=== PATIENT | female | born 1950 | race Caucasian/White ===

== ENCOUNTER 2020-04-17 10:02 | Outpatient (CLI) | payer MEDICARE, OTHER, SELFPAY ==
--- NOTE | ~2020-04-17 | MM_ITS ---
EXAMINATION: MM screening allie BI w mauricio HISTORY: Screening TECHNIQUE: Craniocaudal and mediolateral oblique 3-D tomosynthesis images were obtained and synthetic 2-D images were generated. CAD analysis was submitted and interpreted. COMPARISON: Comparison to multiple prior studies sequentially, with oldest reviewed study dated 12/16. BREAST PARENCHYMAL COMPOSITION: There are scattered areas of fibroglandular density. FINDINGS: Stable bilateral breast asymmetries and calcifications There is no evidence of suspicious m ass, calcification, or architectural distortion to suggest malignancy in either breast. There has bee n no suspicious interval change. IMPRESSION: 1. No mammographic evidence of malignancy. 2. Recommend routine screening mammography in one year. BI-RADS Category 2: Benign finding(s). Reviewed, dictated and finalized at location A.
--- NOTE | ~2020-04-17 | DEXA_ITS ---
Bone Density Report Name: Carolina Rai Age: 69 Sex: Female Ethnicity: White Date of : 1950 Indication: postmenopausal; cancer; asthma or emphysema; hysterectomy; Referring Provider: JameMesha Study: Bone densitometry was performed. Exam Date: April 17, 2020 Accession number: [id number] Bone Density: Region BMD T-score Z-score Classification AP Spine (L1, L2, L3) 0.954 -0.6 1.6 Normal Femoral Neck (Left) 0.603 -2.2 -0.3 Osteopenia Total Hip (Left) 0.761 -1.5 0.1 Osteopenia Total Hip Bilateral Avg 0.745 -1.6 -0.1 Osteopenia Femoral Neck (Right) 0.635 -1.9 0.0 Osteopenia Total Hip (Right) 0.729 -1.7 -0.2 Osteopenia World Health Organization criteria for BMD impression classify patients as: Normal (T-score at or above -1.0), Osteopenia (T-score between -1.0 and -2.5), or Osteoporosis (T-score at or below -2.5). 10-year Fracture Risk(1): Major Osteoporotic Fracture 12% Hip Fracture 2.7% Reported Risk Factors: [place] (), Neck BMD=0.603, BMI=31.2 (1) FRAX(R) Version 3.08. Fracture probability calculated for an untreated patient. Fracture probability may be lower if the patient has received treatment. Clinical Information Provided by Patient: Has used the following medications: Vitamin D, Calcium Has the following medical conditions: Asthma or Emphysema, Cancer, Hysterectomy Patient maximum height was 60 Menopause Age: 48 Drinks caffeinated beverages Onset of menses at age 13 Number of children 3 Impression: The patient has low bone mass, based on the Left Femoral Neck T-score. The patient has an estimated ten-year risk of hip fracture of 2.7% and an estimated ten-year risk of major fracture of 12%, based on the WHO FRAX algorithm. Discussion: BONE DENSITY IS LOW AT ONE OR MORE SKELETAL SITES. This patient's lowest T-score is low at one or more skeletal sites. It meets the World Health Organization's (WHO) criteria for ?low bone mass? (T-score between -1.0 and -2.5). The patient's 10-year risk of fracture as calculated by FRAX is less than the threshold where pharmacological therapy is recommended by the National Osteoporosis Foundation (NOF). However, all treatment decisions require clinical judgment and consideration of individual patient factors, including patient preferences, comorbidities, previous drug use, risk factors not captured in the FRAX model (e.g., frailty, falls, vitamin D deficiency, increased bone turnover, interval significant decline in bone density) and possible under or overestimation of fracture risk by FRAX. The patient should follow a healthful lifestyle (good nutrition with adequate calcium and vitamin D, and appropriate weight-bearing exercise). Follow-Up: Consider repeating this study in 2 to 3 years to reassess this patient's status, or sooner if t
== END 2020-04-17 10:03 | disposition home or self-care (01) ==
PROVIDERS: PCP Physician Assistant; Visit Provider Physician Assistant
DX: Z12.31 Encounter for screening mammogram for malignant neoplasm of breast (principal); Z78.0 Asymptomatic menopausal state; M85.89 Other specified disorders of bone density and structure, multiple sites
CPT/HCPCS: 77063; 77067; 77080

== ENCOUNTER 2021-04-19 09:01 | Outpatient (CLI) | payer MEDICARE, SELFPAY ==
--- NOTE | ~2021-04-19 | MM_ITS ---
EXAMINATION: MM screening allie BI w mauricio HISTORY: Screening TECHNIQUE: Craniocaudal and mediolateral oblique 3-D tomosynthesis images were obtained and synthetic 2-D images were generated. CAD analysis was submitted and interpreted. COMPARISON: Comparison to multiple prior studies sequentially, with oldest reviewed study dated 01/16. BREAST PARENCHYMAL COMPOSITION: Breast composed of scattered areas of fibroglandular density. FINDINGS: There is a new 8mm mass in the central aspect of the left breast, middle depth. There is a developing focal asymmetry lower aspect of the right breast posteriorly on MLO view. IMPRESSION: 1. Developing right breast asymmetry and left breast mass. 2. Additional mammographic views and possible breast ultrasound are recommended. BI-RADS Category 0: Incomplete: Needs additional imaging evaluation. Reviewed, dictated and finalized at location A. IMPRESSION: 1. Developing right breast asymmetry and left breast mass. 2. Additional mammographic views and possible breast ultrasound are recommended . BI-RADS Category 0: Incomplete: Needs additional imaging evaluation.
== END 2021-04-19 09:02 | disposition home or self-care (01) ==
LOC: ANHIMG 09:02
PROVIDERS: PCP Physician Assistant; Visit Provider Physician Assistant
DX: Z12.31 Encounter for screening mammogram for malignant neoplasm of breast (principal)
CPT/HCPCS: 77063; 77067

== ENCOUNTER 2021-05-07 12:06 | Outpatient (CLI) | payer MEDICARE, SELFPAY ==
--- NOTE | ~2021-05-07 | US_ITS ---
Please refer to diagnostic mammogram report dated 05/07/2021 for details. Reviewed, dictated and finalized at location A.
--- NOTE | ~2021-05-07 | MM_ITS ---
EXAMINATION: MM diagnostic allie BI w mauricio HISTORY: Follow-up breast asymmetries TECHNIQUE: Additional 3-D tomosynthesis images of the breasts were performed and synthetic 2-D images were generated. CAD analysis was submitted and interpreted. High resolution complete bilateral breas t ultrasound was performed. COMPARISON: 04/19/2021 BREAST PARENCHYMAL COMPOSITION: Breast composed of scattered areas of fibroglandular density. FINDINGS: MAMMOGRAPHIC FINDINGS: There are scattered asymmetries in the right breast which are less dense with spot compression views. No suspicious architectural distortion or abnormal calcifications. Next film there is a mass in the central aspect of the left breast measuring 9 mm . ULTRASOUND: Complete bilateral US of all 4 quadrants of the breasts and retroareolar region was reviewed. Normal heterogeneous echotexture in both breasts. No discrete mass is identified. IMPRESSION: 1. No sonographic correlate to 9 mm left breast mass located centrally. Stereotactic left breast biop sy recommended. BI-RADS Category 4. 2. No sonographic correlate to right breast asymmetries, likely scattered fibroglandular tissue. Six- month follow-up diagnostic mammogram and possible ultrasound recommended. BI-RADS Category 3. Reviewed, dictated and finalized at location A. IMPRESSION: 1. No sonographic correlate to 9 mm left breast mass located centrally. Stereot actic left breast biopsy recommended. BI-RADS Category 4. 2. No sonographic correlate to right breast asymmetries, likely scattered fibro glandular tissue. Six-month follow-up diagnostic mammogram and possible ultraso und recommended. BI-RADS Category 3.
== END 2021-05-07 12:07 | disposition home or self-care (01) ==
LOC: ANHIMG 12:07
PROVIDERS: PCP Physician Assistant; Visit Provider Physician Assistant
DX: R92.8 Other abnormal and inconclusive findings on diagnostic imaging of breast (principal)
CPT/HCPCS: 76641; 77062; 77066; G0279

== ENCOUNTER 2021-06-23 08:03 | Emergency (ER) | payer MEDICARE, SELFPAY ==
[2021-06-23 08:12] VITALS: BP 112/76; PULSE 102; RESP 18; TEMP 37.5; O2SAT 97
--- NOTE | 2021-06-23 08:18 | ED.URI ---
HPI - URI/Sore Throat General Chief Complaint: Upper Respiratory Infection Stated Complaint: sinus infection Time Seen by Provider: 06/23/21 08:24 Source: patient and RN notes reviewed Mode of arrival: ambulatory Limitations: no limitations History of Present Illness HPI Narrative: 70-year-old female presents with concern for sinus congestion, sinus pressure, postnasal drainage, rhinorrhea, persistent cough. Reports symptoms started on Thursday. Reports she has been taking Sudafed without relief. She denies shortness of breath, body aches, chills, fever, sweats. Reports she is vaccinated Covid. MD elicited complaint: cough and nasal congestion Related Data Home Medications Medication Instructions Recorded Confirmed escitalopram oxalate 10 mg tablet 10 mg PO DAILY 04/15/21 06/23/21 omeprazole 20 mg capsule,delayed 20 mg PO DAILY 04/15/21 06/23/21 release celecoxib 200 mg PO DAILY 06/23/21 06/23/21 fluticasone propion-salmeterol 1 puff INHALATION PRN PRN 06/23/21 06/23/21 [Advair HFA] rosuvastatin 5 mg PO DAILY 06/23/21 06/23/21 Allergies Allergy/AdvReac Type Severity Reaction Status Date / Time nitrofurantoin Allergy Severe Hives Verified 06/23/21 08:31 cephalexin Allergy Unknown Hives Verified 06/23/21 08:31 codeine Allergy Unknown Abdominal Verified 06/23/21 08:31 Pain Penicillins Allergy Unknown Swelling Verified 06/23/21 08:31 Review of Systems Review of Systems: CONSTITUTIONAL: Denies malaise, chills, sweats, or fever. EYES: Denies visual changes, redness, or discharge. ENT: Reports rhinorrhea, congestion, sinus pain, and scratchy throat. CARDIOVASCULAR: Denies chest pain, palpitations, or edema. RESPIRATORY: Reports cough. Denies dyspnea. GASTROINTESTINAL: Denies abdominal pain, nausea, vomiting, diarrhea SKIN: Denies rash or itching. MUSCULOSKELETAL: Denies myalgia. NEUROLOGIC: Reports headache. All systems reviewed & are unremarkable except as noted in HPI and below PMFSH Past Medical History Medical History (Updated 06/23/21 @ 08:44 by Ally Polanco NP) ADHD Asthma Depression Surgical History Surgical History H/O adenoidectomy History of appendectomy Hx of hysterectomy Hx of tonsillectomy Family History Family History Sibling Hypertension Grandparent Cerebrovascular accident Diabetes mellitus Father Family history of malignant neoplasm of urinary bladder, Onset Age: 68 Family history of alcoholism, Onset Age: 68 Mother Family history of dementia, Onset Age: 84 Social History Social History Smoking status: Never smoker Alcohol intake: current Comments At time of signature, agree with nursing past medical, surgical, social and family history. There is no relevant family history pertinent to the presenting complaint Exam Narrative: GENERAL: Well-appearing, well-nourished, and in no acute distress. HEAD: Normocephalic EYES: PERRLA, conjunctivae clear ENT: Nares clear, turbinates edematous and erythematous, clear discharge. Mucous membranes moist. TM pearly costello with dull light reflex bilaterally; no tragal tenderness. Oropharynx not erythematous without lesions. Tonsils not enlarged and without exudate, no drooling, no hoarseness, no trismus, uvula midline. NECK: Supple. No lymphadenopathy CHEST: Clear to auscultation, breath sounds equal. No wheezing, rhonchi, rales, or stridor. No respiratory distress, speaks in full sentences. Cough noted HEART: Regular rate and rhythm. No murmur heard. SKIN: Warm, dry, no rash. NEURO: Alert and oriented x3. PSYCH: Normal mood and affect Course Course Emergency Course: Patient is aware of diagnosis, understands and agrees to treatment plan. Anticipatory guidance given. Patient agrees to follow-up as directed and is aware of reasons to see
== END 2021-06-23 08:55 | disposition home or self-care (01) ==
PROVIDERS: Emergency Provider Nurse Practitioner; PCP Physician Assistant
DX: J06.9 Acute upper respiratory infection, unspecified (principal); Z20.822 Contact with and (suspected) exposure to COVID-19; J45.909 Unspecified asthma, uncomplicated; F32.A Depression, unspecified
CPT/HCPCS: 87426; 99213; C9803; G0463

== ENCOUNTER 2023-11-15 08:11 | Emergency (ER) | payer MEDICARE, SELFPAY ==
--- NOTE | ~2023-11-15 | XR_ITS ---
XR ribs RT 2V w CXR 2V DATE: 11/15/2023 08:56 INDICATION: Right chest pain following fall today TECHNIQUE: PA and lateral chest. 3 views of the right ribs. COMPARISON: 04/16/2015 2 view chest 05/24/2015 CT chest FINDINGS: No displaced right rib fracture is evident. Bilateral glenohumeral osteoarthritis is noted. Dextroscoliosis and degenerative spurring of the thoracolumbar spine. Osteopenia. Heart size is within normal range. No hilar or mediastinal enlargement. No pulmonary infiltrate or co nsolidation, pleural effusion or pulmonary vascular congestion or pneumothorax. Clips, right upper quadrant. IMPRESSION: No displaced right rib fracture is evident No active cardiopulmonary disease Reviewed, dictated and finalized at location A.
[2023-11-15 08:14] VITALS: BP 150/68; PULSE 62; RESP 20; TEMP 36.4; O2SAT 98
[2023-11-15] MEDS: TETANUS,DIPHTHERIA,AC PERTUSSIS ADULT (0.5 ML) BOOSTRIX IM (08:45)
--- NOTE | 2023-11-15 09:06 | ED.GENADULT ---
HPI - General Adult General Chief complaint: Wound/Laceration Stated complaint: dog bite Time Seen by Provider: 11/15/23 08:26 History of Present Illness HPI narrative: Patient is a 73-year-old female who presents ER with right-sided chest wall and breast pain after fall this morning. She was walking a terrier when it took off on her and she tripped and fell forwards. She did not strike her head or lose consciousness. She does have bruising to her right elbow as well as her right knee. She is ambulatory and has full range of motion in both extremities. She is unsure when her last tetanus shot was. No difficulty breathing but has mild pain with movement and deep breath. She does not take any blood thinners. Related Data Home Medications Medication Instructions Recorded Confirmed escitalopram oxalate 10 mg tablet 10 mg PO DAILY 04/15/21 04/15/23 (Lexapro) omeprazole 20 mg capsule,delayed 20 mg PO DAILY 04/15/21 04/15/23 release fluticasone propionate 115 1 puff inhalation PRN PRN 06/23/21 04/15/23 mcg-salmeterol 21 mcg/actuation difficulty breathing HFA inhaler (Advair HFA) rosuvastatin 5 mg tablet 5 mg PO DAILY 06/23/21 04/15/23 tamoxifen 20 mg tablet 20 mg PO DAILY 04/16/22 04/15/23 Allergies Allergy/AdvReac Type Severity Reaction Status Date / Time nitrofurantoin Allergy Severe Hives Verified 11/15/23 08:18 cephalexin Allergy Unknown Hives Verified 11/15/23 08:18 codeine Allergy Unknown Abdominal Verified 11/15/23 08:18 Pain Penicillins Allergy Unknown Swelling Verified 11/15/23 08:18 Review of Systems Review of Systems: All systems reviewed & are unremarkable except as noted in HPI and below Constitutional: Constitutional: Reports no additional constitutional complaints ENT: Reports system reviewed and no additional complaints, except as documented Cardiovascular: Cardiovascular: Reports no additional cardiovascular complaints Respiratory: Respiratory: Reports no additional respiratory complaints Musculoskeletal: Musculoskeletal: Denies arthralgias, Denies joint swelling and Denies muscle cramps PMFSH Past Medical History Medical History ADHD Asthma Depression Surgical History Surgical History H/O adenoidectomy History of appendectomy History of lumpectomy Hx of hysterectomy Hx of tonsillectomy Family History Family History Sibling Hypertension Grandparent Cerebrovascular accident Diabetes mellitus Father Family history of malignant neoplasm of urinary bladder, Onset Age: 68 Family history of alcoholism, Onset Age: 68 Mother Family history of dementia, Onset Age: 84 Social History Social History Smoking status: Never smoker Alcohol intake: current Exam Narrative: GENERAL: Well-appearing, well-nourished, and in no acute distress. HEAD: Normocephalic, atraumatic. ENT: Mucous membranes moist. CHEST: Clear to auscultation. No respiratory distress. No bruising or palpable hematoma to the right breast. No chest wall tenderness. HEART: Regular rate and rhythm. Normal peripheral pulses. ABDOMEN: Soft, nontender, nondistended EXTREMITIES: Normal range of motion. No edema. Abrasion over the right lateral elbow and right lateral knee with no joint line tenderness or other restriction mobility. SKIN: Warm, dry, no rash. NEURO: Alert and oriented x3. PSYCH: Normal mood and affect. Course Course Emergency Course: Tetanus updated. Imaging negative. Her appropriate for discharge home with anti-inflammatory medication. Educated that she could develop a bruise over her breast or chest wall in the coming days. Vital Signs Vital signs: Vital Signs Temperature 97.6 F 11/15/23 08:14 Pulse Rate 62 11/15/23 08:14 Res
[2023-11-15 09:40] VITALS: BP 142/68; PULSE 64; RESP 19; O2SAT 98
== END 2023-11-15 09:42 | disposition home or self-care (01) ==
PROVIDERS: Emergency Provider Emergency Medicine; PCP Physician Assistant
DX: R07.89 Other chest pain (principal); S50.311A Abrasion of right elbow, initial encounter; S80.211A Abrasion, right knee, initial encounter; Z23 Encounter for immunization; J45.909 Unspecified asthma, uncomplicated; F32.A Depression, unspecified; F90.9 Attention-deficit hyperactivity disorder, unspecified type; Z90.710 Acquired absence of both cervix and uterus
CPT/HCPCS: 71046; 71100; 90471; 90715; 99283

== ENCOUNTER 2024-02-10 07:41 | Outpatient (CLI) | payer MEDICARE, SELFPAY ==
--- NOTE | ~2024-02-10 | DEXA_ITS ---
Bone Density Report Name: CAMACHO ESCALERA Age: 73 Sex: Female Ethnicity: White Date of : 1950 Indication: osteopenia; cancer; asthma or emphysema; Referring Provider: DELORES, MARIAMA Study: Bone densitometry was performed. Exam Date: February 10, 2024 Accession number: [id number] Bone Density: Region BMD T-score Z-score Classification AP Spine(L1-L4) 1.054 0.1 2.5 Normal Femoral Neck (Left) 0.622 -2.0 0.1 Osteopenia Total Hip (Left) 0.804 -1.1 0.7 Osteopenia Femoral Neck (Right) 0.721 -1.2 0.9 Osteopenia Total Hip (Right) 0.756 -1.5 0.3 Osteopenia Total Hip Mean 0.780 -1.3 0.5 Osteopenia World Health Organization criteria for BMD impression classify patients as: Normal (T-score at or above -1.0), Osteopenia (T-score between -1.0 and -2.5), or Osteoporosis (T-score at or below -2.5). 10-year Fracture Risk(1): Major Osteoporotic Fracture 13% Hip Fracture 3.3% Reported Risk Factors: [place] (), Neck BMD=0.622, BMI=31.8 (1) FRAX(R) Version 3.08. Fracture probability calculated for an untreated patient. Fracture probability may be lower if the patient has received treatment. Previous Exams: Region Exam Age BMD T-score BMD Change BMD Change Date g/cm2 vs Baseline vs Previous Total Hip(Left) 02/10/2024 73 0.804 -1.1 0.042 (5.5%)* 0.042 (5.5%)* 04/17/2020 69 0.761 -1.5 Total Hip(Right) 02/10/2024 73 0.756 -1.5 0.027 (3.7%) 0.027 (3.7%) 04/17/2020 69 0.729 -1.7 *Denotes significance at 95% confidence level, LSC for Total Hip = 0.027 g/cm2 Clinical Information Provided by Patient: Has used the following medications: Vitamin D Has the following medical conditions: Asthma or Emphysema, Cancer Patient maximum height was 60.0 Menopause Age: 48 Drinks caffeinated beverages Onset of menses at age 12 Number of children 3 Impression: The patient has low bone mass, based on the Left Femoral Neck T-score. The patient has an estimated ten-year risk of hip fracture of 3.3% and an estimated ten-year risk of major fracture of 13%, based on the WHO FRAX algorithm. No significant bone loss was observed. Discussion: BONE DENSITY IS LOW AT ONE OR MORE SKELETAL SITES. THE PATIENT'S BMD AND CLINICAL RISK FACTORS CONTRIBUTE TO THIS PATIENT'S INCREASED RISK OF FRACTURE. This patient's lowest T-score is low at one or more skeletal sites. It meets the World Health Organization's (WHO) criteria for ?low bone mass? (T-score between -1.0 and -2.5).
== END 2024-02-10 07:42 | disposition home or self-care (01) ==
LOC: ANHIMG 07:43
PROVIDERS: PCP Physician Assistant; Visit Provider Physician Assistant
DX: Z78.0 Asymptomatic menopausal state (principal); M85.89 Other specified disorders of bone density and structure, multiple sites
CPT/HCPCS: 77080

== ENCOUNTER 2025-02-21 17:52 | Emergency (ER) | payer MEDICARE, SELFPAY ==
--- OUTSIDE RECORDS SUMMARY | 2018-01-28 06:15 | XMS_ITS | Continuity of Care Document ---
Author Organization [facility] Address [address] [address] Phone Care Team Providers Care Toddler Caregiver Name Role Phone Feliciano Lauren MD Unavailable Unavailable Allergies, Adverse Reactions, Alerts Substance Reaction Status Criticality Penicillins Active No Information Medications Medication Instructions Dosage Effective Dates (start - stop) Status Comments Lexapro 5 mg tablet take 1 tablet by ora l route every day 5 MG - Active Procedures Procedure Date OFFICE/OUTPATIENT VISIT EST OFFICE/OUTPATIENT VISIT EST OFFICE/OUTPATIENT VISIT EST OFFICE/OUTPATIENT VISIT EST OFFICE/OUTPATIENT VISIT [facility] Advance Directives Directive Yes / No Effective Date File Name No Information Encounters Encounter Description Practice Location Reason(s) For Visit Diagnoses Date Provider Providers Copied on Encounter OFFICE/OUTPA TIENT VISIT EST [facility], [address] [place] [address], [id number], tel:[phone] [facility] Zain Primary osteoarthritis of right knee 8 Xin Wiggins. [address] [place], [place], [id number] . tel: [phone] OFFICE/OUTPA TIENT VISIT EST [facility], [address] [place] [address], [id number], tel:[phone] [facility] Zain FU L KNEE EVAL R KNEE (chief complaint) Body mass index (BMI) 31.0-31.9, adultPrimary osteoarthritis of left kneePrimary osteoarthritis of right knee 8 Xin Wiggins. [address] [place], [place], [id number] . tel: [phone] OFFICE/OUTPA TIENT VISIT [facility], [address] [place] [address], [facility], [phone] [facility] [place] Body mass index (BMI) 30.0-30.9, adultPrimary osteoarthritis of left knee [facility]. [address] [place] [address], [id number] . tel: [phone] OFFICE/OUTPA TIENT VISIT [facility], [address] [place] [address], [id number], [phone] [facility] Primary osteoarthritis of left knee 7 [facility]. [address] [place] [address], [id number] . tel: [phone] OFFICE/OUTPA TIENT VISIT [facility], [address] [place] [address], [id number], [phone] [facility] [place] Body mass index (BMI) 30.0-30.9, adultPrimary osteoarthritis of left kneePrimary osteoarthritis of right knee 7 [facility]. [address] [place] [address], [id number] . tel: [phone] Family History Family Member Type Diagnosis Age At Onset Brother Problem (finding) Alive and well Payers Payer name Insurance type Covered constitution party ID Genoveva mcdonough(s) [employer] [facility] Employees [place] [id number] Social History Type Description Quantity Date Captured Comments Alcohol Use Details Unknown Caffeine Use Details Unknown Tobacco Use Status Never smoked tobacco 2017 Smoking Status Never smoker Non-Smoking Tobacco Use Details : No Details Available : No Details Available Sex Female Chief Complaint And Reason For Visit No Information Reason For Referral Reason For Referral No Information Plan Of Treatment Date Type Action Status Referral Ordered: RADEX KNE 1/2 VIEWS LT ordered Referral Ordered: RADEX KNE 3 VIEWS RT ordered Referral Ordered: RADEX KNE 1/2 VIEWS RT ordered Referral Ordered: RADEX KNE 3 VIEWS LT ordered History Of Present Illness Encounter Date Complaint History Of Prese nt Illness FU L KNEE EVAL R KNEE Functional Status Date Functional Assessmen t No Information Instructions Date Instruction Additional Infor mation activity as tolerated Related to Primary osteoarthritis of right knee apply heating pad or ice as tolerated Related to Primary osteoarthritis of right knee Prescribed activity/ exercise education Related to Body mass index (BMI) 31.0-31.9, adult apply heating pad or ice as tolerated Related to Primary osteoarthritis of right knee activity as tolerated Related to Primary osteoarthritis of right knee Giving encouragement to exercise Related to Body mass index (BMI) 30.0-30.9, adult activity as tolerated Related to Primary osteoarthritis of left knee apply heating pad or ice as tolerated Related to Primary osteoarthritis of left knee Fall risk home exerc ise program handout provided activity as tolerated Related to Primary osteoarthritis of left knee apply heating pad or ice as tolerated Related to Primary osteoarthritis of left knee elevate higher than your heart R elated to Primary osteoarthritis of left knee immobilize if directed Related t o Primary osteoarthritis of left knee home exercise program Related to Primary osteoarthritis of left knee home exercise program Related to Primary osteoarthritis of left knee apply heating pad or ice as tolerated Related to Primary osteoarthritis of left knee Giving encouragement to exercise Related to Body mass index (BMI) 30.0-30.9, adult Assessments Type Assessment Date assessment Primary osteoarthritis of right knee Patient Care Teams Name Effective Dates (start - stop) Status Members No Information
--- NOTE | ~2025-02-21 | CT_ITS ---
EXAMINATION: CTA brain carotid DATE: 02/21/2025 21:34 CDT INDICATION: Vertigo. TECHNIQUE: Computed tomographic angiography (CTA) of the head was performed without and with 100 mL Omnipaque-350 intravenous contrast. CTA of the neck was performed with intravenous contrast. The dose-length product was 979.57 mGy-cm. Maximum intensity projection and volume rendered 3D-reconstructions were created by the technologist on a separate workstation. COMPARISON: CT dated 02/21/2025. FINDINGS: HEAD CTA: No intracranial vascular abnormality. No evidence for aneurysm, significant stenosis or occlusion. Mild intracranial atherosclerosis. Codominant vertebral arteries. NECK CTA: Vertebral arteries are widely patent. The common carotid arteries are widely patent at the origins. No evidence for dissection or significant stenosis in either carotid artery. Lung apices are unremarkable. Visualized aspects of the aorta are unremarkable. IMPRESSION: 1: Unremarkable CT angiography brain and neck. Reviewed, dictated and finalized at location A.
--- NOTE | ~2025-02-21 | CT_ITS ---
EXAMINATION: CT brain wo con DATE: 02/21/2025 19:17 INDICATION: Dizziness TECHNIQUE: Computed tomography (CT) of the head was performed without intravenous contrast. The dose-length product was 605.33 mGy-cm. COMPARISON: None FINDINGS: Brain parenchymal volume is normal for age. There are scattered mild periventricular and subcortical white matter changes, most likely related to small vessel ischemic disease (microangiopathy). Paranasal sinuses and mastoids are pneumatized. No depressed skull fractures. There is intracranial atherosclerosis. IMPRESSION: 1. No acute intracranial abnormality. Reviewed, dictated and finalized at location A.
--- NOTE | ~2025-02-21 | XR_ITS ---
EXAMINATION: XR chest 2V 02/21/2025 19:20 INDICATION: Weakness PROCEDURE: 2 view chest COMPARISON: 11/15/2023 FINDINGS: The lungs are clear. The cardiomediastinal silhouette is within normal limits. There are no pleural effusions. There is no pneumothorax suspected. There is accentuated kyphosis at the thoracolumbar junction. Moderate thoracic spondylosis. IMPRESSION: 1: NO ACUTE CARDIOPULMONARY DISEASE. Reviewed, dictated and finalized at location A.
--- OUTSIDE RECORDS SUMMARY | 2025-02-21 17:00 | XMS_ITS | Encounter Summary ---
Author Organization [facility] Healthcare Address [address] [place] [address] Care Team Providers Care Machine Printer Name Role Phone Mesha Kilgore Primary Care Provider [phone] Stan Mcconnell MD Unavailable [phone] Sylvia Gunn MD Unavailable Lorene Palma MD PhD Unavailable [phone] Reason for Visit * Reason Comments Dizziness Nauseated, fatigue Encounter Details Date Type Department Care Team (Late st Contact Info) Description 02/21/2025 5:00 PM CDT Office Visit [facility] Medical Group Convenient Care at [address] [address] Ayesha Henderson NP [address] [place] [id number] Dizziness (Primary Dx); Intractable headache, unspecified chronicity pattern, unspecified headache type; Fatigue, unspecified type Social History Tobacco Use Types Packs/Day Years Used Date Smoking Tobacco: Never Smokeless Tobacco: Never Alcohol Use Standard Drinks/Week Comments Yes 0 (1 standard drink = 0.6 oz pur e alcohol) Socially AUDIT-C Answer Date Recorded Q1: How often do you have a drink containing alc ohol? Monthly or less 12/06/2024 Q2: How many drinks containi ng alcohol do you have on a typical day when you are drinking? 1 or 2 12/06/2024 Q3: How often do you have si x or more drinks on one occasion? 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 Gender Identity Not on file Sexual Orientation Not on file Occupation Industry Job Start Date Job End Date Retired Not on file Not on file Not on file documented as of this encounter Last Filed Vital Signs Vital Sign Reading Time Taken Comments Blood Pressure 135/84 02/21/2025 4:49 PM CDT Pulse 65 02/21/2025 4:49 PM CDT Temperature 36.8 C (98.3 F) 02/21/2025 4:42 PM CDT Respiratory Rate 18 02/21/2025 4:49 PM CDT Oxygen Saturation 97% 02/21/2025 4:49 PM CDT Inhaled Oxygen Concentration - - Weight 74.4 kg (164 lb) 02/21/2025 4:42 PM CDT Height - - Body Mass Index 30 12/12/2024 11:47 AM CDT documented in this encounter Progress Notes * Ayesha Henderson, PANTOGRAPH MACHINE OPERATOR - 02/21/2025 5:00 PM CDT Images from the original note were not included. Subjective/Objective Patient ID: Caroilna Rai is a 74 y.o. female. This patient has verbally consented to recording this visit in order to utilize AI technology in generating this note. Chief Complaint Dizziness (Nauseated, fatigue /) History of Present Illness Carolina Rai is a 74 year old female who presents with dizziness and nausea. She is accompanied by her daughter. She has been experiencing dizziness and nausea since Thursday, initially attributing the symptoms to fatigue and overexertion. Despite resting, the dizziness persisted into the next day, accompanied bynausea. The dizziness occurs without specific triggers and can happen even when sitting still. She e xperienced vomiting on Thursday morning after eating scrambled eggs and toast, which did not alleviate her symptoms. She has a history of vertigo, with a single episode occurring five years ago. She does not take medication specifically for vertigo but mentions that her current medications cause her to shake. She experiences nausea and shaking when hungry or after eating, which she attempts to alleviate by eatingmore, though this does not help. On Thursday, she experienced a severe headache, described as 'horrible,' coinciding with the onset ofher current symptoms. She also reports feeling weak and wobbly, with her daughter noting occasionalconfusion, which she attributes to stress. 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 She has gained ten pounds recently, which she attributes to eating more in an attempt to feel better. She tries to eat healthily, including fish and salads. No recent accidents or falls. No vision changes, blurry vision, spots, chest pain, difficulty breathing, or double vision currently. No recent ear issues. Review of Systems All other systems reviewed and are negative. Physical Exam HEENT: Ears normal. CHEST: Lungs clear to auscultation. CARDIOVASCULAR: Heart sounds normal. NEUROLOGICAL: Neurological exam normal. Physical Exam Vitals reviewed. Constitutional: General: She is not in acute distress. Appearance: Normal appearance. She is not ill-appearing. HENT: Head: Normocephalic. Mouth/Throat: Lips: [place]. Eyes: Extraocular Movements: Right eye: Normal extraocular motion and no nystagmus. Left eye: Normal extraocular motion and no nystagmus. Cardiovascular: Rate and Rhythm: Normal rate and regular rhythm. Pulmonary: Effort: Pulmonary effort is normal. Breath sounds: Normal breath sounds. Skin: General: Skin is warm. Neurological: General: No focal deficit present. Mental Status: She is alert and oriented to person, place, and time. Cranial Nerves: Cranial nerves 2-12 are intact. Sensory: Sensation is intact. Coordination: Coordination is intact. Gait: Gait is intact. Comments: [place] Hallpike maneuver not tolerated by patient due to pain and dizziness. Psychiatric: Mood and Affect: Mood normal. Vitals: 02/21/25 1642 02/21/25 1648 02/21/25 1649 BP: 134/78 126/85 135/84 BP Location: Right arm Right arm Right arm Patient Position: Lying Sitting Standing Pulse: 75 63 65 Resp: 18 18 Temp: 36.8 ??C (98.3 ??F) TempSrc: Continuous Temporal Temperature SpO2: 97% 97% 97% Weight: 74.4 kg (164 lb) Past Medical History: Diagnosis Date Asthma Breast cancer (HCC) Depression History of radiation therapy Hyperlipidemia PONV (postoperative nausea and vomiting) Sleep apnea Current Outpatient Medications: Advair HFA 115-21 mcg/actuation inhaler, INHALE 2 PUFFS BY MOUTH TWICE DAILY FOR 30 DAYS FOR ASTHMAAND RINSE MOUTH AND SPIT AFTER USE, Disp: , Rfl: albuterol HFA (PROVENTIL HFA,VENTOLIN HFA,PROAIR HFA) 90 mcg/actuation inhaler, INHALE 1 TO 2 PUFFSBY MOUTH EVERY 4 TO 6 HOURS NEEDED FOR SHORTNESS OF BREATH FOR WHEEZING, Disp: , Rfl: calcium carb-D3-mag ox-zinc ox 333 mg-133 unit -133 mg-5 mg tablet, Take by mouth, Disp: , Rfl: cholecalciferol (VITAMIN D-3) 25 mcg (1,000 unit) tablet, Take 1 tablet (1,000 Units total) by mouth college hire before breakfast, Disp: , Rfl: cyanocobalamin (Vitamin B-12) 50 mcg tablet, Take 1 tablet (50 mcg total) by mouth daily, Disp: , Rfl: escitalopram (LEXAPRO) 20 mg tablet, Take 1 tablet by mouth once daily, Disp: 90 tablet, Rfl: 0 fluticasone (FLONASE) 50 mcg/actuation nasal spray, Administer 1 spray into each nostril daily, Disp: 16 g, Rfl: 3 omeprazole (PriLOSEC) 40 mg capsule, Take 1 capsule by mouth once daily, Disp: 90 capsule, Rfl: 2 rosuvastatin (CRESTOR) 5 mg tablet, Take 1 tablet (5 mg total) by mouth 3 (three) times a week, Disp: 43 tablet, Rfl: 1 tamoxifen (NOLVADEX) 20 mg tablet, Take 1 tablet (20 mg total) by mouth daily, Disp: 90 tablet, Rfl: 3 ubidecarenone (coenzyme Q10) 100 mg tablet, Take 100 mg by mouth every other day, Disp: , Rfl: vitamin E (AQUASOL E) 400 unit capsule, Take 2 capsules (800 Units total) by mouth daily, Disp: , Rfl: Allergies Allergen Reactions Nitrofurantoin Hives Cephalexin Hives Penicillins Swelling Codeine Nausea & Vomiting Social History Tobacco Use Smoking status: Never Smokeless tobacco: Never Substance and Sexual Activity Drug use: Yes Types: Alcohol Comment: occaisonaly- special occasions Sexual activity: Not Currently Partners: Male Alcohol Use: Not At Risk (12/06/2024) AUDIT-C Frequency of Alcohol Consumption: Monthly or less Average Number of Drinks: 1 or 2 Frequency of Binge Drinking: Never Past Surgical History: Procedure Laterality Date BLADDER SUSPENSION 07/2011 BREAST BIOPSY Right 06/05/2021 DCIS possible invasion BREAST BIOPSY Left 2020 begnin EYE SURGERY 2019 bilateral cataracts HYSTERECTOMY 07/2011 Partial JOINT REPLACEMENT Bilateral knees rt 2018December 2019 KNEE SURGERY Left 06/2019 MASTECTOMY, PARTIAL Right 07/29/2021 Assessment/Plan 1. Dizziness (Primary) - ECG 12 lead - POCT glucose 2. Intractable headache, unspecified chronicity pattern, unspecified headache type 3. Fatigue, unspecified type Results Recent Results (from the past 4 hours) POCT glucose Collection Time: 02/21/25 5:13 PM Result Value Ref Range Glucose Blood, POC 108 Normal Fasting 70 - 100, Random <200 mg/dL Assessment & Plan Acute dizziness and vertigo with associated nausea and vomiting Acute dizziness and vertigo with nausea and vomiting. Differential includes cardiac and neurological causes. Neurological exam normal. - Check blood sugar level and perform EKG. 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 - Discussed meclizine for vertigo. - Attempted the [place]-Hallpike maneuver however patient was not tolerating it, given symptoms that patient was having and medical history, I determined that I was going to send patient to the ER for further evaluation so did not push trying the [place]-Hallpike maneuver again. - Recommend ER visit to rule out possible neurologic or cardiac etiology of symptoms Acute headache Severe headache coincided with dizziness and nausea. Tremor possibly medication-induced Tremor possibly related to medication use. No specific medication identified. Education -GO TO ER, daughter is driving her Disposition Treatment plan including expectations, follow up, and return precautions discussed with patient/parent, verbalizes understanding. Medication dosage, use, and potential adverse reactions discussed with patient/parent. Advised to follow up with PCP if symptoms do not resolve as expected or sooner if condition worsens. Signs/symptoms warranting ER evaluation reviewed. Patient and/or guardian was given an opportunity to ask questions, questions answered. Ayesha Henderson NP This office note has been partially dictated using [employer]vas[employer] software, and as a result portions of the record may have been created with this software. Occasional wrong-word or '[id number]' substitutions may have occurred due to the inherent limitations of voice recognition software. Read the chartcarefully and recognize, using context, where substitutions have occurred. Cosigned by Bandar Stafford MD at 02/21/2025 5:54 PM CDT documented in this encounter Plan of Treatment Not on file documented as of this encounter Procedures Procedure Name Priority Date/Time Associated Diagnosis Comments ECG 12-LEAD Routine 02/21/2025 5:21 PM CDT Dizziness POCT GLUCOSE Routine 02/21/2025 5:13 PM CDT Dizziness documented in this encounter Results * ECG 12 lead (02/21/2025 5:21 PM CDT) Ayesha Henderson NP ECG ORDERABLES Final Result * POCT glucose (02/21/2025 5:13 PM CDT) [facility] Glucose Blood, POC 108 Normal Fasting 70 - 100, Random <200 mg/dL Blood 02/21/2025 5:13 PM CDT us Ayesha Henderson NP POINT OF CARE TEST ORDERABLES Final Result documented in this encounter Visit Diagnoses Diagnosis Dizziness- Primary Dizziness and giddiness Intractable headache, unspecified chronicity pattern, unspecified headache type Fatigue, unspecified type documented in this encounter Care Teams Machine Printer Relationship Specialty Start Date End Date Mesha Kilgore PA [address] [facility] [address] [place] [address] PCP - General Internal Medicine 10/19/18 Stan Mcconnell MD [address] [facility] [address] [place] [address] [address] Joinery Factory Worker Cardiology 06/08/19 Sylvia Gunn MD [address] [address] Surgeon Surgical Oncology 08/05/21 Lorene Palma MD PhD [address] [facility] [address] [place] [address] Radiation Oncologist Radiation Oncology 08/30/21 documented as of this encounter
--- OUTSIDE RECORDS SUMMARY | 2025-02-21 17:00 | XMS_ITS | Encounter Summary ---
Author Organization [facility] Healthcare Address [address] [place] [address] Care Team Providers Care Attendant Honor Bar Name Role Phone Mesha Kilgore Primary Care Provider [phone] Stan Mcconnell MD Unavailable [phone] Sylvia Gunn MD Unavailable [phone] Lorene Palma MD PhD Unavailable [phone] Reason for Visit * Reason Comments Dizziness Nauseated, fatigue Encounter Details Date Type Department Care Team (Late st Contact Info) Description 02/21/2025 5:00 PM CDT Office Visit [facility] Medical Group Convenient Care at [address] [address] Ayesha Henderson NP [address] [place] [address] Dizziness (Primary Dx); Intractable headache, unspecified [...] on file 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 Subjective/Objective Patient ID: Carolina Rai is a 74 y.o. female. This [...] not ill-appearing. HENT: Head: Normocephalic. Mouth/Throat: Lips: Sylvia. Eyes: Extraocular Movements: Right eye: Normal extraocular [...] is intact. Gait: Gait is intact. Comments: [place] Hallpike maneuver not tolerated by patient due [...] 1 tablet (1,000 Units total) by mouth facilities management executive before breakfast, Disp: , Rfl: cyanocobalamin (Vitamin [...] Discussed meclizine for vertigo. - Attempted the [place]-Hallpike maneuver however patient was not tolerating it, given symptoms that patient was having and medical history, I determined that I was going to send patient to the ER for further evaluation so did not push trying the [place]-Hallpike maneuver again. - Recommend ER visit to [...] office note has been partially dictated using [email or web address] software, and as a result portions of the record may have been created with this software. Occasional wrong-word or '[id number]' substitutions may have occurred due to the [...] * POCT glucose (02/21/2025 5:13 PM CDT) [facility] Glucose Blood, POC 108 Normal Fasting 70 - 100, Random <200 mg/dL Blood 02/21/2025 5:13 PM CDT us Ayesha Henderson NP POINT OF CARE TEST ORDERABLES Final Result documented in this encounter Visit Diagnoses Diagnosis Dizziness- Primary Dizziness and giddiness Intractable headache, unspecified chronicity pattern, unspecified headache type Fatigue, unspecified type documented in this encounter Care Teams Attendant Honor Bar Relationship Specialty Start Date End Date Mesha Kilgore PA [address] [facility] [address] [place] [address] PCP - General Internal Medicine 10/19/18 Stan Mcconnell MD [address] [facility] [address] [place] [address] [address] Vehicle Window Tinter Cardiology 06/08/19 Sylvia Gunn MD [address] [address] Surgeon Surgical Oncology 08/05/21 Lorene Palma MD PhD [address] [facility] [address] [place] [address] Radiation Oncologist Radiation Oncology 08/30/21 documented as of this encounter
[2025-02-21 17:55] VITALS: BP 136/75; PULSE 59; RESP 16; TEMP 36.6; O2SAT 96
--- OUTSIDE RECORDS SUMMARY | 2025-02-21 17:55 | XMS_ITS ---
Author Organization [facility] [address] Address [address] [place] [address] Care Team Providers Care Graduation Coach Name Role Phone Mesha Kilgore Primary Care Provider [phone] Stan Mcconnell MD Unavailable [phone] Sylvia Gunn MD Unavailable [phone] Lorene Palma MD PhD Unavailable [phone] Active Problems Problem Noted Date Diagnosed Date Medicare annual wellness visit, subsequent 06/07 Assessment & Plan (06/07/2024 2:15 PM SERVICE CREW SUPERVISOR): Encouraged healthy lifestyle, good nutrition and exercise. Encouraged Calcium and Vitamin D and weight bearing exercise for bone health. Reviewed immunizations. Reviewed age appropirate screenings. Medicare Wellness Documentation is completed within the chart Radiotherapy follow-up examination 10/29/2023 BMI 31.0-31.9,adult 06/10/2023 Assessment & Plan (06/07/2024 8:44 AM SERVICE CREW SUPERVISOR): BMI Follow-up includes: Discussed diet and exercising counseling. Assessment & Plan (10/11/2023 11:21 PM CDT): Discussed the patient's BMI. The BMI is above average. BMI management plan is completed. BMI Follow-up includes: nutrition counseling, exercise counseling and education provided. Assessment & Plan (06/10/2023 8:38 AM SERVICE CREW SUPERVISOR): Discussed the patient's BMI. The BMI is above average. BMI management plan is completed. BMI Follow-up includes: nutrition counseling, exercise counseling and education provided. Obesity (BMI 30-39.9) 12/22/2022 Assessment & Plan (12/06/2024 8:45 AM CDT): Discussed the patient's BMI. The BMI is above average. BMI management plan is completed. BMI Follow-up includes: nutrition counseling, exercise counseling and education provided. Assessment & Plan (06/07/2024 8:44 AM SERVICE CREW SUPERVISOR): BMI Follow-up includes: Discussed diet and exercising counseling. Assessment & Plan (10/11/2023 11:20 PM CDT): Discussed the patient's BMI. The BMI is above average. BMI management plan is completed. BMI Follow-up includes: nutrition counseling, exercise counseling and education provided. Assessment & Plan (06/10/2023 8:38 AM SERVICE CREW SUPERVISOR): Discussed the patient's BMI. The BMI is above average. BMI management plan is completed. BMI Follow-up includes: nutrition counseling, exercise counseling and education provided. Assessment & Plan (12/22/2022 9:14 AM CDT): Discussed the patient's BMI. The BMI is above average. BMI management plan is completed. BMI Follow-up includes: nutrition counseling, exercise counseling and education provided. Menopause 12/22/2022 Assessment & Plan (06/10/2023 9:57 AM SERVICE CREW SUPERVISOR): Check DEXA Assessment & Plan (12/22/2022 6:55 PM CDT): Check DEXA Fatigue 12/22/2022 Assessment & Plan (06/07/2024 2:15 PM SERVICE CREW SUPERVISOR): Probably multifactorial. Check labs and followup to re-evaluate Assessment & Plan (10/11/2023 11:21 PM CDT): Probably multifactorial. Check labs and followup to re-evaluate Assessment & Plan (06/10/2023 9:58 AM SERVICE CREW SUPERVISOR): Probably multifactorial. Check labs and followup to re-evaluate Assessment & Plan (12/22/2022 6:55 PM CDT): Probably multifactorial. Check labs and followup to re-evaluate Left hip pain 11/20/2022 Assessment & Plan (12/22/2022 6:53 PM CDT): Resolved Assessment & Plan (11/20/2022 9:30 AM CDT): Patient has noted increased left hip and groin pain over the last couple of months. Has not really tried anything for his symptoms. No history of fall or injury. Recommend starting Mobic. Prescription sent to pharmacy. Reviewed risks benefits alternatives side effects and proper use. Kidney function is stable. Will check x-rays of the hip. Discussed differentials of osteoarthritis verses musculoskeletal versus other etiology. Will see what the x-ray shows see if she has improvement with the anti-inflammatory. If not could consider physical therapy versus referral to Orthopedics. She is in agreement with the plan Mixed stress and urge urinary incontinence 06/23 Assessment & Plan (06/07/2024 2:15 PM SERVICE CREW SUPERVISOR): Patient tried oxybutynin for her symptoms and did not like the side effects. Prefers just monitoring as currently she is able to manage through the day just getting up once or twice at night. May call at any time for referral to urogynecologist. Assessment & Plan (10/11/2023 11:19 PM CDT): Continue oxybutynin XL 10 Assessment & Plan (12/22/2022 6:50 PM CDT): Improvement with addition of oxybutynin XL 10 mg. Unable to tolerate daily due to dry mouth side effects. Has been doing every other day with great results and wants to continue with this dosing. Assessment & Plan (06/30/2022 8:05 PM SERVICE CREW SUPERVISOR): This is a significant, separately identifiable problem that was evaluated and managed on the same day as the wellness exam Patient has had urinary incontinence symptoms that seem to be increasing. Has had a bladder lift x2. Feels like those symptoms are what is returning. At times will have overactive symptoms but knows that if she goes to the bathroom more often she does have better control. Willing to consider medication. No history of glaucoma. Advised if the medication does not make it in for into will need to return her back to a urogynecologist for evaluation of the previous bladder lifts. She is in agreement with the plan Start oxybutynin 10 mg XL 1 daily. Reviewed risks benefits alternatives side effects and proper use. 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 Still on tamoxifen daily and tolerating well. Restless legs 09/25/2021 Assessment & Plan (09/25/2021 8:10 AM CDT): This is a significant, separately identifiable problem that was evaluated and managed on the same day as the wellness exam Patient has been complaining of cramps in her legs but I suspect this may actually be restless leg syndrome. Will empirically try some Requip 0.25 mg an hour before bedtime to see if it settles her legs down and if the c ramps go away. The patient is in agreement. Reviewed risks benefits alternatives side effects and proper use of the medication. 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 She is on approximately the 3rd year of tamoxifen out of 5. Tolerating well Assessment & Plan (10/11/2023 11:18 PM CDT): Continue per Dr. Angeles. She is on the 2nd year of 5 with her tamoxifen. Assessment & Plan (06/10/2023 9:56 AM SERVICE CREW SUPERVISOR): Patient with DCIS right breast. Continue per at [facility]. Continue with tamoxifen. Assessment & Plan (12/22/2022 6:53 PM CDT): Patient with DCIS breast Continuing with tamoxifen and tolerating well Assessment & Plan (09/25/2021 8:09 AM CDT): Continue per Dr. Gunn. Just finished a course of radiation and will be starting tamoxifen in the next few weeks. Assessment & Plan (07/05/2021 12:14 PM SERVICE CREW SUPERVISOR): 05/2021 - Dr. Angeles continue per her recommendations. Discussed the treatment plan BMI 32.0-32.9,adult 02/13/2021 Assessment & Plan (12/06/2024 8:45 AM CDT): Discussed the patient's BMI. The BMI is above average. BMI management plan is completed. BMI Follow-up includes: nutrition counseling, exercise counseling and education provided. Assessment & Plan (02/13/2021 7:09 AM CDT): Obesity is unchanged. Discussed the patient's BMI. The BMI is above average. BMI management plan is completed. BMI Follow-up includes: nutrition counseling, exercise counseling and education provided. Bilateral leg cramps 09/11/2019 Assessment & Plan (07/05/2021 12:16 PM SERVICE CREW SUPERVISOR): Continue to monitor electrolytes. Seems to be less when she is taking the Crestor every other day so will continue with that dosing also. She is to follow-up if it becomes localized and 1 calf notices swelling or pain so that blood cut could be ruled out. Assessment & Plan (02/29/2020 7:58 AM CDT): Improved. Monitor Assessment & Plan (09/11/2019 7:37 PM CDT): Check labs. Pre-diabetes 05/23/2019 Assessment & Plan (06/07/2024 2:15 PM SERVICE CREW SUPERVISOR): Pre-diabetes/hyperglycemia is a precursor to Dm. Stressed importance of working on diet (decrease your simple sugars and one carbohydrate with each meal) and increase you exercise to achieve weight loss and this will help prevent you from progressing to diabetes. Assessment & Plan (10/11/2023 11:20 PM CDT): Pre-diabetes/hyperglycemia is a precursor to Dm. Stressed importance of working on diet (decrease your simple sugars and one carbohydrate with each meal) and increase you exercise to achieve weight loss and this will help prevent you from progressing to diabetes. Assessment & Plan (06/10/2023 9:56 AM SERVICE CREW SUPERVISOR): Pre-diabetes/hyperglycemia is a precursor to Dm. Stressed importance of working on diet (decrease your simple sugars and one carbohydrate with each meal) and increase you exercise to achieve weight loss and this will help prevent you from progressing to diabetes. Assessment & Plan (12/22/2022 6:49 PM CDT): Pre-diabetes/hyperglycemia is a precursor to Dm. Stressed importance of working on diet (decrease your simple sugars and one carbohydrate with each meal) and increase you exercise to achieve weight loss and this will help prevent you from progressing to diabetes. Assessment & Plan (06/30/2022 8:03 PM SERVICE CREW SUPERVISOR): Pre-diabetes/hyperglycemia is a precursor to Dm. Stressed importance of working on diet (decrease your simple sugars and one carbohydrate with each meal) and increase you exercise to achieve weight loss and this will help prevent you from progressing to diabetes. Assessment & Plan (03/31/2022 10:08 AM CDT): Pre-diabetes/hyperglycemia is a precursor to Dm. Stressed importance of working on diet (decrease your simple sugars and one carbohydrate with each meal) and increase you exercise to achieve weight loss and this will help prevent you from progressing to diabetes. Assessment & Plan (09/25/2021 8:08 AM CDT): Pre-diabetes/hyperglycemia is a precursor to Dm. Stressed importance of working on diet (decrease your simple sugars and one carbohydrate with each meal) and increase you exercise to achieve weight loss and this will help prevent you from progressing to diabetes. Assessment & Plan (07/05/2021 12:16 PM SERVICE CREW SUPERVISOR): Pre-diabetes/hyperglycemia is a precursor to Dm. Stressed importance of working on diet (decrease your simple sugars and one carbohydrate with each meal) and increase you exercise to achieve weight loss and this will help prevent you from progressing to diabetes. Assessment & Plan (09/05/2020 8:54 PM SERVICE CREW SUPERVISOR): Pre-diabetes is a precursor to Dm. Stressed importance of working on diet (decrease your simple sugars and one carbohydrate with each meal) and increase you exercise to achieve weight loss and this will help prevent you from progressing to diabetes. Assessment & Plan (02/29/2020 7:58 AM CDT): Pre-diabetes is a precursor to Dm. Stressed importance of working on diet (decrease your simple sugars and one carbohydrate with each meal) and increase you exercise to achieve weight loss and this will help prevent you from progressing to diabetes. This A1c was back into normal range. Continue to monitor Assessment & Plan (05/23/2019 2:40 PM SERVICE CREW SUPERVISOR): Pre-diabetes is a precursor to Dm. Stressed importance of working on diet (decrease your simple sugars and one carbohydrate with each meal) and increase you exercise to achieve weight loss and this will help prevent you from progressing to diabetes. Gastroesophageal reflux disease without esophagi tis 05/23/2019 Assessment & Plan (06/07/2024 2:14 PM SERVICE CREW SUPERVISOR): Continue PPI Assessment & Plan (10/11/2023 11:18 PM CDT): Continue PPI p.r.n. Assessment & Plan (06/10/2023 9:56 AM SERVICE CREW SUPERVISOR): Continue PPI. If symptoms persist may consider increasing to b.i.d. Assessment & Plan (12/22/2022 6:53 PM CDT): Stable with PPI Assessment & Plan (06/30/2022 8:08 PM SERVICE CREW SUPERVISOR): Continue PPI p.r.n. Assessment & Plan (03/31/2022 10:08 AM CDT): Continue PPI Assessment & Plan (09/25/2021 8:08 AM CDT): Stable with PPI Assessment & Plan (07/05/2021 12:16 PM SERVICE CREW SUPERVISOR): Continue PPI Assessment & Plan (02/13/2021 10:30 AM CDT): Continue PPI Assessment & Plan (09/05/2020 8:53 PM SERVICE CREW SUPERVISOR): On PPI Assessment & Plan (02/29/2020 7:58 AM CDT): Continue PPI Assessment & Plan (05/23/2019 2:42 PM SERVICE CREW SUPERVISOR): Break thru sxs if she eats certain foods. Encouraged to restart PPI daily and will monitor for resolution of sxs and then taper back down. Mixed hyperlipidemia 10/19/2018 Assessment & Plan (06/07/2024 2:15 PM SERVICE CREW SUPERVISOR): Encouraged patient to follow low fat/low chol diet like the Mediterranean diet. Increase good fats in the diet. Increase exercise. Monitor labs as needed. Continue Crestor every other day. This is the dose she can tolerate to avoid leg cramps but still get the great benefit which is evident by her lipid profile Assessment & Plan (10/11/2023 11:20 PM CDT): Encouraged patient to follow low fat/low chol diet like the Mediterranean diet. Increase good fats in the diet. Increase exercise. Monitor labs as needed. Continue Crestor 5 Assessment & Plan (06/10/2023 9:57 AM SERVICE CREW SUPERVISOR): Encouraged patient to follow low fat/low chol diet like the Mediterranean diet. Increase good fats in the diet. Increase exercise. Monitor labs as needed. Continue with Crestor 5 Assessment & Plan (12/22/2022 6:50 PM CDT): Encouraged patient to follow low fat/low chol diet like the Mediterranean diet. Increase good fats in the diet. Increase exercise. Monitor labs as needed. Tolerating Crestor 3 times a week continue with current plan Assessment & Plan (06/30/2022 8:03 PM SERVICE CREW SUPERVISOR): Encouraged patient to follow low fat/low chol diet like the Mediterranean diet. Increase good fats in the diet. Increase exercise. Monitor labs as needed. Taking Crestor every other day tolerating the cramps without problems. Will continue with this dose. Levels are well controlled. Assessment & Plan (03/31/2022 10:07 AM CDT): Encouraged patient to follow low fat/low chol diet like the Mediterranean diet. Increase good fats in the diet. Increase exercise. Monitor labs as needed. Willing to try the every other day Crestor. Continue with the Co Q10. If cramping in the legs continues mood consider Livalo. Assessment & Plan (09/25/2021 8:06 AM CDT): Encouraged patient to follow low fat/low chol diet like the Mediterranean diet. Increase good fats in the diet. Increase exercise. Monitor labs as needed. On Crestor 5 mg every other day. Lipid panel is stable and she is on Co Q10. Will see if she responds or restless leg medicine and if this decreases her leg c ramps and follow-up pending those results. Assessment & Plan (07/05/2021 12:14 PM SERVICE CREW SUPERVISOR): Encouraged patient to follow fat/low chol diet like the Mediterranean diet. Increase good fats in the diet. Increase exercise. Monitor labs as needed. She is able to tolerate her Crestor every other day without having leg cramps. She is also on Co Q10. Will continue as let patient know some is better than none with the aspect of statin an cardiovascular prevention Assessment & Plan (02/13/2021 10:32 AM CDT): This is a significant, separately identifiable problem that was evaluated and managed on the same day as the wellness exam LDL is still elevated. Encouraged patient to follow fat/low chol diet like the Mediterranean diet. Increase good fats in the diet. Increase exercise. Start Crestor and CoQ10. She had trouble in the past with simvastatin so will try this combination. Advised even if tolerated every other day is better than none. Recheck labs in 4 months. Assessment & Plan (09/05/2020 8:54 PM SERVICE CREW SUPERVISOR): Encouraged patient to follow fat/low chol diet like the Mediterranean diet. Increase good fats in the diet. Increase exercise. Monitor labs as needed. Assessment & Plan (02/29/2020 7:58 AM CDT): Encouraged patient to continue low fat/low chol diet. Continue exercise. Increase good fats in the diet. Monitor labs as needed. Diet controlled Assessment & Plan (05/23/2019 2:35 PM SERVICE CREW SUPERVISOR): Encouraged patient to continue low fat/low chol diet. Continue exercise. Increase good fats in the diet. Monitor labs as needed. CARLEE on CPAP 10/19/2018 Overview (10/19/2018): Dr. Aldana at [place] Assessment & Plan (06/07/2024 2:13 PM SERVICE CREW SUPERVISOR): Continue per Dr. Aldana at [facility] using her CPAP nightly as instructed Continue with Advair and albuterol p.r.n.. Using Flonase for allergies along with an antihistamine Assessment & Plan (10/11/2023 11:17 PM CDT): Continue with CPAP. Managed by [facility] Assessment & Plan (06/10/2023 9:57 AM SERVICE CREW SUPERVISOR): Managed by Dr. Grace at [place]. Continue with CPAP Assessment & Plan (12/22/2022 6:49 PM CDT): Continue per Dr. Aldana at [facility]. Continue with CPAP Assessment & Plan (06/30/2022 8:03 PM SERVICE CREW SUPERVISOR): Continue CPAP Assessment & Plan (03/31/2022 10:07 AM CDT): Continue CPAP Assessment & Plan (09/25/2021 8:07 AM CDT): Continue per Dr. Grace at [facility]. Has only needed supplies in using nightly as instructed. Assessment & Plan (07/05/2021 12:15 PM SERVICE CREW SUPERVISOR): Continue per at [facility] states she is using nightly Assessment & Plan (02/13/2021 10:32 AM CDT): Using nightly. Continue per Dr. Grace at [facility] Assessment & Plan (09/05/2020 8:53 PM SERVICE CREW SUPERVISOR): Continue CPAP Assessment & Plan (02/29/2020 7:57 AM CDT): Managed by Dr. Grace at [facility] Has all needed equipment Assessment & Plan (09/11/2019 7:27 PM CDT): Recommend f.u with pulmonology to see if settings are correct. Assessment & Plan (05/23/2019 2:35 PM SERVICE CREW SUPERVISOR): Stable with CPAP. Using nightly. Encouraged to bring to hospital for procedure Mild intermittent asthma without complication Overview (10/19/2018): Dr. Aldana at [place] Assessment & Plan (06/07/2024 2:13 PM SERVICE CREW SUPERVISOR): Continue per Dr. Aldana at [facility] using her CPAP nightly as instructed Continue with Advair and albuterol p.r.n.. Using Flonase for allergies along with an antihistamine Assessment & Plan (09/25/2021 8:07 AM CDT): Patient noted a little more flare with the seasonal change. She is stable with her Advair and albuterol. Still using the albuterol 1 time a day. If her symptoms increase or start using albuterol more than 2 to 3 times a day she needs to follow up with Dr. Grace pulmonology at [place] Assessment & Plan (07/05/2021 12:15 PM SERVICE CREW SUPERVISOR): Continue per at [facility] states she is using nightly Assessment & Plan (02/13/2021 10:31 AM CDT): Continue per Dr. Aldana at [facility] Assessment & Plan (09/05/2020 8:53 PM SERVICE CREW SUPERVISOR): Stable with advair/prn albuterol Managed by Dr. Arzate Assessment & Plan (02/29/2020 7:57 AM CDT): Stable without medication at this point. Has Advair to start if seasonal allergies kick it up Assessment & Plan (05/23/2019 2:34 PM SERVICE CREW SUPERVISOR): Currently stable with Advair. Hasn't needed rescue Assessment & Plan (10/31/2018 11:29 PM CDT): Continue Advair and treat allergies. Moderate episode of recurrent major depressive d isorder 10/19/2018 Assessment & Plan (06/07/2024 2:14 PM SERVICE CREW SUPERVISOR): Symptoms are stable with Lexapro 20 Assessment & Plan (10/11/2023 11:18 PM CDT): Continue Lexapro 20 Assessment & Plan (06/10/2023 9:57 AM SERVICE CREW SUPERVISOR): Depression symptoms seem to be stable with the Lexapro 20 mg. She is had increased fatigue but think this is actually situational with increased activities. Will continue to monitor closely Assessment & Plan (12/22/2022 6:50 PM CDT): Stable with Lexapro. Assessment & Plan (06/30/2022 8:03 PM SERVICE CREW SUPERVISOR): Continue Lexapro 10 S symptoms are stable Assessment & Plan (03/31/2022 10:07 AM CDT): Will increase the Lexapro 20 mg disease helps with her apathy. She may take 2 of the 10 mg capsules to the ER gone she will fill on the 20 mg capsules to take 1 daily. She is making this plan. Follow-up in June for Medicare wellness follow-up on the dose increase. Assessment & Plan (09/25/2021 8:07 AM CDT): Stable with Lexapro 10 Assessment & Plan (07/05/2021 12:16 PM SERVICE CREW SUPERVISOR): Stable with Lexapro 10 mg Assessment & Plan (02/13/2021 10:30 AM CDT): Continue lexapro 10 Assessment & Plan (09/05/2020 8:54 PM SERVICE CREW SUPERVISOR): Stable with Lexapro 10mg Assessment & Plan (02/29/2020 7:58 AM CDT): Stable with lexapro Assessment & Plan (05/23/2019 2:40 PM SERVICE CREW SUPERVISOR): Stable with lexapro Current Treatment and Therapy Plans No current plan information found. Past Treatment and Therapy Plans No past plan information found. Radiation Treatments * Course [id number]/24/2021 - 09/24/2021 Treatment Period Energy Fraction Dose Fractions Total Dose Plans Planned VR R BREAST 09/24/2021 - 09/24/2021 2,000 2,000 Reference Points Delivered [id number]_2000 09/24/2021 - 09/24/2021 2,000 Resolved Problems Problem Noted Date Diagnosed Date Resolved Date Colon cancer screening 06/10/202310/05 Assessment & Plan (06/10/2023 9:58 AM SERVICE CREW SUPERVISOR): Cologuard will be due in September. Order placed to kick out at that time Medicare annual wellness visit, subsequent 06/10/2023 10/06/2023 Assessment & Plan (06/10/2023 9:58 AM SERVICE CREW SUPERVISOR): Encouraged healthy lifestyle, good nutrition and exercise. Encouraged Calcium and Vitamin D and weight bearing exercise for bone health. Reviewed immunizations. Reviewed age appropirate screenings. Medicare Wellness Documentation is completed within the chart BMI 32.0-32.9,adult 12/22/2022 12/23/19 23 BMI 32.0-32.9,adult 12/22/2022 12/23/19 23 Assessment & Plan (12/22/2022 9:13 AM CDT): Discussed the patient's BMI. The BMI is above average. BMI management plan is completed. BMI Follow-up includes: nutrition counseling, exercise counseling and education provided. BMI 32.0-32.9,adult 12/22/2022 06/10/20 23 Assessment & Plan (12/22/2022 9:15 AM CDT): Discussed the patient's BMI. The BMI is above average. BMI management plan is completed. BMI Follow-up includes: nutrition counseling, exercise counseling and education provided. Annual physical exam 12/20/2022 024 Assessment & Plan (10/11/2023 11:20 PM CDT): Encouraged healthy lifestyle, good nutrition and exercise. Encouraged Calcium and Vitamin D and weight bearing exercise for bone health. Reviewed immunizations Reviewed age appropirate screenings. Assessment & Plan (12/22/2022 6:54 PM CDT): Encouraged healthy lifestyle, good nutrition and exercise. Encouraged Calcium and Vitamin D and weight bearing exercise for bone health. Reviewed immunizations Reviewed age appropirate screenings. Obesity (BMI 30-39.9) 11/20/20222022 Assessment & Plan (11/20/2022 9:07 AM CDT): Discussed the patient's BMI. The BMI is above average. BMI management plan is completed. BMI Follow-up includes: nutrition counseling, exercise counseling and education provided. BMI 32.0-32.9,adult 11/20/2022 12/23/19 Assessment & Plan (11/20/2022 9:07 AM CDT): Discussed the patient's BMI. The BMI is above average. BMI management plan is completed. BMI Follow-up includes: nutrition counseling, exercise counseling and education provided. Pain of left hip 11/20/2022 11/20/2022 Medicare annual wellness visit, subsequent 06/23/2022 11/20/2022 Assessment & Plan (06/30/2022 8:07 PM SERVICE CREW SUPERVISOR): Encouraged healthy lifestyle, good nutrition and exercise. Encouraged Calcium and Vitamin D and weight bearing exercise for bone health. Reviewed immunizations. Reviewed age appropirate screenings. Medicare Wellness Documentation is completed within the chart Needs flu shot 03/31/2022 12/22/2022 Assessment & Plan (03/31/2022 10:08 AM CDT): Flu vaccine updated in the office today Dysuria 03/31/2022 12/22/2022 Assessment & Plan (03/31/2022 10:08 AM CDT): Patient has noticed increased urinary frequency and dysuria. Urinalysis will be checked in the office and sent for culture. Will treat pending those results. Annual physical exam 09/25/2021 022 Assessment & Plan (09/25/2021 8:09 AM CDT): Encouraged healthy lifestyle, good nutrition and exercise. Encouraged Calcium and Vitamin D and weight bearing exercise for bone health. Reviewed immunizations Reviewed age appropirate screenings. Fatigue 07/05/2021 09/25/2021 Assessment & Plan (07/05/2021 12:17 PM SERVICE CREW SUPERVISOR): Probably multifactorial. Check labs and followup to re-evaluate Medicare annual wellness visit, subsequent 07/05/2021 09/25/2021 Assessment & Plan (07/05/2021 12:17 PM SERVICE CREW SUPERVISOR): Insert Medicare wellness exam Breast cancer screening by mammogram 07/05/2021 07/05/2021 Abnormal mammogram 05/26/2021 Annual physical exam 02/13/2021 021 Assessment & Plan (02/13/2021 10:32 AM CDT): Encouraged healthy lifestyle, good nutrition and exercise. Encouraged Calcium and Vitamin D and weight bearing exercise for bone health. Reviewed immunizations Reviewed age appropirate screenings. Breast cancer screening by mammogram 02/13/2021 07/05/2021 Assessment & Plan (02/13/2021 10:32 AM CDT): Mammogram order provided BMI 33.0-33.9,adult 09/06/2020 11/21/19 23 Assessment & Plan (06/30/2022 8:08 PM SERVICE CREW SUPERVISOR): Discussed the patient's BMI. The BMI is above average. BMI management plan is completed. BMI Follow-up includes: nutrition counseling, exercise counseling and education provided. Assessment & Plan (03/31/2022 8:57 AM CDT): Discussed the patient's BMI. The BMI is above average. BMI management plan is completed. BMI Follow-up includes: nutrition counseling, exercise counseling and education provided. Assessment & Plan (09/25/2021 8:08 AM CDT): Obesity is unchanged. Discussed the patient's BMI. The BMI is above average. BMI management plan is completed. BMI Follow-up includes: nutrition counseling, exercise counseling and education provided. Assessment & Plan (09/06/2020 7:28 AM SERVICE CREW SUPERVISOR): Obesity is unchanged. Discussed the patient's BMI. The BMI is above average. BMI management plan is completed. BMI Follow-up includes: nutrition counseling, exercise counseling and education provided. Obesity (BMI 30-39.9) 09/06/20202022 Assessment & Plan (06/30/2022 8:09 PM SERVICE CREW SUPERVISOR): Discussed the patient's BMI. The BMI is above average. BMI management plan is completed. BMI Follow-up includes: nutrition counseling, exercise counseling and education provided. Assessment & Plan (03/31/2022 8:58 AM CDT): Discussed the patient's BMI. The BMI is above average. BMI management plan is completed. BMI Follow-up includes: nutrition counseling, exercise counseling and education provided. Assessment & Plan (09/25/2021 8:08 AM CDT): Obesity is unchanged. Discussed the patient's BMI. The BMI is above average. BMI management plan is completed. BMI Follow-up includes: nutrition counseling, exercise counseling and education provided. Assessment & Plan (06/19/2021 7:28 AM SERVICE CREW SUPERVISOR): Obesity is unchanged. Discussed the patient's BMI. The BMI is above average. BMI management plan is completed. BMI Follow-up includes: nutrition counseling, exercise counseling and education provided. Assessment & Plan (02/13/2021 7:09 AM CDT): Obesity is unchanged. Discussed the patient's BMI. The BMI is above average. BMI management plan is completed. BMI Follow-up includes: nutrition counseling, exercise counseling and education provided. Assessment & Plan (09/06/2020 7:28 AM SERVICE CREW SUPERVISOR): Obesity is unchanged. Discussed the patient's BMI. The BMI is above average. BMI management plan is completed. BMI Follow-up includes: nutrition counseling, exercise counseling and education provided. BMI 33.0-33.9,adult 02/29/2020 09/07/19 Assessment & Plan (02/29/2020 7:21 AM CDT): Obesity is unchanged. Discussed the patient's BMI. The BMI is above average. BMI management plan is completed. BMI Follow-up includes: nutrition counseling, exercise counseling and education provided. Medicare annual wellness visit, subsequent 02/28/2020 09/05/2020 Assessment & Plan (02/28/2020 8:10 PM CDT): Encouraged healthy lifestyle, good nutrition and exercise. Encouraged Calcium and Vitamin D and weight bearing exercise for bone health. Reviewed immunizations. Reviewed age appropirate screenings. Medicare Wellness Documentation is completed within the chart Pain of left calf 09/11/2019 02/28/2020 Assessment & Plan (09/11/2019 7:37 PM CDT): Left calf pain increased with compression. STAT Venous doppler as CALL and hold to rule out DVT. Pt sent directly to hospital for immediate imaging. Call from the Vascular lab reveled Doppler was Negative for DVT. Patient was immediately notified. She is to get labs as ordered. Will await results of labs and encouraged to also f.u with pulmonary to make sure CPAP settings are correct. Abnormal EKG 06/01/2019 02/28/2020 Obesity (BMI 30-39.9) 06/01/20192020 Assessment & Plan (02/29/2020 7:58 AM CDT): Obesity is unchanged. Discussed the patient's BMI. The BMI is above average. BMI management plan is completed. BMI Follow-up includes: nutrition counseling, exercise counseling and education provided. Assessment & Plan (09/11/2019 7:28 PM CDT): Obesity is unchanged. Discussed the patient's BMI. The BMI is above average. BMI management plan is completed. BMI Follow-up includes: nutrition counseling, exercise counseling and education provided. BMI 31.0-31.9,adult 05/23/2019 09/26/19 22 Assessment & Plan (06/19/2021 7:28 AM SERVICE CREW SUPERVISOR): Obesity is unchanged. Discussed the patient's BMI. The BMI is above average. BMI management plan is completed. BMI Follow-up includes: nutrition counseling, exercise counseling and education provided. Assessment & Plan (09/11/2019 7:28 PM CDT): Obesity is unchanged. Discussed the patient's BMI. The BMI is above average. BMI management plan is completed. BMI Follow-up includes: nutrition counseling, exercise counseling and education provided. Assessment & Plan (05/23/2019 1:30 PM SERVICE CREW SUPERVISOR): Obesity is unchanged. Discussed the patient's BMI. The BMI is above average. BMI management plan is completed. BMI Follow-up includes: nutrition counseling, exercise counseling and education provided. Encounter for pre-operative examination 05/23/2019 02/28/2020 Assessment & Plan (05/23/2019 2:40 PM SERVICE CREW SUPERVISOR): Discussed with patient preoperative exam and EKG findings. Discussed risk of a knee surgery/anesthesia. Discussed Cardiac risk factors and that it is difficult to fully assess her cardiac capacity due to the knee limiting her activity. Recommend referral to Cardiology for probable stress/cardiac clearance. Pt is in agreement. Referral made with hopes to have done without delay to the surgery date. BMI 30.0-30.9,adult 10/19/2018 05/23/20 19 Assessment & Plan (05/23/2019 1:30 PM SERVICE CREW SUPERVISOR): Obesity is unchanged. Discussed the patient's BMI. The BMI is above average. BMI management plan is completed. BMI Follow-up includes: nutrition counseling, exercise counseling and education provided. Assessment & Plan (10/19/2018 12:03 PM CDT): BMI Follow-up includes: Discussed diet and exercising counseling. Acute maxillary sinusitis 10/19/2018 Assessment & Plan (10/31/2018 11:28 PM CDT): Start antibiotic, antihistamine, Mucinex and Steroid nasal spray. Push fluids. Rest. Supportive care. If sxs worsen or don\'t improve, pt is to followup in the office. Non-recurrent acute serous o titis media of right ear 10/19/2018 02/28/2020 Assessment & Plan (10/31/2018 11:28 PM CDT): Start antibiotic, antihistamine, Mucinex and Steroid nasal spray. Push fluids. Rest. Supportive care. If sxs worsen or don\'t improve, pt is to followup in the office.
--- OUTSIDE RECORDS SUMMARY | 2025-02-21 17:56 | XMS_ITS | Clinical Summary ---
Author Organization [facility] Address [address] [place] [id number] Care Team Providers Care Corporate Compliance Director Name Role Phone Jer Wahl MD Primary Care Provider [phone] Social History Tobacco Use Types Packs/Day Years Used Date Smoking Tobacco: Never Assessed Comments Unknown Sex and Gender Information Value Date Recorded Sex Assigned at Not on file Legal Sex Female 4:19 PM CDT Gender Identity Not on file Sexual Orientation Not on file Last Filed Vital Signs Vital Sign Reading Time Taken Comments Blood Pressure - - Pulse - - Temperature - - Respiratory Rate - - Oxygen Saturation - - Inhaled Oxygen Concentration - - Weight 64.9 kg (143 lb) 10/24/2013 3:37 PM CDT Height 152.4 cm (5') 10/24/2013 3:37 PM CDT Body Mass Index 27.93 10/24/2013 3:37 PM CDT Plan of Treatment Health Maintenance Due Date Last Done Comments Hepatitis C 1968 DTaP, Tdap and Td Vaccines ( 1 - Tdap) 1967 Zoster Vaccines (1 of 2) 1998 Annual Medicare Wellness Visit 2013 Dexa Scan (General) 2013 RSV Immunization or 60+ Years (1 - 1-dose 75+ series) 2023 COVID-19 Vaccine ( - 2023-2 5 season) 2024 07/15/2021, 09/21/2020, 08/31/2020 Pneumococcal Vaccine: 50+ Years Completed 05/06/2019, 05/03/2018 Meningococcal B Vaccine Aged Out No l onger eligible based on patient's age to complete this topic Meningococcal Vaccine Aged Out No jorge vickie eligible based on patient's age to complete this topic RSV Immunizations Under 20 Months Aged Out No longer eligible b ased on patient's age to complete this topic Insurance [employer] Care Teams Corporate Compliance Director Relationship Specialty Start Date End Date Jer Wahl MD [address] [place] [address] PCP - General 10/24/13
--- OUTSIDE RECORDS SUMMARY | 2025-02-21 17:56 | XMS_ITS | Clinical Summary ---
Author Organization [facility] [address] [facility] Address [address] [place] [address] Care Team Providers Care Servicenow Administrator Name Role Phone Mesha Kilgore Primary Care Provider [phone] Stan Mcconnell MD Unavailable [phone] Sylvia Gunn MD Unavailable [phone] Lorene Palma MD PhD Unavailable [phone] Allergies Active Allergy Reactions Criticality Noted Date Comments Cephalexin Hives Medium 11/15/2023 Codeine Nausea & Vomiting Low Nitrofurantoin Hives High 11/15/2023 Penicillins Swelling Medium Medications fluticasone (FLONASE) 50 mcg/actuation nasal spray Administer 1 spray into each nostril daily 16 g 3 9 Active ubidecarenone (coenzyme Q10) 100 mg tablet Take 100 mg by mouth every other day Active cholecalciferol (VITAMIN D-3) 25 mcg (1,000 unit) tablet Take 1 tablet (1,000 Units total) by mouth time stamp assembler before breakfast Active Advair HFA 115-21 mcg/actuation inhaler INHALE 2 PUFFS BY MOUTH TWICE DAILY FOR 30 DAYS FOR ASTHMA AND RINSE MOUTH AND SPIT AFTER USE 2 Active calcium carb-D3-mag ox-zinc ox 333 mg-133 unit -133 mg-5 mg tablet Take by mouth A ctive vitamin E (AQUASOL E) 400 unit capsule Take 2 capsules (800 Units total) by mouth daily Active albuterol HFA (PROVENTIL HFA,VENTOLIN HFA,PROAIR HFA) 90 mcg/actuation inhaler INHALE 1 TO 2 PUFFS BY MOUTH EVERY 4 TO 6 HOURS NEEDED FOR SHORTNESS OF BREATH FOR WHEEZING 2 Active omeprazole (PriLOSEC) 40 mg capsule Take 1 capsule by mouth once daily 90 capsule 2 4 Active cyanocobalamin (Vitamin B-12) 50 mcg tabletIndications: Prevention of Vitamin B12 Deficiency Take 1 tablet (50 mcg total) by mouth daily Active escitalopram (LEXAPRO) 20 mg tablet Take 1 tablet by mouth once daily 90 tablet 5 Active tamoxifen (NOLVADEX) 20 mg tabletIndications: Ductal Carcinoma in Situ of Breast Take 1 tablet (20 mg total) by mouth daily 90 tablet 3 5 Active rosuvastatin (CRESTOR) 5 mg tabletIndications: Mixed hyperlipidemia Take 1 tablet (5 mg total) by mouth 3 (three) times a week 43 tablet 1 5 Active Active Problems Problem Noted Date Diagnosed Date Medicare annual wellness visit, subsequent 06/07 Assessment & Plan (06/07/2024 2:15 PM CONVEYOR ATTENDANT): Encouraged healthy lifestyle, good nutrition and exercise. Encouraged Calcium and Vitamin D and weight bearing exercise for bone health. Reviewed immunizations. Reviewed age appropirate screenings. Medicare Wellness Documentation is completed within the chart Radiotherapy follow-up examination 10/29/2023 BMI 31.0-31.9,adult 06/10/2023 Assessment & Plan (06/07/2024 8:44 AM CONVEYOR ATTENDANT): BMI Follow-up includes: Discussed diet and exercising counseling. Assessment & Plan (10/11/2023 11:21 PM CDT): Discussed the patient's BMI. The BMI is above average. BMI management plan is completed. BMI Follow-up includes: nutrition counseling, exercise counseling and education provided. Assessment & Plan (06/10/2023 8:38 AM CONVEYOR ATTENDANT): Discussed the patient's BMI. The BMI is [...] provided. Assessment & Plan (06/07/2024 8:44 AM CONVEYOR ATTENDANT): BMI Follow-up includes: Discussed diet and exercising counseling. Assessment & Plan (10/11/2023 11:20 PM CDT): Discussed the patient's BMI. The BMI is above average. BMI management plan is completed. BMI Follow-up includes: nutrition counseling, exercise counseling and education provided. Assessment & Plan (06/10/2023 8:38 AM CONVEYOR ATTENDANT): Discussed the patient's BMI. The BMI is above average. BMI management plan is completed. BMI Follow-up includes: nutrition counseling, exercise counseling and education provided. Assessment & Plan (12/22/2022 9:14 AM CDT): Discussed the patient's BMI. The BMI is above average. BMI management plan is completed. BMI Follow-up includes: nutrition counseling, exercise counseling and education provided. Menopause 12/22/2022 Assessment & Plan (06/10/2023 9:57 AM CONVEYOR ATTENDANT): Check DEXA Assessment & Plan (12/22/2022 6:55 PM CDT): Check DEXA Fatigue 12/22/2022 Assessment & Plan (06/07/2024 2:15 PM CONVEYOR ATTENDANT): Probably multifactorial. Check labs and followup to re-evaluate Assessment & Plan (10/11/2023 11:21 PM CDT): Probably multifactorial. Check labs and followup to re-evaluate Assessment & Plan (06/10/2023 9:58 AM CONVEYOR ATTENDANT): Probably multifactorial. Check labs and followup to [...] 06/23 Assessment & Plan (06/07/2024 2:15 PM CONVEYOR ATTENDANT): Patient tried oxybutynin for her symptoms and [...] dosing. Assessment & Plan (06/30/2022 8:05 PM CONVEYOR ATTENDANT): This is a significant, separately identifiable problem [...] breast 10/18/2021 Personal history of irradiation 10/18/2021 [facility] (current) use of s elective estrogen receptor [...] Staging:Pathologic:Stage 0(pTis (DCIS), cN0, cM0, G2, ER+, MS: Not Assessed, HER2: Not Assessed) - Signed by Lorene Palma MD PhD on 08/30/2021 Assessment & Plan (06/07/2024 2:14 PM CONVEYOR ATTENDANT): Continue per Oncology. She is on approximately the 3rd year of tamoxifen out of 5. Tolerating well Assessment & Plan (10/11/2023 11:18 PM CDT): Continue per Dr. Angeles. She is on the 2nd year of 5 with her tamoxifen. Assessment & Plan (06/10/2023 9:56 AM CONVEYOR ATTENDANT): Patient with DCIS right breast. Continue per at [facility]. Continue with tamoxifen. Assessment & Plan (12/22/2022 6:53 PM CDT): Patient with DCIS breast Continuing with tamoxifen and tolerating well Assessment & Plan (09/25/2021 8:09 AM CDT): Continue per Dr. Gunn. Just finished a course of radiation and will be starting tamoxifen in the next few weeks. Assessment & Plan (07/05/2021 12:14 PM CONVEYOR ATTENDANT): 05/2021 - Dr. Angeles continue per her [...] 09/11/2019 Assessment & Plan (07/05/2021 12:16 PM CONVEYOR ATTENDANT): Continue to monitor electrolytes. Seems to be [...] 05/23/2019 Assessment & Plan (06/07/2024 2:15 PM CONVEYOR ATTENDANT): Pre-diabetes/hyperglycemia is a precursor to Dm. Stressed [...] diabetes. Assessment & Plan (06/10/2023 9:56 AM CONVEYOR ATTENDANT): Pre-diabetes/hyperglycemia is a precursor to Dm. Stressed [...] diabetes. Assessment & Plan (06/30/2022 8:03 PM CONVEYOR ATTENDANT): Pre-diabetes/hyperglycemia is a precursor to Dm. Stressed [...] diabetes. Assessment & Plan (07/05/2021 12:16 PM CONVEYOR ATTENDANT): Pre-diabetes/hyperglycemia is a precursor to Dm. Stressed importance of working on diet (decrease your simple sugars and one carbohydrate with each meal) and increase you exercise to achieve weight loss and this will help prevent you from progressing to diabetes. Assessment & Plan (09/05/2020 8:54 PM CONVEYOR ATTENDANT): Pre-diabetes is a precursor to Dm. Stressed [...] monitor Assessment & Plan (05/23/2019 2:40 PM CONVEYOR ATTENDANT): Pre-diabetes is a precursor to Dm. Stressed importance of working on diet (decrease your simple sugars and one carbohydrate with each meal) and increase you exercise to achieve weight loss and this will help prevent you from progressing to diabetes. Gastroesophageal reflux disease without esophagi tis 05/23/2019 Assessment & Plan (06/07/2024 2:14 PM CONVEYOR ATTENDANT): Continue PPI Assessment & Plan (10/11/2023 11:18 PM CDT): Continue PPI p.r.n. Assessment & Plan (06/10/2023 9:56 AM CONVEYOR ATTENDANT): Continue PPI. If symptoms persist may consider increasing to b.i.d. Assessment & Plan (12/22/2022 6:53 PM CDT): Stable with PPI Assessment & Plan (06/30/2022 8:08 PM CONVEYOR ATTENDANT): Continue PPI p.r.n. Assessment & Plan (03/31/2022 10:08 AM CDT): Continue PPI Assessment & Plan (09/25/2021 8:08 AM CDT): Stable with PPI Assessment & Plan (07/05/2021 12:16 PM CONVEYOR ATTENDANT): Continue PPI Assessment & Plan (02/13/2021 10:30 AM CDT): Continue PPI Assessment & Plan (09/05/2020 8:53 PM CONVEYOR ATTENDANT): On PPI Assessment & Plan (02/29/2020 7:58 AM CDT): Continue PPI Assessment & Plan (05/23/2019 2:42 PM CONVEYOR ATTENDANT): Break thru sxs if she eats certain foods. Encouraged to restart PPI daily and will monitor for resolution of sxs and then taper back down. Mixed hyperlipidemia 10/19/2018 Assessment & Plan (06/07/2024 2:15 PM CONVEYOR ATTENDANT): Encouraged patient to follow low fat/low chol [...] 5 Assessment & Plan (06/10/2023 9:57 AM CONVEYOR ATTENDANT): Encouraged patient to follow low fat/low chol [...] plan Assessment & Plan (06/30/2022 8:03 PM CONVEYOR ATTENDANT): Encouraged patient to follow low fat/low chol [...] results. Assessment & Plan (07/05/2021 12:14 PM CONVEYOR ATTENDANT): Encouraged patient to follow fat/low chol diet [...] months. Assessment & Plan (09/05/2020 8:54 PM CONVEYOR ATTENDANT): Encouraged patient to follow fat/low chol diet like the Mediterranean diet. Increase good fats in the diet. Increase exercise. Monitor labs as needed. Assessment & Plan (02/29/2020 7:58 AM CDT): Encouraged patient to continue low fat/low chol diet. Continue exercise. Increase good fats in the diet. Monitor labs as needed. Diet controlled Assessment & Plan (05/23/2019 2:35 PM CONVEYOR ATTENDANT): Encouraged patient to continue low fat/low chol diet. Continue exercise. Increase good fats in the diet. Monitor labs as needed. CARLEE on CPAP 10/19/2018 Overview (10/19/2018): Dr. Aldana at [facility] Assessment & Plan (06/07/2024 2:13 PM CONVEYOR ATTENDANT): Continue per Dr. Aldana at [facility] using her CPAP nightly as instructed Continue with Advair and albuterol p.r.n.. Using Flonase for allergies along with an antihistamine Assessment & Plan (10/11/2023 11:17 PM CDT): Continue with CPAP. Managed by [facility] Assessment & Plan (06/10/2023 9:57 AM CONVEYOR ATTENDANT): Managed by Dr. Grace at [facility]. Continue with CPAP Assessment & Plan (12/22/2022 6:49 PM CDT): Continue per Dr. Aldana at [facility]. Continue with CPAP Assessment & Plan (06/30/2022 8:03 PM CONVEYOR ATTENDANT): Continue CPAP Assessment & Plan (03/31/2022 10:07 AM CDT): Continue CPAP Assessment & Plan (09/25/2021 8:07 AM CDT): Continue per Dr. Grace at [facility]. Has only needed supplies in using nightly as instructed. Assessment & Plan (07/05/2021 12:15 PM CONVEYOR ATTENDANT): Continue per at [facility] states she is using nightly Assessment & Plan (02/13/2021 10:32 AM CDT): Using nightly. Continue per Dr. Grace at [facility] Assessment & Plan (09/05/2020 8:53 PM CONVEYOR ATTENDANT): Continue CPAP Assessment & Plan (02/29/2020 7:57 AM CDT): Managed by Dr. Grace at [facility] Has all needed equipment Assessment & Plan (09/11/2019 7:27 PM CDT): Recommend f.u with pulmonology to see if settings are correct. Assessment & Plan (05/23/2019 2:35 PM CONVEYOR ATTENDANT): Stable with CPAP. Using nightly. Encouraged to bring to hospital for procedure Mild intermittent asthma without complication Overview (10/19/2018): Dr. Aldana at [facility] Assessment & Plan (06/07/2024 2:13 PM CONVEYOR ATTENDANT): Continue per Dr. Aldana at [facility] using her CPAP nightly as [...] follow up with Dr. Grace pulmonology at [facility] Assessment & Plan (07/05/2021 12:15 PM CONVEYOR ATTENDANT): Continue per at [facility] states she is using nightly Assessment & Plan (02/13/2021 10:31 AM CDT): Continue per Dr. Aldana at [facility] Assessment & Plan (09/05/2020 8:53 PM CONVEYOR ATTENDANT): Stable with advair/prn albuterol Managed by Dr. Arzate Assessment & Plan (02/29/2020 7:57 AM CDT): Stable without medication at this point. Has Advair to start if seasonal allergies kick it up Assessment & Plan (05/23/2019 2:34 PM CONVEYOR ATTENDANT): Currently stable with Advair. Hasn't needed rescue Assessment & Plan (10/31/2018 11:29 PM CDT): Continue Advair and treat allergies. Moderate episode of recurrent major depressive d isorder 10/19/2018 Assessment & Plan (06/07/2024 2:14 PM CONVEYOR ATTENDANT): Symptoms are stable with Lexapro 20 Assessment & Plan (10/11/2023 11:18 PM CDT): Continue Lexapro 20 Assessment & Plan (06/10/2023 9:57 AM CONVEYOR ATTENDANT): Depression symptoms seem to be stable with the Lexapro 20 mg. She is had increased fatigue but think this is actually situational with increased activities. Will continue to monitor closely Assessment & Plan (12/22/2022 6:50 PM CDT): Stable with Lexapro. Assessment & Plan (06/30/2022 8:03 PM CONVEYOR ATTENDANT): Continue Lexapro 10 S symptoms are stable [...] 10 Assessment & Plan (07/05/2021 12:16 PM CONVEYOR ATTENDANT): Stable with Lexapro 10 mg Assessment & Plan (02/13/2021 10:30 AM CDT): Continue lexapro 10 Assessment & Plan (09/05/2020 8:54 PM CONVEYOR ATTENDANT): Stable with Lexapro 10mg Assessment & Plan (02/29/2020 7:58 AM CDT): Stable with lexapro Assessment & Plan (05/23/2019 2:40 PM CONVEYOR ATTENDANT): Stable with lexapro Resolved Problems Problem Noted Date Diagnosed Date Resolved Date Colon cancer screening 06/10/202310/05 Assessment & Plan (06/10/2023 9:58 AM CONVEYOR ATTENDANT): Juan Manuel will be due in September. Order placed to kick out at that time Medicare annual wellness visit, subsequent 06/10/2023 10/06/2023 Assessment & Plan (06/10/2023 9:58 AM CONVEYOR ATTENDANT): Encouraged healthy lifestyle, good nutrition and exercise. Encouraged Calcium and Vitamin D and weight bearing exercise for bone health. Reviewed immunizations. Reviewed age appropirate screenings. Medicare Wellness Documentation is completed within the chart BMI 32.0-32.9,adult 12/22/2022 12/23/19 BMI 32.0-32.9,adult 12/22/2022 12/23/19 Assessment & Plan (12/22/2022 9:13 AM CDT): Discussed the patient's BMI. The BMI is above average. BMI management plan is completed. BMI Follow-up includes: nutrition counseling, exercise counseling and education provided. BMI 32.0-32.9,adult 12/22/2022 06/10/20 Assessment & Plan (12/22/2022 9:15 AM CDT): [...] 11/20/2022 Assessment & Plan (06/30/2022 8:07 PM CONVEYOR ATTENDANT): Encouraged healthy lifestyle, good nutrition and exercise. [...] 09/25/2021 Assessment & Plan (07/05/2021 12:17 PM CONVEYOR ATTENDANT): Probably multifactorial. Check labs and followup to re-evaluate Medicare annual wellness visit, subsequent 07/05/2021 09/25/2021 Assessment & Plan (07/05/2021 12:17 PM CONVEYOR ATTENDANT): Insert Medicare wellness exam Breast cancer screening [...] Mammogram order provided BMI 33.0-33.9,adult 09/06/2020 11/21/19 Assessment & Plan (06/30/2022 8:08 PM CONVEYOR ATTENDANT): Discussed the patient's BMI. The BMI is [...] provided. Assessment & Plan (09/06/2020 7:28 AM CONVEYOR ATTENDANT): Obesity is unchanged. Discussed the patient's BMI. The BMI is above average. BMI management plan is completed. BMI Follow-up includes: nutrition counseling, exercise counseling and education provided. Obesity (BMI 30-39.9) 09/06/20202022 Assessment & Plan (06/30/2022 8:09 PM CONVEYOR ATTENDANT): Discussed the patient's BMI. The BMI is [...] provided. Assessment & Plan (06/19/2021 7:28 AM CONVEYOR ATTENDANT): Obesity is unchanged. Discussed the patient's BMI. [...] provided. Assessment & Plan (09/06/2020 7:28 AM CONVEYOR ATTENDANT): Obesity is unchanged. Discussed the patient's BMI. [...] 22 Assessment & Plan (06/19/2021 7:28 AM CONVEYOR ATTENDANT): Obesity is unchanged. Discussed the patient's BMI. [...] provided. Assessment & Plan (05/23/2019 1:30 PM CONVEYOR ATTENDANT): Obesity is unchanged. Discussed the patient's BMI. The BMI is above average. BMI management plan is completed. BMI Follow-up includes: nutrition counseling, exercise counseling and education provided. Encounter for pre-operative examination 05/23/2019 02/28/2020 Assessment & Plan (05/23/2019 2:40 PM CONVEYOR ATTENDANT): Discussed with patient preoperative exam and EKG [...] 19 Assessment & Plan (05/23/2019 1:30 PM CONVEYOR ATTENDANT): Obesity is unchanged. Discussed the patient's BMI. [...] pt is to followup in the office. Encounters Date Type Department Care Team Description 02/21/2025 5:00 PM CDT Office Visit [facility] at [address] [phone] Ayesha Henderson NP Dizziness (Primary Dx); Intractable headache, unspecified chronicity pattern, unspecified headache type; Fatigue, unspecified type 01/19/2025 Telephone [facility] [address] [facility] [address] [place] [phone] Mesha Kilgore PA Med Refill 01/16/2025 Orders Only [facility] [address] [place] [address] [address] [place] [address] Azul Sanchez RN 12/13/2024 Results Follow-Up [facility] [address] [place] [address] 8 [place] [address] Petrona Santoro NP Screening Mammogram Bilateral W Dion 12/12/2024 11:59 AM CDT - 12/12/2024 11:59 PM CDT Hospital Encounter [facility] - Breast Imaging [address] [place] [address] 8 [place] [address] Ductal carcinoma in situ (DCIS) of right breast; Encounter for screening mammogram for malignant neoplasm of breast Discharge Disposition: Discharge to home or self care 12/12/2024 11:45 AM CDT Office Visit [facility] [address] [place] [address] [address] [place] [address] Petrona Santoor NP Ductal carcinoma in situ (DCIS) of right breast (Primary Dx); History of breast cancer; Encounter for screening mammogram for malignant neoplasm of breast 12/08/2024 8:20 AM CDT Ancillary Procedure [facility] at [address] [id number] Lumbar back pain 12/08/2024 Results Follow-Up [facility] [address] [place] [address] Mesha Kilgore PA XR Spine Lumbar Complete 4 Or More 12/08/[address] [place] [address] Mesha Kilgore PA 12/06/2024 8:30 AM CDT Office Visit [address] [place] [address] Mesha Kilgore PA Annual physical exam (Primary Dx); Pre-diabetes; Mixed hyperlipidemia; Lumbar back pain; CARLEE on CPAP; Mild intermittent asthma without complication; Gastroesophageal reflux disease without esophagitis; Moderate episode of recurrent major depressive disorder (HCC); Ductal carcinoma in situ (DCIS) of right breast; Obesity (BMI 30-39.9); BMI 32.0-32.9,adult 12/06/2024 Orders Only [facility] Floor [address] [place] [address] Petrona Santoro NP Personal history of malignant neoplasm of breast (Primary Dx); Ductal carcinoma in situ (DCIS) of right breast; Encounter for screening mammogram for malignant neoplasm of breast 11/23/2024 Results Follow-Up [address] [place] [phone] Mesha Kilgore PA CBC with auto differential, Comprehensive metabolic panel, Hemoglobin A1c, Additional followed-up results: 4 11/22/2024 9:45 AM CDT Lab [facility] at [address] [phone] BMI 31.0-31.9,adult (Primary Dx); Pre-diabetes; Mixed hyperlipidemia; Fatigue 11/22/2024 9:37 AM CDT - 11/22/2024 11:59 PM CDT Hospital Encounter [address] [address] Fatigue, unspecified type; Mixed hyperlipidemia; Pre-diabetes Discharge Disposition: Discharge to home or self care from Last 3 Months Immunizations Immunization Administration Dates Next Due Influenza, Quadrivalent, Hig h Dose, Preservative Free, Intrr 04/22/2023,03/31/2022,04/16/2021,04/20 Influenza, Trivalent, High D ose, Split, Preservative Free, Intramuscular 04/05/2024,05/06/2019,05/03/2018 Influenza, Unspecified 05/06/2019,05/04/2018 Pfizer SARS-CoV-2 Monovalent Vaccination (12+ Yrs) PURPLE 09/21/2020,08/31/2020 Pneumococcal Conjugate PCV 13 05/03/2018 Pneumococcal Polysaccharide PPV23 05/06/2019 Tdap 11/15/2023 Surgical History Surgery Date Site/Laterality Comments BLADDER SUSPENSION 07/06/2011 - 08/05/2011 KNEE SURGERY 06/05/2019 - 07/05/2019 Left BREAST BIOPSY 06/05/2021 Right DCIS possible invasion JOINT REPLACEMENT Bilateral knees rt 2018December 2019 HYSTERECTOMY 07/06/2011 - 08/05/2011 Partial EYE SURGERY 07/06/2019 - 07/05/2020 bilateral cataracts MASTECTOMY, PARTIAL 07/29/2021 Right BREAST BIOPSY 07/06/2020 - 07/05/2021 Left begnin Medical History Medical History Date Comments Depression Asthma Breast cancer (HCC) PONV (postoperative nausea and vomiting) Sleep apnea Hyperlipidemia History of radiation therapy Family History Medical History Relation Name Comments Leukemia Brother Thyroid disease Daughter 1 Thyroid disease Daughter 2 No Known Problems Daughter 3 Bladder Cancer Father Breast cancer Father's Sister 1 Breast cancer Father's Sister 2 No Known Problems Mother Relation Name Status Comments Brother Alive Daughter 1 Alive Daughter 2 Alive Daughter 3 Alive Father Father's Sister 1 Father's Sister 2 Mother Sister Alive Social History Tobacco Use Types Packs/Day Years Used Date Smoking Tobacco: Never Smokeless Tobacco: Never Tobacco Cessation:Counseling Given: Not Answered Alcohol Use Standard Drinks/Week Comments Yes 0 [...] on file Legal Sex Female 6:55 AM CONVEYOR ATTENDANT Gender Identity Not on file Sexual Orientation Not on file Occupation Industry Job Start Date Job End Date Retired Not on file Not on file Not on file Obstetrics History Para Term AB IAB SAB Ectopic Multiple Livin g Live Births 3 3 3 Date Outcome GA Total Labor Labor/2nd/3rd Weight Sex Type Anes PTL Eliza A1 A5 Name Clin Term Term Term Last Filed Vital Signs Vital Sign Reading Time Taken Comments Blood Pressure 135/84 02/21/2025 4:49 PM CDT Pulse 65 02/21/2025 4:49 PM CDT Temperature 36.8 C (98.3 F) 02/21/2025 4:42 PM CDT Respiratory Rate 18 02/21/2025 4:49 PM CDT Oxygen Saturation 97% 02/21/2025 4:49 PM CDT Inhaled Oxygen Concentration - - Weight 74.4 kg (164 lb) 02/21/2025 4:42 PM CDT Height 157.5 cm (5' 2) 12/12/2024 11:47 AM CDT Body Mass Index 30 12/12/2024 11:47 AM CDT Plan of Treatment Health Maintenance Due Date Last Done Comments Hepatitis B Screening 1968 Zoster Vaccine (1 of 2) 1969 Covid-19 Vaccine (2023-2 5 season) 2024 07/15/2021, 09/21/2020, 08/31/2020, Additional history exists Influenza Vaccine (#1) 2025 , 04/22/2023, 03/31/2022, Additional history exists Depression Screening 12/06/2025 12/06/2024, 06/07/2024, 10/06/2023, Additional history exists Fall Risk Assessment 12/06/2025 12/06/2024, 06/07/2024, 06/10/2023, Additional history exists Well Visit 65+ 12/06/2025 12/06/2024, 12/0 09/2023, 10/06/2023, Additional history exists Osteoporosis Screening-Bone Density Scan 02/09/2026 02/10/2024, 04/17/2020 Colon Cancer Screening-DNA Stool 09/20/2026 09/21/19 24, 09/11/2020 DTaP/Tdap/Td Vaccine (2 - Td or Tdap) 11/14/2033 11/15/2023 Pneumococcal vaccine 65+ Completed 05/06/2019, 04/06 Hepatitis C Screening Completed 01/25/2021 Colon Cancer Screening-FIT Discontinued 09/21/2023, Breast Cancer Screening-Mammogram Discontinued 12/12/2024, 12/11/2023, 02/13/2023, Additional history exists Medical Devices Implanted Type Area Clinical Orthoptist Device Identifier Shelf Expiration Date Model / Serial / Lot Other - See Comments Other - see comments Bilateral : Knee Description:Please refer to Care Everywhere for implant information [employer] [id number] [id number] 18ga 7cm Marker Breast Biopsy - [id number] Implanted:Qty: 1 on 07/25/2021 at [facility] Explanted:07/07 (Quantity not on file) Right: Breast [employer] [id number] 12/03/2024 [id number] Procedures Procedure Name Priority Date/Time Associated Diagnosis Comments ECG 12-LEAD Routine 02/21/2025 5:21 PM CDT Dizziness POCT GLUCOSE Routine 02/21/2025 5:13 PM CDT Dizziness SCREENING MAMMOGRAM BILATERAL W DION Schedule Routine, Read Routine (OP Routine) 12/12/2024 12:14 PM CDT Ductal carcinoma in situ (DCIS) of right breast Encounter for screening mammogram for malignant neoplasm of breast XR SPINE LUMBAR COMPLETE 4 OR MORE VIEWS Schedule Routine, Read Routine (OP Routine) 12/08/2024 8:28 AM CDT Lumbar back pain EGFR Routine 11/22/2024 9:37 AM CDT Mixed hyperlipidemia DIFFERENTIAL AUTO Routine 11/22/2024 9:3 7 AM CDT Fatigue, unspecified type LIPID PANEL Routine 11/22/2024 9:37 AM CDT Mixed hyperlipidemia TSH Routine 11/22/2024 9:37 AM CDT Fatigue, unspecified type HEMOGLOBIN A1C Routine 11/22/2024 9:37 AM CDT Pre-diabetes COMPREHENSIVE METABOLIC PANEL Routine 11/22/2024 9:37 AM CDT Mixed hyperlipidemia CBC WITH AUTO DIFFERENTIAL Routine 11/22/2024 9:37 AM CDT Fatigue, unspecified type DEXA AXIAL SKELETON BONE DENSITY 1 OR MORE SITES Schedule Routine, Read Routine (OP Routine) 02/10/2024 Menopause STOOL DNA COLOGUARD Routine 09/21/2023 5:31 PM CDT Colon cancer screening HEPATITIS PANEL, ACUTE Routine 01/25/2021 7:30 AM CDT Accident caused by hypodermic needle, initial encounter from Last 3 Months or Most Recently Relevant to Health Maintenance Results * ECG 12 lead (02/21/2025 5:21 PM CDT) us Ayesha Henderson NP ECG ORDERABLES Final Result * POCT glucose (02/21/2025 5:13 PM CDT) Glucose Blood, POC 108 Normal Fasting 70 - 100, Random <200 mg/dL Blood 02/21/2025 5:13 PM CDT us Ayesha Henderson NP POINT OF CARE TEST ORDERABLES Final Result * Screening Mammogram Bilateral W Dion (12/12/2024 12:14 PM CDT) Anatomical Region Laterality Modality Breast Bilateral Mammography Impressions 12/13/2024 7:56 AM CDT Right 1) Post-Surgical Finding: Right breast post-surgical finding. Left No evidence of malignancy. OVERALL BI-RADS FINAL ASSESSMENT: 2 - Benign RECOMMENDATION: Recommend bilateral annual screening mammography. Narrative 12/13/2024 7:56 AM CDT EXAMINATION: Screening Mammogram Bilateral W Dion: 12/12/2024 COMPARISON: Relevant prior studies available at the time of interpretation were reviewed. TECHNIQUE: Mammography was performed with 2D and digital breast tomosynthesis (DBT) images. CAD was utilized. BREAST PARENCHYMAL COMPOSITION: There are scattered areas of fibroglandular density. FINDINGS: Right 1) Post-Surgical Finding: There are post-surgical findings from a previous lumpectomy seen in the right breast. Left There is no suspicious mass, calcification, or architectural distortion. Petrona Santoro NP IMG MAMMO PROCEDURES Final Result * XR Spine Lumbar Complete 4 Or More (12/08/2024 8:28 AM CDT) Anatomical Region Laterality Modality Spine N/A Digital Radiogra phy 12/08/2024 8:32 AM CDT Narrative 12/08/2024 8:35 AM CDT EXAM DESCRIPTION: XR SPINE LUMBAR 4 OR MORE VIEWS REASON FOR STUDY: Nontraumatic low back pain and stiffness with unspecified levels and nature left lower extremity sciatica for 2 weeks. No provided history of inciting and/or aggravating events. No provided past medical history. No lumbar spine surgery. TECHNIQUE: 4 radiographic view(s) of the lumbar spine. COMPARISON: Relevant portions of two-view chest radiograph 08/08/2024; relevant portions of CT abdomen pelvis 03/11/2006. FINDINGS: ALIGNMENT: Variable minimal to mild stair step retrolisthesis T12 on L1 through L3 on L4 in advance of minimal grade 1 anterolisthesis L4 on L5. VERTEBRAE: No radiographic evidence of acute fracture. Multilevel variable minimal to mild anterior degenerative wedging of the lower thoracic through upper lumbar spine. Spondylosis. DISCS: Multilevel variable loss of intervertebral disc height of the lower thoracic through lumbar spine. SOFT TISSUES: Cholecystectomy clips right upper quadrant of the abdomen. Calcific atherosclerosis of the aorta and branch vasculature. IMPRESSION: 1. No radiographic evidence of acute fracture of the lumbar spine with constellation of spondylolisthesis, spondylosis, and degenerative disc disease. 2. Cholecystectomy. THIS IS AN ELECTRONICALLY VERIFIED FINAL REPORT 12/08/2024 8:35 AM - Electronically signed by Martinez JAVIER T: Report ID: [id number] Reading Location: [id number] Procedure Note Martinez Moy MD - 12/08/2024 EXAM DESCRIPTION: XR SPINE LUMBAR 4 OR MORE VIEWS REASON FOR STUDY: Nontraumatic low back pain and stiffness withunspecified levels and nature left lower extremity sciatica for 2 weeks. No provided history of inciting and/or aggravating events. No provided past medical history. No lumbar spine surgery. TECHNIQUE: 4 radiographic view(s) of the lumbar spine. COMPARISON: Relevant portions of two-view chest radiograph 08/08/2024; relevant portions of CT abdomen pelvis 03/11/2006. FINDINGS: ALIGNMENT: Variable minimal to mild stair step [id number] on L1 through L3 on L4 in advance of minimal grade 1 anterolisthesis L4 onL5. VERTEBRAE: No radiographic evidence of acute fracture. Multilevelvariable minimal to mild anterior degenerative wedging of the lower thoracicthrough upper lumbar spine. Spondylosis. DISCS: Multilevel variable loss of intervertebral disc height of the lower thoracic through lumbar spine. SOFT TISSUES: Cholecystectomy clips right upper quadrant of the abdomen. Calcific atherosclerosis of the aorta and branch vasculature. IMPRESSION: 1. No radiographic evidence of acute fracture of the lumbar spine with constellation of spondylolisthesis, spondylosis, and degenerative disc disease. 2. Cholecystectomy. THIS IS AN ELECTRONICALLY VERIFIED FINAL REPORT 12/08/2024 8:35 AM - Electronically signed by Martinez JAVIER T: Report ID: [id number] Reading Location: [place] [address] Mesha RODRIGUEZ IMG XR PROCEDURES Final Re sult * eGFR (11/22/2024 9:37 AM CDT) Pathologist [facility] eGFR 90 >=60 mL/min/1. 73 m2 Comment: Interpretive Data Reference Interval Normal >/= 90 mL/min/1.73m2 Mildly decreased* 60 - 89 mL/min/1.73m2 Mildly to moderately decreased 45 - 59 mL/min/1.73m2 Moderately to severely decreased 30 - 44 mL/min/1.73m2 Severely decreased 15 - 29 mL/min/1.73m2 Kidney Failure < 15 mL/min/1.73m2 *Relative to young adult level Estimated glomerular filtration rate is determined by the 2020 CKD-EPI equation recommended by the National Kidney Foundation (A Unifying Approach to GFR Estimation: Recommendations of the NKF-ASK Task Force on Reassessing the Inclusion of Race in Diagnosing Kidney Disease, JASN 2020). The CKD-EPI equation should not be used for patients with unstable renal function and has not been validated in children and those over 70. Current interpretive data was last reviewed 2021. Blood 11/22/2024 9:37 AM CDT 11/22/2024 6:28 PM CDT Mesha RODRIGUEZ LAB BLOOD ORDERABLES Final Result [facility] [address] Department [place] [address] * Differential, auto (11/22/2024 9:37 AM CDT) Pathologist [facility] Neutrophil abs 2.20 1.50 - 6.50 K/cumm Imm gran abs 0.01 0.00 - 0.10 K/cumm [facility] Lymphocyte abs 2.21 0.80 - 3.30 K/cumm [facility] Monocyte abs 0.32 0.20 - 0.80 K/cumm [facility] Eosinophil abs 0.34 0.00 - 0.50 K/cumm [facility] Basophil abs 0.06 0.00 - 0.10 K/cumm [facility] Neutrophil pct 42.8 % [facility] Comment: Interpretive Data Percent cell count reference ranges are not reported, since discordance with absolute values may lead to misinterpretation of CBC data. Current Interpretive Data was last revised on 2017. Imm gran pct 0.2 % [facility] Comment: Interpretive Data Percent cell count reference ranges are not reported, since discordance with absolute values may lead to misinterpretation of CBC data. Current Interpretive Data was last revised on 2017. Lymphocyte pct 43.0 % [facility] Comment: Interpretive Data Percent cell count reference ranges are not reported, since discordance with absolute values may lead to misinterpretation of CBC data. Current Interpretive Data was last revised on 2017. Monocyte pct 6.2 % [facility] Comment: Interpretive Data Percent cell count reference ranges are not reported, since discordance with absolute values may lead to misinterpretation of CBC data. Current Interpretive Data was last revised on 2017. Eosinophil pct 6.6 % [facility] Comment: Interpretive Data Percent cell count reference ranges are not reported, since discordance with absolute values may lead to misinterpretation of CBC data. Current Interpretive Data was last revised on 2017. Basophil pct 1.2 % [facility] Comment: Interpretive Data Percent cell count reference ranges are not reported, since discordance with absolute values may lead to misinterpretation of CBC data. Current Interpretive Data was last revised on 2017. Blood 11/22/2024 9:3 7 AM CDT 11/22/2024 4:59 PM CDT Mesha RODRIGUEZ LAB BLOOD ORDERABLES Final Result [facility] [address] Department [place] [address] * (ABNORMAL) CBC with auto differential (11/22/2024 9:37 AM CDT) WBC 5.14 3.80 - 9.90 K/cumm Hgb 14.5 11.9 - 15.5 g/dL [facility] Hct 46.7(H) 35.6 - 45.5 % [facility] Plt 177 150 - 400 K/cumm [facility] MPV 12.3 9.1 - 12.3 fL [facility] RBC 4.87 3.90 - 5.20 M/cumm [facility] MCV 95.9 81.3 - 96.4 fL [facility] MCH 29.8 27.1 - 33.3 pg [facility] MCHC 31.0(L) 32.3 - 35.7 g/dL [facility] RDW CV 13.2 11.1 - 14.9 % [facility] RDW SD 47.0 35.7 - 48.1 fL [facility] NRBC abs 0.00 0.00 - 0.01 K/cumm [facility] Blood 11/22/2024 9:37 AM CDT 11/22/2024 4:59 PM CDT Mesha RODRIGUEZ LAB BLOOD ORDERABLES Final Result Performing Organization Address City/[facility] Co de Phone Number [facility] [address] [facility] [place] [address] * TSH (11/22/2024 9:37 AM CDT) Thyroid Stimulating Hormone 2.56 0.30 - 4.20 mcIUnit/mL Blood 11/22/2024 9:37 AM CDT 11/22/2024 4:59 PM CDT Mesha RODRIGUEZ LAB BLOOD ORDERABLES Final Result Performing Organization Address City/[facility] Co de Phone Number [facility] [address] [place] [address] * (ABNORMAL) Hemoglobin A1c (11/22/2024 9:37 AM CDT) Hgb A1C 6.2(H) 4.0 - 5.6 % Estimated Average Glucose 131 mg/dL [facility] Comment: The ADA recommends reporting an estimated Average Glucose (eAG) with all Hemoglobin A1c results using the equation derived from a study of 507 normal and diabetic adults. Minority populations were underrepresented and children were not included. (Diabetes Care 31:9329-9414, 2008). The eAG is not equivalent to a fasting glucose. Blood 11/22/2024 9:37 AM CDT 11/22/2024 4:59 PM CDT Mesha RODRIGUEZ LAB BLOOD ORDERABLES Final Result [facility] [address] [place] [address] * Lipid panel (11/22/2024 9:37 AM CDT) Cholesterol 158 30 - 199 mg/dL Comment: Interpretive Data Ages < or = 19 years Acceptable: <170 mg/dL Borderline high: 170-199 mg/dL High: >or= 200 mg/dL Ages > or = 20 years Desirable: <200 mg/dL Borderline high: 200-239 mg/dL High: >or= 240 mg/dL Literature References: 1. Expert Panel on Integrated Guidelines for Cardiovascular Health and Risk Reduction in Children and Adolescents. Pediatrics 2011;128:S213 2. NCEP Expert Panel. Circulation 2004;110:227 Current Interpretive Data was last revised on 2018. Triglycerides 120 <=149 mg/dL [facility] Comment: Interpretive Data Ages < or = 9 years Acceptable: <75 mg/dL Borderline high: 75-99 mg/dL High: >or= 100 mg/dL Ages 10 to 20 years Acceptable: <90 mg/dL Borderline high: 90-129 mg/dL High: >or= 130 mg/dL Ages > or = 20 years Desirable: <150 mg/dL Borderline high: 150-199 mg/dL High: 200-499 mg/dL Very high: >or= 499 mg/dL Literature References: 1. Expert Panel on Integrated Guidelines for Cardiovascular Health and Risk Reduction in Children and Adolescents. Pediatrics 2011;128:S213 2. NCEP Expert Panel. Circulation 2004;110:227 Current Interpretive Data was last revised on 2018. HDL 56 >=40 mg/dL [facility] Comment: Interpretive Data Ages < or = 19 years Acceptable: >45 mg/dL Borderline low: 40-45 mg/dL Low: <40 mg/dL Ages > or = 20 years Desirable: >or= 60 mg/dL Low: <40 mg/dL Literature References: 1. Expert Panel on Integrated Guidelines for Cardiovascular Health and Risk Reduction in Children and Adolescents. Pediatrics 2011;128:S213 2. NCEP Expert Panel. Circulation 2004;110:227 Current Interpretive Data was last revised on 2018. LDL, calculated 81 <=129 mg/dL [facility] Comment: Interpretive Data Ages < or = 19 years Acceptable: <110 mg/dL Borderline high: 110-129 mg/dL High: >or= 130 mg/dL Ages > or = 20 years Optimal: <100 mg/dL Near optimal: 100-129 mg/dL Borderline high: 130-159 mg/dL High: >160 mg/dL Calculated using the Joel LDL-C estimating equation. This equation was implemented on 2024. Prior to this date LDL-C was estimated using the Friedewald equation. Literature References: 1. Expert Panel on Integrated Guidelines for Cardiovascular Health and Risk Reduction in Children and Adolescents. Pediatrics 2011;128:S213 2. NCEP Expert Panel. Circulation 2004;110:227 3. Joel Elias et al. EARL Cardiol. 2019November 03;5(5):540-548. doi: 10.1001/jamacardio.2020.0013 Current Interpretive Data was last revised on 2024. Non-HDL Cholesterol 102 mg/dL [facility] Comment: Interpretive Data Ages < or = 19 years Acceptable: <120 mg/dL Borderline high: 120-144 mg/dL High: >145 mg/dL Ages > or = 20 years When triglycerides are >200 mg/dL, Non-HDL cholesterol is a secondary target of therapy with treatment goals that are 30 mg/dL greater than the LDL cholesterol target. Literature References: 1. Expert Panel on Integrated Guidelines for Cardiovascular Health and Risk Reduction in Children and Adolescents. Pediatrics 2011;128:S213 2. NCEP Expert Panel. Circulation 2004;110:227 Current Interpretive Data was last revised on 2018. Chol/HDL ratio 3 [facility] RODRIGEZ Blood 11/22/2024 9:37 AM CDT 11/22/2024 4:59 PM CDT Mesha RODRIGUEZ LAB BLOOD ORDERABLES Final Result [facility] [address] [place] [address] * Comprehensive metabolic panel (11/22/2024 9:37 AM CDT) Sodium 143 135 - 145 mmol/L Potassium, pl 4.8 3.3 - 4.9 mmol/L [facility] Chloride 106 97 - 110 mmol/L [facility] CO2 29 22 - 32 mmol/L [facility] Anion gap 8 2 - 15 mmol/L [facility] BUN 12 6 - 25 mg/dL [facility] Creatinine 0.70 0.60 - 1.10 mg/dL [facility] Glucose 100 70 - 199 mg/dL [facility] Comment: Interpretive Data Fasting glucose >/= 126 mg/dl is diagnostic for diabetes. Fasting is defined as no caloric intake for at least 8 hours. Fasting glucose between 100 mg/dl to 125 mg/dl is diagnostic of prediabetes. In a patient with classic symptoms of hyperglycemia or hyperglycemic crisis, a random glucose >/= 200 mg/dl is diagnostic for diabetes. In the absence of unequivocal hyperglycemia, results should be confirmed by repeat testing. The classification and Diagnosis of Diabetes Diabetes Care 2021; 46: S19-S40. Current interpretive data was last revised 2022. Calcium 9.4 8.5 - 10.3 mg/dL [facility] Bilirubin, total 0.3 0.1 - 1.2 mg/dL [facility] Protein, pl 6.6 6.5 - 8.5 g/dL [facility] Albumin 3.9 3.5 - 5.0 g/dL [facility] Alk phos 82 40 - 130 Units/L [facility] ALT 14 7 - 45 Units/L [facility] AST 28 10 - 45 Units/L [facility] Blood 11/22/2024 9:37 AM CDT 11/22/2024 4:59 PM CDT Mesha RODRIGUEZ LAB BLOOD ORDERABLES Final Result Performing Organization Address City/[facility]/ZIP Co de Phone Number [facility] [address] [place] [address] * Dexa Axial Skeleton Bone Density 1 or 2 Site (02/10/2024) SCRIBED DXA T-SCORE 0.1 SCRIBED DXA Z-SCORE 2.5 SCRIBED DXA BMD 1.054 Anatomical Region Laterality Modality Body N/A Radiographic Flaquita ging 02/10/2024 Mesha RODRIGUEZ IMG DXA PROCEDURES Final R esult * Stool DNA - Cologuard (09/21/2023 5:31 PM CDT) Stool DNA - Cologuard Negative Negative [facility] (CLIA #:[id number]) Comment: NEGATIVE TEST RESULT. A negative Cologuard result indicates a low likelihood that a colorectal cancer (CRC) or advanced adenoma (adenomatous polyps with more advanced pre-malignant features) is present. The chance that a person with a negative Cologuard test has a colorectal cancer is less than 1 in 1500 (negative predictive value >99.9%) or has an advanced adenoma is less than 5.3% (negative predictive value 94.7%). These data are based on a prospective cross-sectional study of 10,000 individuals at average risk for colorectal cancer who were screened with both Cologuard and colonoscopy. (Whitley Sánchez al, N Engl J Med 2014;370(14):3875-9032) The normal value (reference range) for this assay is negative. COLOGUARD RE-SCREENING RECOMMENDATION: Periodic colorectal cancer screening is an important part of preventive healthcare for asymptomatic individuals at average risk for colorectal cancer. Following a negative Cologuard result, the [place] [employer] and U.S. Multi-Society Task Force screening guidelines recommend a Cologuard re-screening interval of 3 years. References: [place] [employer] Guideline for Colorectal Cancer Screening: https://www.cancer.org/cancer/sncmw-cnjkli-krxsvd/xyyuxneyw-xmimbodcp-eaclgkk/ac s-rec ommendations.html.; Hayden DK, Mary Grace CR, Maddi JACOBSEN, Colorectal Cancer Screening: Recommendations for Physicians and Patients from the U.S. Multi-Society Task Force on Colorectal Cancer Screening , Am J Gastroenterology 2017; 112:0171-8623. TEST DESCRIPTION: Composite algorithmic analysis of stool DNA-biomarkers with hemoglobin immunoassay. Quantitative values of individual biomarkers are not reportable and are not associated with individual biomarker result reference ranges. Cologuard is intended for colorectal cancer screening of adults of either sex, 45 years or older, who are at average-risk for colorectal cancer (CRC). Cologuard has been approved for use by the U.S. FDA. The performance of Cologuard was established in a cross sectional study of average-risk adults aged 50-84. Cologuard performance in patients ages 45 to 49 years was estimated by sub-group analysis of near-age groups. Colonoscopies performed for a positive result may find as the most clinically significant lesion: colorectal cancer [4.0%], advanced adenoma (including sessile serrated polyps greater than or equal to 1cm diameter) [20%] or non- advanced adenoma [31%]; or no colorectal neoplasia [45%]. These estimates are derived from a prospective cross-sectional screening study of 10,000 individuals at average risk for colorectal cancer who were screened with both Cologuard and colonoscopy. (Whitley Lane. et al, N Engl J Med 2014;370(14):4058-8431.) Cologuard may produce a false negative or false positive result (no colorectal cancer or precancerous polyp present at colonoscopy follow up). A negative Cologuard test result does not guarantee the absence of CRC or advanced adenoma (pre-cancer). The current Cologuard screening interval is every 3 years. ([place] [employer] and U.S. Multi-Society Task Force). Cologuard performance data in a 10,000 patient pivotal study using colonoscopy as the reference method can be accessed at the following location: [email or web address]/results. Additional description of the Cologuard test process, warnings and precautions can be found at www.cologFaceBuzzrd.com. Stool 09/21/2023 5:31 PM CDT 09/23/2023 10:42 AM CDT Mesha RODRIGUEZ LAB BODY FLUIDS AND STOOLS ORDERABLES Final Result [id number] Your Office Agent [facility] (CLIA #:[id number]) [address] [place] [address] * Hepatitis panel, acute (01/25/2021 7:30 AM CDT) Hep A IgM NON-REACTI VE NON-REACT LAURA [facility] Comment: For additional information, please refer to http://[employer].Cloudy Days/faq/PUU155 (This link is being provided for informational/ educational purposes only.) HepBsAg NON-REACTI VE NON-REACT LAURA [facility] Hep B core IgM NON-REACTI VE NON-REACT LAURA [facility] Hep C Ab NON-REACTI VE NON-REACT LAURA [facility] SIGNAL TO CUT-OFF 0.01 <1.00 [facility] Comment: HCV antibody was non-reactive. There is no laboratory evidence of HCV infection. In most cases, no further action is required. However, if recent HCV exposure is suspected, a test for HCV RNA (test code 13696) is suggested. For additional information please refer to http://[employer].Cloudy Days/faq/YOE93f5 (This link is being provided for informational/ educational purposes only.) Blood specimen (specimen) 01/25/2021 7:30 AM CDT 01/25/2021 8:06 AM CDT Mesha RODRIGUEZ LAB MICROBIOLOGY - GENERAL ORDERABLES Final Result [facility] [address] [address] [phone] from Last 3 Months or Most Recently Relevant to Health Maintenance Insurance MEDICARE [employer] T MEDICARE T [place] [address] [employer] MEDICARE [facility] MEDICARE Advance Directives For more information, please contact: [phone] Documents on File Type Date Recorded 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 Expl 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 ADVANCE DIRECTIVE 09/27/2021 6:06 AM POLST - Phys Order for PT Preferences Care Teams Servicenow Administrator Relationship Specialty Start Date End Date Mesha Kilgore PA [address] [address] PCP - General Internal Medicine 10/19/18 Stan Mcconnell MD [address] [facility] [address] [place] [address] [address] Housekeeper Cleaning Cooking Cardiology 06/08/19 Sylvia Gunn MD [address] [facility] [address] [place] [address] Surgeon Surgical Oncology 08/05/21 Lorene Palma MD PhD [address] [facility] [address] [place] [address] Radiation Oncologist Radiation Oncology 08/30/21
--- OUTSIDE RECORDS SUMMARY | 2025-02-21 17:56 | XMS_ITS | Clinical Summary ---
Author Organization [facility] Address [address] [address] Care Team Providers Care Hydraulic Strainer Operator Name Role Phone Mesha Kilgore PA-C Primary Care Provider [phone] Stan Mcconnell MD Unavailable [phone] Source Comments [facility],non-owned Affiliates and Associated Physician Practices is amultiple site organization consisting of ambulatory clinics and hospital sitesin [place], [place], [place] and [place]. This disclosure is being madepursuant to the Care Everywhere program and may not contain all information available regarding this patient. Last updated 18.[facility] Allergies Active Allergy Reactions Criticality Noted Date Comments Codeine Vomiting Penicillins Skin Reactions 05/06/2018 Medications * Be aware that medications may not be up to date on this document. Alwaysverify current medications with the patient. Fluticasone-Salm eterol (ADVAIR HFA IN) Inhale 2 puffs by mouth once daily as needed Active escitalopram (LEXAPRO) 10 MG tablet Take 10 mg by mouth once daily 9 Active omeprazole (PRILOSEC) 40 MG capsule Take 40 mg by mouth once daily 9 Active vitamin D3 (CHOLECACIFEROL) 125 MCG (5000 UT) Take 5,000 Units by mouth once daily Active ascorbic acid (VITAMIN C) 500 MG tablet Take 500 mg by mouth once daily Active CPAP Use as directed Active celecoxib (CELEBREX) 200 MG capsule Take 1 capsule by mouth 2 times daily 60 capsule 0 Active ADVAIR HFA 115-21 MCG/ACT INHALE 2 PUFFS BY MOUTH TWICE DAILY (MORNING AND EVENING) 0 Active celecoxib (CELEBREX) 200 MG capsuleIndicatio ns:Aftercare following right knee joint replacement surgery Take 1 capsule by mouth 2 times daily 180 capsule 2 0 Active Active Problems Problem Noted Date Diagnosed Date Bilateral leg cramps 09/11/2019 Overview (01/02/2020): Last Assessment & Plan: Check labs. Pain of left calf 09/11/2019 Overview (01/02/2020): Last Assessment & Plan: Left calf pain increased with compression. STAT [...] to make sure CPAP settings are correct. Primary osteoarthritis of left knee 02/01/2019 Bilateral calf pain 11/05/2018 Mild intermittent asthma without complication Overview (11/05/2018): Overview: Dr. Aldana at [place] Last Assessment & Plan: Continue Advair and treat allergies. Mixed hyperlipidemia 10/19/2018 Moderate episode of recurrent major depressive d isorder 10/19/2018 CARLEE on CPAP 10/19/2018 Overview (11/05/2018): Overview: Dr. Aldana at [place] Primary osteoarthritis of both knees 05/06/2018 Idiopathic osteoarthritis 02/27/2017 Social History Tobacco Use Types Packs/Day Years Used Date Smoking Tobacco: Never Smokeless Tobacco: Never Alcohol Use Standard Drinks/Week Comments Not Currently 0 (1 standard drink = 0.6 oz pur e alcohol) 2 times a year Comments Unknown Sex and Gender Information Value Date Recorded Sex Assigned at Not on file Legal Sex Female 3:07 PM CDT Gender Identity Not on file Sexual Orientation Not on file Last Filed Vital Signs Vital Sign Reading Time Taken Comments Blood Pressure 104/53 12/13/2019 7:15 AM CDT Pulse 54 12/13/2019 7:15 AM CDT Temperature 36.4 C (97.6 F) 12/13/2019 7:15 AM CDT Respiratory Rate 18 12/13/2019 7:15 AM CDT Oxygen Saturation 95% 12/13/2019 7:15 AM CDT Inhaled Oxygen Concentration - - Weight 75.3 kg (166 lb) 12/12/2019 12:07 PM CDT Height 152.4 cm (5') 12/12/2019 12:07 PM CDT Body Mass Index 32.42 12/12/2019 12:07 PM CDT Plan of Treatment Health Maintenance Due Date Last Done Comments BONE DENSITY TESTING 1950 HEPATITIS C SCREENING 08/05/1966 DTAP/TDAP/TD VACCINES (1 - Tdap) 1967 PNEUMOCOCCAL VACCINE 50+ (1 of 2 - PCV) 1967 ZOSTER VACCINE (1 of 2) 1998 SCREENING FOR DIABETES 12/12/2022 0, 12/01/2019, 05/23/2019, Additional history exists Respiratory Syncytial Virus (RSV) Vaccine Pt: or over 60 yrs (1 - 1-dose 75+ series) 2023 COVID-19 VACCINE (2023- season) 2024 DEPRESSION SCREENING 07/06/2024 INFLUENZA VACCINE (#1) 2025 9, 05/06/2019, 05/04/2018, Additional history exists HEPATITIS B VACCINE Aged Out No longe r eligible based on patient's age to complete this topic HIB VACCINE Aged Out No longer eligi ble based on patient's age to complete this topic HPV VACCINE Aged Out No longer eligi ble based on patient's age to complete this topic MENINGOCOCCAL (Group B) VACCINE SHARED DECISION-MAKING Aged Out No longer eligible based on patient's age to complete this topic MENINGOCOCCAL GROUPS A/C/Y/W VACCINE Aged Out No longer eligible based on patient's age to complete this topic Medical Devices Implanted Type Area Public Information Coordinator Device Identifier Shelf Expiration Date Model / Serial / Lot Cmnt Bone Djo Srg Cblt 40gm Hvisc Strl Implanted:Qty: 1 on 06/13/2019 by Harshal Quarles MD at [facility] Left: Knee [employer] 08/26/2020 600-15-000 / / [id number] Tray Tib 67mm Kn Cocr I Beam Implanted:Qty: 1 on 06/13/2019 by Harshal Quarles MD at [facility] Left: Knee [employer] 09/06/2028 [id number] / / [id number] Cmpnt Ptlr 28mm 1 Pg Wire Ascnt Arcm Kn Implanted:Qty: 1 on 06/13/2019 by Harshal Quarles MD at [facility] Left: Knee [employer] 05/20/[id number] / / [id number] Cmpnt Fem Kn Lt Cr Cmnt Prm Vngrd Intlk Implanted:Qty: 1 on 06/13/2019 by Harshal Quarles MD at [facility] Left: Knee [employer] 04/13/2029 [id number] / / [id number] Brng [id number] Vngrd Arcm Kn Ant Stab Implanted:Qty: 1 on 06/13/2019 by Harshal Quarles MD at [facility] Left: Knee [employer] 01/28/2024 [id number] / / [id number] Brng [id number] Vngrd Arcm Kn Ant Stab Implanted:Qty: 1 on 12/12/2019 by Harshal Quarles MD at [facility] Right: Knee [employer] 09/02/2024 [id number] / / [id number] Cmnt Bone Djo Srg Cblt 40gm Hvisc Strl Implanted:Qty: 1 on 12/12/2019 by Harshal Quarles MD at [facility] Right: Knee [employer] 05/04/2020 600-15-000 / / [id number] Cmpnt Ptlr 28mm 1 Pg Wire Ascnt Arcm Kn Implanted:Qty: 1 on 12/12/2019 by Harshal Quarles MD at [facility] Right: Knee [employer] 08/10/2024 [id number] / / [id number] Tray Tib 67mm Kn Cocr I Beam Implanted:Qty: 1 on 12/12/2019 by Harshal Quarles MD at [facility] Right: Knee [employer] 05/15/2029 [id number] / / [id number] Cmpnt Fem Kn Rt Cr Cmnt Prm Vngrd Intlk Implanted:Qty: 1 on 12/12/2019 by Harshal Quarles MD at [facility] Right: Knee [employer] 07/08/2029 [id number] / / [id number] Procedures Procedure Name Priority Date/Time Associated Diagnosis Comments BASIC METABOLIC PANEL (CALCIUM TOTAL) AM Draw 12/13/2019 4:08 AM CDT from Last 3 Months or Most Recently Relevant to Health Maintenance Results * (ABNORMAL) BASIC METABOLIC PANEL (CALCIUM TOTAL) (12/13/2019 4:08 AM CDT) Glucose 112(H) 70 - 105 mg/dL 12/13/2019 4:56 AM CDT [facility] Sodium 139 136 - 145 mmol/L 12/13/2019 4:56 AM CDT [facility] Potassium 4.1 3.5 - 5.1 mmol/L 12/13/2019 4:56 AM CDT [facility] Chloride 104 98 - 107 mmol/L 12/13/2019 4:56 AM CDT [facility] CO2 27 23 - 31 mmol/L 12/13/2019 4:56 AM CDT [facility] Calcium 8.8 8.4 - 10.4 mg/dL 12/13/2019 4:56 AM CDT [facility] Anion Gap 8 8 - 16 mmol/L 12/13/2019 4:56 AM CDT [facility] BUN 10 9.8 - 20.1 mg/dL 12/13/2019 4:56 AM CDT [facility] Creatinine 0.73 0.57 - 1.11 mg/dL 12/13/2019 4:56 AM CDT [facility] eGFR by MDRD >60 mL/min/1.7 3m2 12/13/2019 4:56 AM CDT [facility] eGFR by MDRD >60 mL/min/1.7 3m2 12/13/2019 4:56 AM CDT [facility] Blood BLOOD SPECIMEN / Unknown Venipuncture / Unknown 12/13/2019 4:08 AM CDT 12/13/2019 4:15 AM CDT us Harshal Quarles MD LAB - CHEMISTRY ORDERABLES Fi nal Result [facility] [address] [place] [address] from Last 3 Months or Most Recently Relevant to Health Maintenance Insurance MEDICARE Product Hunt Advance Directives * Full Code (Latest Code Status on File) Date Activated Date Inactivated Comments 12/12/2019 11:43 AM 12/13/2019 2:33 PM * Full Code Date Activated Date Inactivated Comments 06/13/2019 3:27 PM 06/15/2019 12:35 PM Care Teams Hydraulic Strainer Operator Relationship Specialty Start Date End Date Mesha Kilgore PA-C PCP - General Physician Classification Clerk 11/05/18 Stan Mcconnell MD [address] [place] [address] [place] [id number] Cardiovascular Disease 06/08/19
--- NOTE | 2025-02-21 18:54 | ED_ITS ---
HPI - Dizziness General Chief Complaint: Dizziness <Regine Kilpatrick PA-C - Last Filed: 02/22/25 10:25> Stated Complaint: Dizzy <Regine Kilpatrick PA-C - Last Filed: 02/22/25 10:25> Time Seen by Provider: 02/21/25 18:54 <Regine Kilpatrick PA-C - Last Filed: 02/22/25 10:25> Focused HPI: This is a 74 year old female that presents to the ER for headache, dizziness. Ongoing over the last couple of days. Reports she feels unwell, nauseous. Has had some confusion. GENERAL: Well-appearing, well-nourished, and in no acute distress. HEAD: Normocephalic, atraumatic. CHEST: Clear to auscultation. ?No respiratory distress. HEART: Regular rate and rhythm.? NEURO: ?Alert and oriented x3. Patient screened in triage and initial orders placed.? ?Additional care and disposition to be based upon?diagnostic testing and treatment. <Regine Kilpatrick PA-C - Last Filed: 02/22/25 10:25> History of Present Illness HPI Narrative: 74-year-old female presents emergency department for evaluation for symptoms of dizziness fatigue and headache since Thursday. Patient does have a remote history of vertigo and states the his symptoms are similar but patient reports he has also been having increased fatigue. Patient did have a headache that was bothering her early in the day she did take Excedrin states the headache has resolved. Patient denies any other focal neurologic abnormalities. patient denies any cough cold fevers constipation diarrhea or pain with urination. Patient denies any falls or injuries. Patient is present with her daughters <Sigifredo Kruger MD - Last Filed: 02/22/25 04:22> Related Data Home Medications: Home Medications ?Medication ?Instructions ?Recorded ?Confirmed ?Last Taken ?Type escitalopram oxalate 10 mg tablet 10 mg PO DAILY 04/1504/20/24 Unknown History (Lexapro) omeprazole 20 mg capsule,delayed 20 mg PO DAILY 04/20/24 Unknown History release fluticasone propionate 115 1 puff inhalation PRN PRN 1 08/24/20 04/20/24 Unknown History mcg-salmeterol 21 mcg/actuation difficulty breathing HFA inhaler (Advair HFA) rosuvastatin 5 mg tablet 5 mg PO DAILY 06/23/2104/20 Unknown History tamoxifen 20 mg tablet 20 mg PO DAILY 04/16/2204/05 Unknown History <Regine Kilpatrick PA-C - Last Filed: 02/22/25 10:25> Allergies/Adverse Reactions: Allergies Allergy/AdvReac Type Severity Reaction Status Date / Time nitrofurantoin Allergy Severe Hives Verified 02/21/25 17:56 cephalexin Allergy Unknown Hives Verified 02/21/25 17:56 codeine Allergy Unknown Abdominal Verified 02/21/25 17:56 Pain Penicillins Allergy Unknown Swelling Verified 02/21/25 17:56 <Regine Kilpatrick PA-C - Last Filed: 02/22/25 10:25> Review of Systems 2 Review of Systems: All systems reviewed & are unremarkable except as noted in HPI and below <Sigifredo Kruger MD - Last Filed: 02/22/25 04:22> [facility] Past Medical History Medical History: Medical History ADHD Asthma Depression <Regine Kilpatrick PA-C - Last Filed: 02/22/25 10:25> Surgical History Surgical History: Surgical History H/O adenoidectomy History of appendectomy History of lumpectomy Hx of hysterectomy Hx of tonsillectomy <Regine Kilpatrick PA-C - Last Filed: 02/22/25 10:25> Family History Family History: Family History Sibling Hypertension Grandparent Cerebrovascular accident Diabetes mellitus Father Family history of malignant neoplasm of urinary bladder, Onset Age: 68 Family history of alcoholism, Onset Age: 68 Mother Family history of dementia, Onset Age: 84 <Regine Kilpatrick PA-C - Last Filed: 02/22/25 10:25> Social History Social History: Social History Smoking status: Never smoker Alcohol intake: current <Regine Kilpatrick PA-C - Last Filed: 02/22/25 10:25> Exam 2 Narrative: APPEARANCE: Well appearing, no pain, no distress, well-nourished. HEAD: normocephalic, atraumatic. EYES: PERRLA/EOMI, conjunctivae clear. NOSE: Normal no drainage EARS:TMS clear with good light reflex. THROAT: Pharynx clear, no exudate. NECK: Supple. No adenopathy, no masses. RESPIRATORY: Airway patent, respirations nonlabored. Clear to auscultation bilaterally, no rales, rhonchi, wheezing. CARDIOVASCULAR: Regular rate and rhythm without murmurs rubs or gallops. ABDOMINAL: Soft, nontender, nondistended, normal bowel sounds MUSCULOSKELETAL: Moves all extremities. Strength/ROM intact, No edema, No calf tenderness. NEURO: Alert. Cranial nerves II through XII intact. SKIN: Warm, dry. Normal Color <Sigifredo Kruger MD - Last Filed: 02/22/25 04:22> Course Vital Signs Vital signs: Vital Signs Temperature 98 F 02/21/25 17:55 Pulse Rate 59 L 02/21/25 17:55 Respiratory Rate 16 02/21/25 17:55 Blood Pressure 136/75 02/21/25 17:55 Pulse Oximetry 96 02/21/25 17:55 Oxygen Delivery Room Air 02/21/25 17:55 Temperature 98 F 02/21/25 17:55 Pulse Rate 50 L 02/21/25 22:26 Respiratory Rate 14 02/21/25 22:26 Blood Pressure 142/63 H 02/21/25 22:26 Pulse Oximetry 97 02/21/25 22:26 Oxygen Delivery Room Air 02/21/25 17:55 <Regine Kilpatrick PA-C - Last Filed: 02/22/25 10:25> Vital Signs Temperature 98 F 02/21/25 17:55 Pulse Rate 59 L 02/21/25 17:55 Respiratory Rate 16 02/21/25 17:55 Blood Pressure 136/75 02/21/25 17:55 Pulse Oximetry 96 02/21/25 17:55 Oxygen Delivery Room Air 02/21/25 17:55 Temperature 98 F 02/21/25 17:55 Pulse Rate 50 L 02/21/25 22:26 Respiratory Rate 14 02/21/25 22:26 Blood Pressure 142/63 H 02/21/25 22:26 Pulse Oximetry 97 02/21/25 22:26 Oxygen Delivery Room Air 02/21/25 17:55 <Sigifredo Kruger MD - Last Filed: 02/22/25 04:22> MDM - Dizziness MDM Narrative Medical decision making narrative: 74-year-old female present emergency department for evaluation for dizziness. Patient does have prior history of vertigo. Patient was treated with meclizine and on re-evaluation patient does feel significantly improved. Patient was able to ambulate on her own. Patient is currently afebrile with no leukocytosis hemoglobin of 13.8. Patient has no acute abnormalities on her CMP UA was negative for infection. Patient had a head CT that was negative and a CTA brain that was also negative. Chest x-ray shows no acute cardiopulmonary abnormality. EKG shows normal sinus rhythm with soft axis deviation. Family updated the results of the plan for treatment with meclizine at home and reports of close follow-up with physicians. <Sigifredo Kruger MD - Last Filed: 02/22/25 04:22> Differential Diagnosis Differential diagnosis: Likely adverse reaction to drug, benign paroxysmal positional vertigo, orthostatic hypotension, vertebral basilar insufficiency, cerebrovascular accident, acute vestibular neuronitis and transient cerebral ischemia <Sigifredo Kruger MD - Last Filed: 02/22/25 04:22> Lab Data Attestation: I reviewed the patient's lab results. <Sigifredo Kruger MD - Last Filed: 02/22/25 04:22> Result diagrams: 02/21/25 19:03 02/21/25 19:03 <Regine Kilpatrick PA-C - Last Filed: 02/22/25 10:25> Labs: Lab Results 02/21/25 02/21/25 Range/Units 19:03 19:11 WBC 7.5 (4.5-10.0) K/mm3 RBC 4.67 (4.2-5.4) M/mm3 Hgb 13.8 (12.0-15.0) g/dL Hct 42.1 (37.0-47.0) % MCV 90.1 (80-100) fl MCH 29.6 (26-34) pg MCHC 32.8 (32-36) g/dl RDW 13.1 (11.5-14.5) % Plt Count 167 (150-375) k/mm3 MPV 11.4 H (7.4-10.4) fl Immature Gran % (Auto) 0.3 (0-0.5) % Neut % (Auto) 48.4 (45.5-73.1) % Lymph % (Auto) 40.7 (18.3-44.2) % [place] % (Auto) 6.5 (2.6-8.5) % Eos % (Auto) 3.4 (0-4.4) % Baso % (Auto) 0.7 (0.2-1.2) % Lymph # (Auto) 3.07 (0.9-3.2) K/mm3 [place] # (Auto) 0.5 (0.1-0.6) K/mm3 Eos # (Auto) 0.3 (0-0.3) K/mm3 Baso # (Auto) 0.1 (0.0-0.1) K/mm3 Abs Immat Gran (auto) 0.02 (0.00-0.031) K/mm3 Absolute Neuts (auto) 3.7 (1.3-6.7) K/mm3 Absolute Nucleated RBC 0.000 (0.0-0.012) K/mm3 Nucleated RBC % 0.0 (0.0-0.2) % Sodium 138 (137-145) mmol/L Potassium 4.2 (3.4-5.0) mmol/L Chloride 106 (98-107) mmol/L Carbon Dioxide 23 (22-30) mmol/L Anion Gap 9 (4-12) mmol/L BUN 14 (7-17) mg/dL Creatinine 0.64 L (0.7-1.0) mg/dL Estim Creat Clear Calc 58 ml/min Estimated GFR > 60 (59 - ) Glucose 96 (65-110) mg/dL Calcium 9.2 (8.4-10.2) mg/dL Total Bilirubin 0.4 (0.2-1.3) mg/dL AST 27 (14-36) U/L ALT 17 (6-35) U/L Alkaline Phosphatase 91 (38-126) U/L Total Protein 7.0 (6.3-8.2) g/dL Albumin 4.0 (3.5-5.1) g/dL Urine Color Yellow (Yellow) Urine Appearance Clear (Clear) Urine pH 5.5 (5.0-9.0) Ur Specific [place] 1.007 (1.001-1.035) Urine Protein Negative (Negative) mg/dL Urine Glucose (UA) Negative (Negative) mg/dL Urine Ketones Negative (Negative) mg/dL Ur Blood (Man) Negative (Negative) Urine Nitrate Negative (Negative) Urine Bilirubin Negative (Negative) Urine Urobilinogen 0.2 (<2.0) mg/dL Leukocyte Esterase Rfl Trace H (Negative) DANNY/UL Urine RBC 0-2 (0-2) /hpf Urine WBC 0-5 (0-3) /hpf Ur Squamous Epith Cells None seen (Few) /hpf Urine Bacteria None seen /hpf Urine Casts 0-2 <Regine Kilpatrick PA-C - Last Filed: 02/22/25 10:25> Lab Results 02/21/25 02/21/25 Range/Units 19:03 19:11 WBC 7.5 (4.5-10.0) K/mm3 RBC 4.67 (4.2-5.4) M/mm3 Hgb 13.8 (12.0-15.0) g/dL Hct 42.1 (37.0-47.0) % MCV 90.1 (80-100) fl MCH 29.6 (26-34) pg MCHC 32.8 (32-36) g/dl RDW 13.1 (11.5-14.5) % Plt Count 167 (150-375) k/mm3 MPV 11.4 H (7.4-10.4) fl Immature Gran % (Auto) 0.3 (0-0.5) % Neut % (Auto) 48.4 (45.5-73.1) % Lymph % (Auto) 40.7 (18.3-44.2) % [place] % (Auto) 6.5 (2.6-8.5) % Eos % (Auto) 3.4 (0-4.4) % Baso % (Auto) 0.7 (0.2-1.2) % Lymph # (Auto) 3.07 (0.9-3.2) K/mm3 [place] # (Auto) 0.5 (0.1-0.6) K/mm3 Eos # (Auto) 0.3 (0-0.3) K/mm3 Baso # (Auto) 0.1 (0.0-0.1) K/mm3 Abs Immat Gran (auto) 0.02 (0.00-0.031) K/mm3 Absolute Neuts (auto) 3.7 (1.3-6.7) K/mm3 Absolute Nucleated RBC 0.000 (0.0-0.012) K/mm3 Nucleated RBC % 0.0 (0.0-0.2) % Sodium 138 (137-145) mmol/L Potassium 4.2 (3.4-5.0) mmol/L Chloride 106 (98-107) mmol/L Carbon Dioxide 23 (22-30) mmol/L Anion Gap 9 (4-12) mmol/L BUN 14 (7-17) mg/dL Creatinine 0.64 L (0.7-1.0) mg/dL Estim Creat Clear Calc 58 ml/min Estimated GFR > 60 (59 - ) Glucose 96 (65-110) mg/dL Calcium 9.2 (8.4-10.2) mg/dL Total Bilirubin 0.4 (0.2-1.3) mg/dL AST 27 (14-36) U/L ALT 17 (6-35) U/L Alkaline Phosphatase 91 (38-126) U/L Total Protein 7.0 (6.3-8.2) g/dL Albumin 4.0 (3.5-5.1) g/dL Urine Color Yellow (Yellow) Urine Appearance Clear (Clear) Urine pH 5.5 (5.0-9.0) Ur Specific [place] 1.007 (1.001-1.035) Urine Protein Negative (Negative) mg/dL Urine Glucose (UA) Negative (Negative) mg/dL Urine Ketones Negative (Negative) mg/dL Ur Blood (Man) Negative (Negative) Urine Nitrate Negative (Negative) Urine Bilirubin Negative (Negative) Urine Urobilinogen 0.2 (<2.0) mg/dL Leukocyte Esterase Rfl Trace H (Negative) DANNY/UL Urine RBC 0-2 (0-2) /hpf Urine WBC 0-5 (0-3) /hpf Ur Squamous Epith Cells None seen (Few) /hpf Urine Bacteria None seen /hpf Urine Casts 0-2 <Sigifredo Kruger MD - Last Filed: 02/22/25 04:22> Imaging Data Radiologist's impression: Impressions Chest X-Ray 02/21/25 19:24 IMPRESSION: 1: NO ACUTE CARDIOPULMONARY DISEASE. Head CT 02/21/25 19:25 IMPRESSION: 1. No acute intracranial abnormality. Head/Neck CTA 02/21/25 21:34 IMPRESSION: 1: Unremarkable CT angiography brain and neck. <Sigifredo Kruger MD - Last Filed: 02/22/25 04:22> Critical Care Time Critical Care Time Critical Care Time: No <Regine Kilpatrick PA-C - Last Filed: 02/22/25 10:25> Discharge Plan Discharge Clinical Impression: Benign paroxysmal positional vertigo Qualifiers: Laterality: unspecified laterality Qualified Code(s): H81.10 - Benign paroxysmal vertigo, unspecified ear <Regine Kilpatrick PA-C - Last Filed: 02/22/25 10:25> Patient Disposition: Home <Regine Kilpatrick PA-C - Last Filed: 02/22/25 10:25> Condition: Stable <Regine Kilpatrick PA-C - Last Filed: 02/22/25 10:25> Instructions: Antibiotic Form, Vertigo (ED) <Regine Kilpatrick PA-C - Last Filed: 02/22/25 10:25> Additional Instructions: Meclizine as needed for vertigo control. Have close follow-up with your primary care physician. If you have any worsening symptoms then please call or return to the emergency department. <Regine Kilpatrick PA-C - Last Filed: 02/22/25 10:25> Patient Language: Ukrainian <Regine Kilpatrick PA-C - Last Filed: 02/22/25 10:25> Prescriptions: New meclizine 25 mg tablet 25 mg PO BID PRN (Reason: dizziness) 7 Days Qty: 14 0RF No Action rosuvastatin 5 mg tablet 5 mg PO DAILY Advair HFA 115-21 mcg/actuation HFA aerosol inhaler 1 puff INHALATION PRN PRN (Reason: difficulty breathing) ipratropium bromide 0.03 % spray,non-aerosol 2 spray NASAL TID PRN (Reason: nasal drainage) Qty: 30 0RF Rx Instructions: administer into each nostril omeprazole 20 mg capsule,delayed release(DR/EC) 20 mg PO DAILY escitalopram oxalate [Lexapro] 10 mg tablet 10 mg PO DAILY tamoxifen 20 mg tablet 20 mg PO DAILY albuterol sulfate 90 mcg/actuation HFA aerosol inhaler 1 - 2 puff inhalation Q4-6H PRN (Reason: shortness of breath or wheezing) Qty: 8.5 2RF naproxen 375 mg tablet 375 mg PO BID Qty: 14 0RF <Regine Kilpatrick PA-C - Last Filed: 02/22/25 10:25> Follow-up/Referrals: Jame,MICHAEL Zimmer [Primary Care Provider, Unknown] <Regine Kilpatrick PA-C - Last Filed: 02/22/25 10:25>
--- NOTE | 2025-02-21 18:55 | ECG_ITS ---
Test Date: 2025-02-21 19:02:29 Measurements Intervals David Rate: 61 P: 22 WA: 162 QRS: -45 QRSD: 94 T: 39 QT: 424 QTc: 428 Interpretive Statements SINUS RHYTHM LEFT AXIS DEVIATION LOW QRS VOLTAGE IN PRECORDIAL LEADS POSSIBLE ANTERIOR MYOCARDIAL INFARCTION , OF INDETERMINATE AGE CONSIDER INFERIOR INFARCT, AGE INDETERMINATE BORDERLINE T WAVE ABNORMALITY- ANTERIOR LEAD BASELINE WANDER- V1 No previous ECG available for comparison Electronically Signed On 02-21-2025 19:06:59 CDT by Mariano Valles D.O.
[2025-02-21 19:14] LABS: Hematocrit 42.1 % (37.0-47.0); Hemoglobin 13.8 g/dL (12.0-15.0); Immature Granulocyte Percent A 0.3 % (0-0.5); Lymphocytes Absolute Auto 3.07 K/mm3 (0.9-3.2); Mean Corpuscular HGB Conc 32.8 g/dl (32-36); Mean Corpuscular Hemoglobin 29.6 pg (26-34); Mean Corpuscular Volume 90.1 fl (80-100); Nucleated Red Blood Cells Absolute Auto 0.000 K/mm3 (0.0-0.012); Nucleated Red Blood Cells Perc 0.0 % (0.0-0.2); Platelet Count Result 167 k/mm3 (150-375); Red Blood Count 4.67 M/mm3 (4.2-5.4); White Blood Count 7.5 K/mm3 (4.5-10.0)
[2025-02-21 19:20] LABS: Add Urine Microscopic? YES; Appearance Urine Clear (Clear); Glucose Urine UA Negative (Negative); Leukocyte Esterase Ur Trace LEU/UL (Negative); Nitrate Urine Negative (Negative); Non Pathogenic Casts 0-2; Specific Grav Ur 1.007 (1.001-1.035)
[2025-02-21 19:28] LABS: Alanine Aminotransferase 17 U/L (6-35); Albumin Level 4.0 g/dL (3.5-5.1); Alkaline Phosphatase 91 U/L (38-126); Anion Gap 9 mmol/L (4-12); Aspartate Amino Transferase 27 U/L (14-36); Bilirubin,Total 0.4 mg/dL (0.2-1.3); Blood Urea Nitrogen 14 mg/dL (7-17); Calcium 9.2 mg/dL (8.4-10.2); Carbon Dioxide 23 mmol/L (22-30); Chloride 106 mmol/L (98-107); Estimated CRCL calculation 58 ml/min; Estimated Glomerular Filt Rate > 60; Glucose 96 mg/dL (65-110); Potassium 4.2 mmol/L (3.4-5.0); Sodium 138 mmol/L (137-145); Total Protein 7.0 g/dL (6.3-8.2)
[2025-02-21 20:30] VITALS: PULSE 55
--- OUTSIDE RECORDS SUMMARY | 2025-02-21 20:45 | XMS_ITS | Clinical Summary ---
Author Organization [facility] Address [address] [place] [address] Care Team Providers Care Dairy Quality Assurance Officer Name Role Phone Mesha Kilgore PA-C Primary Care Provider [phone] Stan Mcconnell MD Unavailable [phone] Source Comments [facility],non-owned Affiliates and Associated Physician Practices is amultiple site organization consisting of ambulatory clinics and hospital sitesin [place], [place], [place] and [place]. This disclosure is being madepursuant to the Care Everywhere program and may not contain all information available regarding this patient. Last updated 18.[facility] Allergies Active Allergy Reactions Criticality Noted Date [...] complication Overview (11/05/2018): Overview: Dr. Aldana at [place] Last Assessment & Plan: Continue Advair and treat allergies. Mixed hyperlipidemia 10/19/2018 Moderate episode of recurrent major depressive d isorder 10/19/2018 CARLEE on CPAP 10/19/2018 Overview (11/05/2018): Overview: Dr. Aldana at [place] Primary osteoarthritis of both knees 05/06/2018 Idiopathic [...] this topic Medical Devices Implanted Type Area Social Security Specialist Device Identifier Shelf Expiration Date Model / Serial / Lot Cmnt Bone Djo Srg Cblt 40gm Hvisc Strl Implanted:Qty: 1 on 06/13/2019 by Harshal Quarles MD at [facility] Left: Knee [employer] 08/26/2020 600-15-000 / / [id number] Tray Tib 67mm Kn Cocr I Beam Implanted:Qty: 1 on 06/13/2019 by Harshal Quarles MD at [facility] Left: Knee [employer] 09/06/2028 [id number] / / [id number] Cmpnt Ptlr 28mm 1 Pg Wire Ascnt Arcm Kn Implanted:Qty: 1 on 06/13/2019 by Harshal Quarles MD at [facility] Left: Knee [employer] 05/20/2024-884353 / / [id number] Cmpnt Fem Kn Lt Cr Cmnt Prm Vngrd Intlk Implanted:Qty: 1 on 06/13/2019 by Harshal Quarles MD at [facility] Left: Knee [employer] 04/13/2029 [id number] / / [id number] Brng [id number] Vngrd Arcm Kn Ant Stab Implanted:Qty: 1 on 06/13/2019 by Harshal Quarles MD at [facility] Left: Knee [employer] 01/28/2024 [id number] / / [id number] Brng [id number] Vngrd Arcm Kn Ant Stab Implanted:Qty: 1 on 12/12/2019 by Harshal Quarles MD at [facility] Right: Knee [employer] 09/02/2024 [id number] / / [id number] Cmnt Bone Djo Srg Cblt 40gm Hvisc Strl Implanted:Qty: 1 on 12/12/2019 by Harshal Quarles MD at [facility] Right: Knee [employer] 05/04/2020 600-15-000 / / [id number] Cmpnt Ptlr 28mm 1 Pg Wire Ascnt Arcm Kn Implanted:Qty: 1 on 12/12/2019 by Harshla Quarles MD at [facility] Right: Knee [employer] 08/10/2024 [id number] / / [id number] Tray Tib 67mm Kn Cocr I Beam Implanted:Qty: 1 on 12/12/2019 by Harshal Quarles MD at [facility] Right: Knee [employer] 05/15/2029 [id number] / / [id number] Cmpnt Fem Kn Rt Cr Cmnt Prm Vngrd Intlk Implanted:Qty: 1 on 12/12/2019 by Harshal Quarles MD at [facility] Right: Knee [employer] 07/08/2029 [id number] / / [id number] Procedures Procedure Name Priority Date/Time Associated Diagnosis [...] >60 mL/min/1.7 3m2 12/13/2019 4:56 AM CDT [facility] Blood BLOOD SPECIMEN / Unknown Venipuncture / Unknown 12/13/2019 4:08 AM CDT 12/13/2019 4:15 AM CDT us Harshal Quarles MD LAB - CHEMISTRY ORDERABLES Fi nal Result [facility] [address] [place] [address] from Last 3 Months or Most Recently Relevant to Health Maintenance Insurance MEDICARE [employer] Advance Directives * Full Code (Latest Code Status on File) Date Activated Date Inactivated Comments 12/12/2019 11:43 AM 12/13/2019 2:33 PM * Full Code Date Activated Date Inactivated Comments 06/13/2019 3:27 PM 06/15/2019 12:35 PM Care Teams Dairy Quality Assurance Officer Relationship Specialty Start Date End Date Mesha Kilgore PA-C PCP - General Physician Industrial Roofer Helper 11/05/18 Stan Mcconnell MD [address] [facility] [address] [place] [id number] Cardiovascular Disease 06/08/19
--- OUTSIDE RECORDS SUMMARY | 2025-02-21 20:45 | XMS_ITS | Clinical Summary ---
Author Organization [facility] [address] [facility] Address [address] [place] [address] Care Team Providers Care Hide Dyer Name Role Phone Mesha Kilgore Primary Care Provider [phone] Stan Mcconnell MD Unavailable [phone] Sylvia Gunn MD Unavailable [phone] Lorene Pamla MD PhD Unavailable [phone] Allergies Active Allergy Reactions Criticality Noted Date [...] 1 tablet (1,000 Units total) by mouth slate worker before breakfast Active Advair HFA 115-21 mcg/actuation [...] 06/07 Assessment & Plan (06/07/2024 2:15 PM NURSERY TECHNICIAN): Encouraged healthy lifestyle, good nutrition and exercise. Encouraged Calcium and Vitamin D and weight bearing exercise for bone health. Reviewed immunizations. Reviewed age appropirate screenings. Medicare Wellness Documentation is completed within the chart Radiotherapy follow-up examination 10/29/2023 BMI 31.0-31.9,adult 06/10/2023 Assessment & Plan (06/07/2024 8:44 AM NURSERY TECHNICIAN): BMI Follow-up includes: Discussed diet and exercising counseling. Assessment & Plan (10/11/2023 11:21 PM CDT): Discussed the patient's BMI. The BMI is above average. BMI management plan is completed. BMI Follow-up includes: nutrition counseling, exercise counseling and education provided. Assessment & Plan (06/10/2023 8:38 AM NURSERY TECHNICIAN): Discussed the patient's BMI. The BMI is [...] provided. Assessment & Plan (06/07/2024 8:44 AM NURSERY TECHNICIAN): BMI Follow-up includes: Discussed diet and exercising counseling. Assessment & Plan (10/11/2023 11:20 PM CDT): Discussed the patient's BMI. The BMI is above average. BMI management plan is completed. BMI Follow-up includes: nutrition counseling, exercise counseling and education provided. Assessment & Plan (06/10/2023 8:38 AM NURSERY TECHNICIAN): Discussed the patient's BMI. The BMI is above average. BMI management plan is completed. BMI Follow-up includes: nutrition counseling, exercise counseling and education provided. Assessment & Plan (12/22/2022 9:14 AM CDT): Discussed the patient's BMI. The BMI is above average. BMI management plan is completed. BMI Follow-up includes: nutrition counseling, exercise counseling and education provided. Menopause 12/22/2022 Assessment & Plan (06/10/2023 9:57 AM NURSERY TECHNICIAN): Check DEXA Assessment & Plan (12/22/2022 6:55 PM CDT): Check DEXA Fatigue 12/22/2022 Assessment & Plan (06/07/2024 2:15 PM NURSERY TECHNICIAN): Probably multifactorial. Check labs and followup to re-evaluate Assessment & Plan (10/11/2023 11:21 PM CDT): Probably multifactorial. Check labs and followup to re-evaluate Assessment & Plan (06/10/2023 9:58 AM NURSERY TECHNICIAN): Probably multifactorial. Check labs and followup to [...] 06/23 Assessment & Plan (06/07/2024 2:15 PM NURSERY TECHNICIAN): Patient tried oxybutynin for her symptoms and [...] dosing. Assessment & Plan (06/30/2022 8:05 PM NURSERY TECHNICIAN): This is a significant, separately identifiable problem [...] breast 10/18/2021 Personal history of irradiation 10/18/2021 custodial (current) use of s elective estrogen receptor [...] Staging:Pathologic:Stage 0(pTis (DCIS), cN0, cM0, G2, ER+, IN: Not Assessed, HER2: Not Assessed) - Signed by Lorene Palma MD PhD on 08/30/2021 Assessment & Plan (06/07/2024 2:14 PM NURSERY TECHNICIAN): Continue per Oncology. She is on approximately the 3rd year of tamoxifen out of 5. Tolerating well Assessment & Plan (10/11/2023 11:18 PM CDT): Continue per Dr. Angeles. She is on the 2nd year of 5 with her tamoxifen. Assessment & Plan (06/10/2023 9:56 AM NURSERY TECHNICIAN): Patient with DCIS right breast. Continue per at [facility]. Continue with tamoxifen. Assessment & Plan (12/22/2022 6:53 PM CDT): Patient with DCIS breast Continuing with tamoxifen and tolerating well Assessment & Plan (09/25/2021 8:09 AM CDT): Continue per Dr. Gunn. Just finished a course of radiation and will be starting tamoxifen in the next few weeks. Assessment & Plan (07/05/2021 12:14 PM NURSERY TECHNICIAN): 05/2021 - Dr. Angeles continue per her [...] 09/11/2019 Assessment & Plan (07/05/2021 12:16 PM NURSERY TECHNICIAN): Continue to monitor electrolytes. Seems to be [...] 05/23/2019 Assessment & Plan (06/07/2024 2:15 PM NURSERY TECHNICIAN): Pre-diabetes/hyperglycemia is a precursor to Dm. Stressed [...] diabetes. Assessment & Plan (06/10/2023 9:56 AM NURSERY TECHNICIAN): Pre-diabetes/hyperglycemia is a precursor to Dm. Stressed [...] diabetes. Assessment & Plan (06/30/2022 8:03 PM NURSERY TECHNICIAN): Pre-diabetes/hyperglycemia is a precursor to Dm. Stressed [...] diabetes. Assessment & Plan (07/05/2021 12:16 PM NURSERY TECHNICIAN): Pre-diabetes/hyperglycemia is a precursor to Dm. Stressed importance of working on diet (decrease your simple sugars and one carbohydrate with each meal) and increase you exercise to achieve weight loss and this will help prevent you from progressing to diabetes. Assessment & Plan (09/05/2020 8:54 PM NURSERY TECHNICIAN): Pre-diabetes is a precursor to Dm. Stressed [...] monitor Assessment & Plan (05/23/2019 2:40 PM NURSERY TECHNICIAN): Pre-diabetes is a precursor to Dm. Stressed importance of working on diet (decrease your simple sugars and one carbohydrate with each meal) and increase you exercise to achieve weight loss and this will help prevent you from progressing to diabetes. Gastroesophageal reflux disease without esophagi tis 05/23/2019 Assessment & Plan (06/07/2024 2:14 PM NURSERY TECHNICIAN): Continue PPI Assessment & Plan (10/11/2023 11:18 PM CDT): Continue PPI p.r.n. Assessment & Plan (06/10/2023 9:56 AM NURSERY TECHNICIAN): Continue PPI. If symptoms persist may consider increasing to b.i.d. Assessment & Plan (12/22/2022 6:53 PM CDT): Stable with PPI Assessment & Plan (06/30/2022 8:08 PM NURSERY TECHNICIAN): Continue PPI p.r.n. Assessment & Plan (03/31/2022 10:08 AM CDT): Continue PPI Assessment & Plan (09/25/2021 8:08 AM CDT): Stable with PPI Assessment & Plan (07/05/2021 12:16 PM NURSERY TECHNICIAN): Continue PPI Assessment & Plan (02/13/2021 10:30 AM CDT): Continue PPI Assessment & Plan (09/05/2020 8:53 PM NURSERY TECHNICIAN): On PPI Assessment & Plan (02/29/2020 7:58 AM CDT): Continue PPI Assessment & Plan (05/23/2019 2:42 PM NURSERY TECHNICIAN): Break thru sxs if she eats certain foods. Encouraged to restart PPI daily and will monitor for resolution of sxs and then taper back down. Mixed hyperlipidemia 10/19/2018 Assessment & Plan (06/07/2024 2:15 PM NURSERY TECHNICIAN): Encouraged patient to follow low fat/low chol [...] 5 Assessment & Plan (06/10/2023 9:57 AM NURSERY TECHNICIAN): Encouraged patient to follow low fat/low chol [...] plan Assessment & Plan (06/30/2022 8:03 PM NURSERY TECHNICIAN): Encouraged patient to follow low fat/low chol [...] results. Assessment & Plan (07/05/2021 12:14 PM NURSERY TECHNICIAN): Encouraged patient to follow fat/low chol diet [...] months. Assessment & Plan (09/05/2020 8:54 PM NURSERY TECHNICIAN): Encouraged patient to follow fat/low chol diet like the Mediterranean diet. Increase good fats in the diet. Increase exercise. Monitor labs as needed. Assessment & Plan (02/29/2020 7:58 AM CDT): Encouraged patient to continue low fat/low chol diet. Continue exercise. Increase good fats in the diet. Monitor labs as needed. Diet controlled Assessment & Plan (05/23/2019 2:35 PM NURSERY TECHNICIAN): Encouraged patient to continue low fat/low chol diet. Continue exercise. Increase good fats in the diet. Monitor labs as needed. CARLEE on CPAP 10/19/2018 Overview (10/19/2018): Dr. Aldana at [place] Assessment & Plan (06/07/2024 2:13 PM NURSERY TECHNICIAN): Continue per Dr. Aldana at [facility] using her CPAP nightly as instructed Continue with Advair and albuterol p.r.n.. Using Flonase for allergies along with an antihistamine Assessment & Plan (10/11/2023 11:17 PM CDT): Continue with CPAP. Managed by [place] [facility] group Assessment & Plan (06/10/2023 9:57 AM NURSERY TECHNICIAN): Managed by Dr. Grace at [place]. Continue with CPAP Assessment & Plan (12/22/2022 6:49 PM CDT): Continue per Dr. Aldana at [facility]. Continue with CPAP Assessment & Plan (06/30/2022 8:03 PM NURSERY TECHNICIAN): Continue CPAP Assessment & Plan (03/31/2022 10:07 AM CDT): Continue CPAP Assessment & Plan (09/25/2021 8:07 AM CDT): Continue per Dr. Grace at [place]. Has only needed supplies in using nightly as instructed. Assessment & Plan (07/05/2021 12:15 PM NURSERY TECHNICIAN): Continue per at [place] states she is using nightly Assessment & Plan (02/13/2021 10:32 AM CDT): Using nightly. Continue per Dr. Grace at [place] Assessment & Plan (09/05/2020 8:53 PM NURSERY TECHNICIAN): Continue CPAP Assessment & Plan (02/29/2020 7:57 AM CDT): Managed by Dr. Grace at [place] Has all needed equipment Assessment & Plan (09/11/2019 7:27 PM CDT): Recommend f.u with pulmonology to see if settings are correct. Assessment & Plan (05/23/2019 2:35 PM NURSERY TECHNICIAN): Stable with CPAP. Using nightly. Encouraged to bring to hospital for procedure Mild intermittent asthma without complication Overview (10/19/2018): Dr. Aldana at [place] Assessment & Plan (06/07/2024 2:13 PM NURSERY TECHNICIAN): Continue per Dr. Aldana at [facility] using her CPAP [...] follow up with Dr. Grace pulmonology at [place] Assessment & Plan (07/05/2021 12:15 PM NURSERY TECHNICIAN): Continue per at [place] states she is using nightly Assessment & Plan (02/13/2021 10:31 AM CDT): Continue per Dr. Aldana at [place] Assessment & Plan (09/05/2020 8:53 PM NURSERY TECHNICIAN): Stable with advair/prn albuterol Managed by Dr. Arzate Assessment & Plan (02/29/2020 7:57 AM CDT): Stable without medication at this point. Has Advair to start if seasonal allergies kick it up Assessment & Plan (05/23/2019 2:34 PM NURSERY TECHNICIAN): Currently stable with Advair. Hasn't needed rescue Assessment & Plan (10/31/2018 11:29 PM CDT): Continue Advair and treat allergies. Moderate episode of recurrent major depressive d isorder 10/19/2018 Assessment & Plan (06/07/2024 2:14 PM NURSERY TECHNICIAN): Symptoms are stable with Lexapro 20 Assessment & Plan (10/11/2023 11:18 PM CDT): Continue Lexapro 20 Assessment & Plan (06/10/2023 9:57 AM NURSERY TECHNICIAN): Depression symptoms seem to be stable with the Lexapro 20 mg. She is had increased fatigue but think this is actually situational with increased activities. Will continue to monitor closely Assessment & Plan (12/22/2022 6:50 PM CDT): Stable with Lexapro. Assessment & Plan (06/30/2022 8:03 PM NURSERY TECHNICIAN): Continue Lexapro 10 S symptoms are stable [...] 10 Assessment & Plan (07/05/2021 12:16 PM NURSERY TECHNICIAN): Stable with Lexapro 10 mg Assessment & Plan (02/13/2021 10:30 AM CDT): Continue lexapro 10 Assessment & Plan (09/05/2020 8:54 PM NURSERY TECHNICIAN): Stable with Lexapro 10mg Assessment & Plan (02/29/2020 7:58 AM CDT): Stable with lexapro Assessment & Plan (05/23/2019 2:40 PM NURSERY TECHNICIAN): Stable with lexapro Resolved Problems Problem Noted Date Diagnosed Date Resolved Date Colon cancer screening 06/10/202310/05 Assessment & Plan (06/10/2023 9:58 AM NURSERY TECHNICIAN): Juan Manuel will be due in September. Order placed to kick out at that time Medicare annual wellness visit, subsequent 06/10/2023 10/06/2023 Assessment & Plan (06/10/2023 9:58 AM NURSERY TECHNICIAN): Encouraged healthy lifestyle, good nutrition and exercise. [...] 11/20/2022 Assessment & Plan (06/30/2022 8:07 PM NURSERY TECHNICIAN): Encouraged healthy lifestyle, good nutrition and exercise. [...] 09/25/2021 Assessment & Plan (07/05/2021 12:17 PM NURSERY TECHNICIAN): Probably multifactorial. Check labs and followup to re-evaluate Medicare annual wellness visit, subsequent 07/05/2021 09/25/2021 Assessment & Plan (07/05/2021 12:17 PM NURSERY TECHNICIAN): Insert Medicare wellness exam Breast cancer screening [...] 11/21/19 Assessment & Plan (06/30/2022 8:08 PM NURSERY TECHNICIAN): Discussed the patient's BMI. The BMI is [...] provided. Assessment & Plan (09/06/2020 7:28 AM NURSERY TECHNICIAN): Obesity is unchanged. Discussed the patient's BMI. The BMI is above average. BMI management plan is completed. BMI Follow-up includes: nutrition counseling, exercise counseling and education provided. Obesity (BMI 30-39.9) 09/06/20202022 Assessment & Plan (06/30/2022 8:09 PM NURSERY TECHNICIAN): Discussed the patient's BMI. The BMI is [...] provided. Assessment & Plan (06/19/2021 7:28 AM NURSERY TECHNICIAN): Obesity is unchanged. Discussed the patient's BMI. [...] provided. Assessment & Plan (09/06/2020 7:28 AM NURSERY TECHNICIAN): Obesity is unchanged. Discussed the patient's BMI. [...] 22 Assessment & Plan (06/19/2021 7:28 AM NURSERY TECHNICIAN): Obesity is unchanged. Discussed the patient's BMI. [...] provided. Assessment & Plan (05/23/2019 1:30 PM NURSERY TECHNICIAN): Obesity is unchanged. Discussed the patient's BMI. The BMI is above average. BMI management plan is completed. BMI Follow-up includes: nutrition counseling, exercise counseling and education provided. Encounter for pre-operative examination 05/23/2019 02/28/2020 Assessment & Plan (05/23/2019 2:40 PM NURSERY TECHNICIAN): Discussed with patient preoperative exam and EKG [...] 19 Assessment & Plan (05/23/2019 1:30 PM NURSERY TECHNICIAN): Obesity is unchanged. Discussed the patient's BMI. [...] Description 02/21/2025 5:00 PM CDT Office Visit [facility] at [address] [address] Ayesha Henderson NP Dizziness (Primary Dx); Intractable headache, unspecified chronicity pattern, unspecified headache type; Fatigue, unspecified type 01/19/2025 Telephone [facility] [address] [facility] [address] [place] [phone] Mesha Kilgore PA Med Refill 01/16/2025 Orders Only [facility] [address] [place] [address] 8 [place] [address] Azul Sanchez RN 12/13/2024 Results Follow-Up [facility] [address] [place] [address] 8 [place] [address] Petrona Santoro NP Screening Mammogram Bilateral W Dion 12/12/2024 11:59 AM CDT - 12/12/2024 11:59 PM CDT Hospital Encounter [facility] [address] [place] [address] 8 [place] [address] Ductal carcinoma in situ (DCIS) of right breast; Encounter for screening mammogram for malignant neoplasm of breast Discharge Disposition: Discharge to home or self care 12/12/2024 11:45 AM CDT Office Visit [facility] [address] [place] [address] 8 [place] [address] Petrona Santoro NP Ductal carcinoma in situ (DCIS) of right breast (Primary Dx); History of breast cancer; Encounter for screening mammogram for malignant neoplasm of breast 12/08/2024 8:20 AM CDT Ancillary Procedure [facility] at [address] [phone] Lumbar back pain 12/08/2024 Results Follow-Up [facility] [address] [place] [address] Mesha Kilgore PA XR Spine Lumbar Complete 4 Or More 12/08/[address] [place] [address] Mesha Kilgore PA 12/06/2024 8:30 AM CDT Office Visit [address] [place] [address] Mesha Kilgore PA Annual physical exam (Primary Dx); Pre-diabetes; Mixed hyperlipidemia; Lumbar back pain; CARLEE on CPAP; Mild intermittent asthma without complication; Gastroesophageal reflux disease without esophagitis; Moderate episode of recurrent major depressive disorder (HCC); Ductal carcinoma in situ (DCIS) of right breast; Obesity (BMI 30-39.9); BMI 32.0-32.9,adult 12/06/2024 Orders Only [facility] Floor [address] [place] [address] Petrona Santoro NP Personal history of malignant neoplasm of breast (Primary Dx); Ductal carcinoma in situ (DCIS) of right breast; Encounter for screening mammogram for malignant neoplasm of breast 11/23/2024 Results Follow-Up [address] [place] [phone] Mesha Kilgore PA CBC with auto differential, Comprehensive metabolic panel, Hemoglobin A1c, Additional followed-up results: 4 11/22/2024 9:45 AM CDT Lab [facility] at [address] [address] BMI 31.0-31.9,adult (Primary Dx); Pre-diabetes; Mixed hyperlipidemia; Fatigue 11/22/2024 9:37 AM CDT - 11/22/2024 11:59 PM CDT Hospital Encounter [address] [address] Fatigue, unspecified type; Mixed hyperlipidemia; Pre-diabetes Discharge [...] on file Legal Sex Female 6:55 AM NURSERY TECHNICIAN Gender Identity Not on file Sexual [...] history exists Medical Devices Implanted Type Area Scholastic Aptitude Test Grader Device Identifier Shelf Expiration Date Model / Serial / Lot Other - See Comments Other - see comments Bilateral : Knee Description:Please refer to Care Everywhere for implant information [employer] [id number] Magseed 18ga 7cm Marker Breast Biopsy - [id number] Implanted:Qty: 1 on 07/25/2021 at [facility] Explanted:07/07 (Quantity not on file) Right: Breast [employer] [id number] 12/03/2024 [id number] Procedures Procedure Name Priority Date/Time Associated Diagnosis [...] mg/dL Blood 02/21/2025 5:13 PM CDT us Ayseha Henderson NP POINT OF CARE TEST ORDERABLES [...] signed by Martinez JAVIER T: Report ID: [id number] Reading Location: [id number] Procedure Note Martinez Moy MD - 12/08/2024 [...] ALIGNMENT: Variable minimal to mild stair step [id number] on L1 through L3 on L4 in [...] signed by Martinez JAVIER T: Report ID: [id number] Reading Location: [place] [address] Mesha RODRIGUEZ IMG XR PROCEDURES Final Re sult * eGFR (11/22/2024 9:37 AM CDT) Pathologist [facility] eGFR 90 >=60 mL/min/1. 73 m2 Comment: [...] RODRIGUEZ LAB BLOOD ORDERABLES Final Result YESI [address] Department [place] [address] * Differential, auto (11/22/2024 9:37 AM CDT) Pathologist [facility] Neutrophil abs 2.20 1.50 - 6.50 K/cumm Imm gran abs 0.01 0.00 - 0.10 K/cumm [facility] Lymphocyte abs 2.21 0.80 - 3.30 K/cumm [facility] Monocyte abs 0.32 0.20 - 0.80 K/cumm [facility] Eosinophil abs 0.34 0.00 - 0.50 K/cumm [facility] Basophil abs 0.06 0.00 - 0.10 K/cumm [facility] Neutrophil pct 42.8 % [facility] Comment: Interpretive Data Percent cell count reference [...] Mesha RODRIGUEZ LAB BLOOD ORDERABLES Final Result [facility] [address] [address] Department [place] [address] * (ABNORMAL) CBC with auto differential (11/22/2024 9:37 AM CDT) WBC 5.14 3.80 - 9.90 K/cumm Hgb 14.5 11.9 - 15.5 g/dL [facility] Hct 46.7(H) 35.6 - 45.5 % [facility] Plt 177 150 - 400 K/cumm [facility] MPV 12.3 9.1 - 12.3 fL [facility] RBC 4.87 3.90 - 5.20 M/cumm [facility] MCV 95.9 81.3 - 96.4 fL [facility] MCH 29.8 27.1 - 33.3 pg [facility] MCHC 31.0(L) 32.3 - 35.7 g/dL [facility] RDW CV 13.2 11.1 - 14.9 % [facility] RDW SD 47.0 35.7 - 48.1 fL [facility] NRBC abs 0.00 0.00 - 0.01 K/cumm [facility] Blood 11/22/2024 9:37 AM CDT 11/22/2024 4:59 PM CDT Mesha RODRIGUEZ LAB BLOOD ORDERABLES Final Result Performing Organization Address City/[facility] Co de Phone Number [facility] [address] [address] [facility] [place] [address] * TSH (11/22/2024 9:37 AM CDT) Thyroid Stimulating Hormone 2.56 0.30 - 4.20 mcIUnit/mL Blood 11/22/2024 9:37 AM CDT 11/22/2024 4:59 PM CDT Mesha RODRIGUEZ LAB BLOOD ORDERABLES Final Result Performing Organization Address City/[facility] Co de Phone Number [facility] [address] [address] [place] [address] * (ABNORMAL) Hemoglobin A1c (11/22/2024 9:37 AM CDT) Hgb A1C 6.2(H) 4.0 - 5.6 % Estimated Average Glucose 131 mg/dL [facility] Comment: The ADA recommends reporting an estimated Average Glucose (eAG) with all Hemoglobin A1c results using the equation derived from a study of 507 normal and diabetic adults. Minority populations were underrepresented and children were not included. (Diabetes Care 31:5998-5526, 2008). The eAG is not equivalent to a fasting glucose. Blood 11/22/2024 9:37 AM CDT 11/22/2024 4:59 PM CDT Mesha RODRIGUEZ LAB BLOOD ORDERABLES Final Result [facility]I [address] [address] Department [place] [address] * Lipid panel (11/22/2024 9:37 AM CDT) [...] LAB BLOOD ORDERABLES Final Result [facility] RODRIGEZ [address] [address] [place] [place] [address] * Comprehensive metabolic panel (11/22/2024 9:37 AM [...] BLOOD ORDERABLES Final Result Performing Organization Address City/[facility]/ZIP Co de Phone Number YESI RODRIGEZ [address] [address] Department [place] [address] * Dexa Axial Skeleton Bone Density 1 or 2 Site (02/10/2024) SCRIBED DXA T-SCORE 0.1 SCRIBED DXA Z-SCORE 2.5 SCRIBED DXA BMD 1.054 Anatomical Region Laterality Modality Body N/A Radiographic Flaquita ging 02/10/2024 Mesha RODRIGUEZ IMG DXA PROCEDURES Final R esult * Stool DNA - Cologuard (09/21/2023 5:31 PM CDT) Stool DNA - Cologuard Negative Negative [facility] (CLIA #:[id number]) Comment: NEGATIVE TEST RESULT. A negative Cologuard [...] (Whitley Sánchez al, N Engl J Med 2014;370(14):5172-9942) The normal value (reference range) for this assay is negative. COLOGUARD RE-SCREENING RECOMMENDATION: Periodic colorectal cancer screening is an important part of preventive healthcare for asymptomatic individuals at average risk for colorectal cancer. Following a negative Cologuard result, the [place] [employer] Society and U.S. Multi-Society Task Force screening guidelines recommend a Cologuard re-screening interval of 3 years. References: [place] [employer] Guideline for Colorectal Cancer Screening: https://www.cancer.org/cancer/wuyan-cpstil-litxoi/pmufaqaxy-zpmmsakla-qrwdoap/ac s-rec ommendations.html.; Hayden DK, Mary Grace CR, Maddi JACOBSEN, Colorectal Cancer Screening: Recommendations for Physicians and Patients from the U.S. Multi-Society Task Force on Colorectal Cancer Screening , Am J Gastroenterology 2017; 112:7939-1995. TEST DESCRIPTION: Composite algorithmic analysis of stool [...] Lane. et al, N Engl J Med 2014;370(14):8606-9293.) Cologuard may produce a false negative or false positive result (no colorectal cancer or precancerous polyp present at colonoscopy follow up). A negative Cologuard test result does not guarantee the absence of CRC or advanced adenoma (pre-cancer). The current Cologuard screening interval is every 3 years. ([place] [employer] and U.S. Multi-Society Task Force). Cologuard performance data in a 10,000 patient pivotal study using colonoscopy as the reference method can be accessed at the following location: www.[employer].com/results. Additional description of the Cologuard test process, warnings and precautions can be found at www.cologBirchstreet Systemsrd.com. Stool 09/21/2023 5:31 PM CDT 09/23/2023 10:42 AM CDT Mesha RODRIGUEZ LAB BODY FLUIDS AND STOOLS ORDERABLES Final Result [facility] (CLIA #:[id number]) [address] [place] [address] * Hepatitis panel, acute (01/25/2021 7:30 AM CDT) Hep A IgM NON-REACTI VE NON-REACT LAURA [facility] Comment: For additional information, please refer to http://[employer].AnonymAsk/faq/SLT867 (This link is being provided for informational/ [...] a test for HCV RNA (test code 64778) is suggested. For additional information please refer to http://[employer].AnonymAsk/faq/ZIS02q6 (This link is being provided for informational/ educational purposes only.) Blood specimen (specimen) 01/25/2021 7:30 AM CDT 01/25/2021 8:06 AM CDT Mesha [facility] MICROBIOLOGY - GENERAL ORDERABLES Final Result [employer] [id number] [phone] from Last 3 Months or Most Recently Relevant to Health Maintenance Insurance MEDICARE RESEARCH T MEDICARE T [place] [address] [employer] MEDICARE [facility] MEDICARE Advance Directives For more information, please contact: [phone] Documents on File Type Date Recorded Patient Hall Director Expl anation ADVANCE DIRECTIVE 09/27/2021 6:06 AM POLST - Phys Order for PT Preferences Care Teams Hide Dyer Relationship Specialty Start Date End Date Mesha Kilgore PA [address] [address] PCP - General Internal Medicine 10/19/18 Stan Mcconnell MD [address] [facility] [address] [place] [address] [address] Scraper Meat Cardiology 06/08/19 Sylvia Gunn MD [address] [facility] [place] [address] [place] [address] Surgeon Surgical Oncology 08/05/21 Lorene Palma MD PhD [address] [facility] [address] [place] [address] Radiation Oncologist Radiation Oncology 08/30/21
--- OUTSIDE RECORDS SUMMARY | 2025-02-21 20:45 | XMS_ITS ---
Author Organization [facility] [place] [address] [place] [address] Care Team Providers Care Cleaning Supervisor Name Role Phone Mesha Kilgore Primary Care Provider [phone] Stan Mcconnell MD Unavailable [phone] Sylvia Gunn MD Unavailable [phone] Lorene Palma MD PhD Unavailable [phone] Active Problems Problem Noted Date Diagnosed Date Medicare annual wellness visit, subsequent 06/07 Assessment & Plan (06/07/2024 2:15 PM RIVERBOAT CAPTAIN): Encouraged healthy lifestyle, good nutrition and exercise. Encouraged Calcium and Vitamin D and weight bearing exercise for bone health. Reviewed immunizations. Reviewed age appropirate screenings. Medicare Wellness Documentation is completed within the chart Radiotherapy follow-up examination 10/29/2023 BMI 31.0-31.9,adult 06/10/2023 Assessment & Plan (06/07/2024 8:44 AM RIVERBOAT CAPTAIN): BMI Follow-up includes: Discussed diet and exercising counseling. Assessment & Plan (10/11/2023 11:21 PM CDT): Discussed the patient's BMI. The BMI is above average. BMI management plan is completed. BMI Follow-up includes: nutrition counseling, exercise counseling and education provided. Assessment & Plan (06/10/2023 8:38 AM RIVERBOAT CAPTAIN): Discussed the patient's BMI. The BMI is [...] provided. Assessment & Plan (06/07/2024 8:44 AM RIVERBOAT CAPTAIN): BMI Follow-up includes: Discussed diet and exercising counseling. Assessment & Plan (10/11/2023 11:20 PM CDT): Discussed the patient's BMI. The BMI is above average. BMI management plan is completed. BMI Follow-up includes: nutrition counseling, exercise counseling and education provided. Assessment & Plan (06/10/2023 8:38 AM RIVERBOAT CAPTAIN): Discussed the patient's BMI. The BMI is above average. BMI management plan is completed. BMI Follow-up includes: nutrition counseling, exercise counseling and education provided. Assessment & Plan (12/22/2022 9:14 AM CDT): Discussed the patient's BMI. The BMI is above average. BMI management plan is completed. BMI Follow-up includes: nutrition counseling, exercise counseling and education provided. Menopause 12/22/2022 Assessment & Plan (06/10/2023 9:57 AM RIVERBOAT CAPTAIN): Check DEXA Assessment & Plan (12/22/2022 6:55 PM CDT): Check DEXA Fatigue 12/22/2022 Assessment & Plan (06/07/2024 2:15 PM RIVERBOAT CAPTAIN): Probably multifactorial. Check labs and followup to re-evaluate Assessment & Plan (10/11/2023 11:21 PM CDT): Probably multifactorial. Check labs and followup to re-evaluate Assessment & Plan (06/10/2023 9:58 AM RIVERBOAT CAPTAIN): Probably multifactorial. Check labs and followup to [...] 06/23 Assessment & Plan (06/07/2024 2:15 PM RIVERBOAT CAPTAIN): Patient tried oxybutynin for her symptoms and [...] dosing. 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 She is on approximately the 3rd year of tamoxifen out of 5. Tolerating well Assessment & Plan (10/11/2023 11:18 PM CDT): Continue per Dr. Angeles. She is on the 2nd year of 5 with her tamoxifen. Assessment & Plan (06/10/2023 9:56 AM RIVERBOAT CAPTAIN): Patient with DCIS right breast. Continue per at [facility]. Continue with tamoxifen. Assessment & Plan (12/22/2022 6:53 PM CDT): Patient with DCIS breast Continuing with tamoxifen and tolerating well Assessment & Plan (09/25/2021 8:09 AM CDT): Continue per Dr. Gunn. Just finished a course of radiation and will be starting tamoxifen in the next few weeks. Assessment & Plan (07/05/2021 12:14 PM RIVERBOAT CAPTAIN): 05/2021 - Dr. Angeles continue per her [...] 09/11/2019 Assessment & Plan (07/05/2021 12:16 PM RIVERBOAT CAPTAIN): Continue to monitor electrolytes. Seems to be [...] 05/23/2019 Assessment & Plan (06/07/2024 2:15 PM RIVERBOAT CAPTAIN): Pre-diabetes/hyperglycemia is a precursor to Dm. Stressed [...] diabetes. Assessment & Plan (06/10/2023 9:56 AM RIVERBOAT CAPTAIN): Pre-diabetes/hyperglycemia is a precursor to Dm. Stressed [...] diabetes. Assessment & Plan (06/30/2022 8:03 PM RIVERBOAT CAPTAIN): Pre-diabetes/hyperglycemia is a precursor to Dm. Stressed [...] diabetes. Assessment & Plan (07/05/2021 12:16 PM RIVERBOAT CAPTAIN): Pre-diabetes/hyperglycemia is a precursor to Dm. Stressed importance of working on diet (decrease your simple sugars and one carbohydrate with each meal) and increase you exercise to achieve weight loss and this will help prevent you from progressing to diabetes. Assessment & Plan (09/05/2020 8:54 PM RIVERBOAT CAPTAIN): Pre-diabetes is a precursor to Dm. Stressed [...] monitor Assessment & Plan (05/23/2019 2:40 PM RIVERBOAT CAPTAIN): Pre-diabetes is a precursor to Dm. Stressed importance of working on diet (decrease your simple sugars and one carbohydrate with each meal) and increase you exercise to achieve weight loss and this will help prevent you from progressing to diabetes. Gastroesophageal reflux disease without esophagi tis 05/23/2019 Assessment & Plan (06/07/2024 2:14 PM RIVERBOAT CAPTAIN): Continue PPI Assessment & Plan (10/11/2023 11:18 PM CDT): Continue PPI p.r.n. Assessment & Plan (06/10/2023 9:56 AM RIVERBOAT CAPTAIN): Continue PPI. If symptoms persist may consider increasing to b.i.d. Assessment & Plan (12/22/2022 6:53 PM CDT): Stable with PPI Assessment & Plan (06/30/2022 8:08 PM RIVERBOAT CAPTAIN): Continue PPI p.r.n. Assessment & Plan (03/31/2022 10:08 AM CDT): Continue PPI Assessment & Plan (09/25/2021 8:08 AM CDT): Stable with PPI Assessment & Plan (07/05/2021 12:16 PM RIVERBOAT CAPTAIN): Continue PPI Assessment & Plan (02/13/2021 10:30 AM CDT): Continue PPI Assessment & Plan (09/05/2020 8:53 PM RIVERBOAT CAPTAIN): On PPI Assessment & Plan (02/29/2020 7:58 AM CDT): Continue PPI Assessment & Plan (05/23/2019 2:42 PM RIVERBOAT CAPTAIN): Break thru sxs if she eats certain foods. Encouraged to restart PPI daily and will monitor for resolution of sxs and then taper back down. Mixed hyperlipidemia 10/19/2018 Assessment & Plan (06/07/2024 2:15 PM RIVERBOAT CAPTAIN): Encouraged patient to follow low fat/low chol [...] 5 Assessment & Plan (06/10/2023 9:57 AM RIVERBOAT CAPTAIN): Encouraged patient to follow low fat/low chol [...] plan Assessment & Plan (06/30/2022 8:03 PM RIVERBOAT CAPTAIN): Encouraged patient to follow low fat/low chol [...] results. Assessment & Plan (07/05/2021 12:14 PM RIVERBOAT CAPTAIN): Encouraged patient to follow fat/low chol diet [...] months. Assessment & Plan (09/05/2020 8:54 PM RIVERBOAT CAPTAIN): Encouraged patient to follow fat/low chol diet like the Mediterranean diet. Increase good fats in the diet. Increase exercise. Monitor labs as needed. Assessment & Plan (02/29/2020 7:58 AM CDT): Encouraged patient to continue low fat/low chol diet. Continue exercise. Increase good fats in the diet. Monitor labs as needed. Diet controlled Assessment & Plan (05/23/2019 2:35 PM RIVERBOAT CAPTAIN): Encouraged patient to continue low fat/low chol diet. Continue exercise. Increase good fats in the diet. Monitor labs as needed. CARLEE on CPAP 10/19/2018 Overview (10/19/2018): Dr. Aldana at [place] Assessment & Plan (06/07/2024 2:13 PM RIVERBOAT CAPTAIN): Continue per Dr. Aldana at [facility] using her CPAP nightly as instructed Continue with Advair and albuterol p.r.n.. Using Flonase for allergies along with an antihistamine Assessment & Plan (10/11/2023 11:17 PM CDT): Continue with CPAP. Managed by [place] [facility] group Assessment & Plan (06/10/2023 9:57 AM RIVERBOAT CAPTAIN): Managed by Dr. Grace at [place]. Continue with CPAP Assessment & Plan (12/22/2022 6:49 PM CDT): Continue per Dr. Aldana at [facility]. Continue with CPAP Assessment & Plan (06/30/2022 8:03 PM RIVERBOAT CAPTAIN): Continue CPAP Assessment & Plan (03/31/2022 10:07 AM CDT): Continue CPAP Assessment & Plan (09/25/2021 8:07 AM CDT): Continue per Dr. Grace at [place]. Has only needed supplies in using nightly as instructed. Assessment & Plan (07/05/2021 12:15 PM RIVERBOAT CAPTAIN): Continue per at [place] states she is using nightly Assessment & Plan (02/13/2021 10:32 AM CDT): Using nightly. Continue per Dr. Grace at [place] Assessment & Plan (09/05/2020 8:53 PM RIVERBOAT CAPTAIN): Continue CPAP Assessment & Plan (02/29/2020 7:57 AM CDT): Managed by Dr. Grace at [place] Has all needed equipment Assessment & Plan (09/11/2019 7:27 PM CDT): Recommend f.u with pulmonology to see if settings are correct. Assessment & Plan (05/23/2019 2:35 PM RIVERBOAT CAPTAIN): Stable with CPAP. Using nightly. Encouraged to bring to hospital for procedure Mild intermittent asthma without complication Overview (10/19/2018): Dr. Aldana at [place] Assessment & Plan (06/07/2024 2:13 PM RIVERBOAT CAPTAIN): Continue per Dr. Aldana at [facility] using her CPAP nightly [...] follow up with Dr. Grace pulmonology at [place] Assessment & Plan (07/05/2021 12:15 PM RIVERBOAT CAPTAIN): Continue per at [place] states she is using nightly Assessment & Plan (02/13/2021 10:31 AM CDT): Continue per Dr. Aldana at [place] Assessment & Plan (09/05/2020 8:53 PM RIVERBOAT CAPTAIN): Stable with advair/prn albuterol Managed by Dr. Arzate Assessment & Plan (02/29/2020 7:57 AM CDT): Stable without medication at this point. Has Advair to start if seasonal allergies kick it up Assessment & Plan (05/23/2019 2:34 PM RIVERBOAT CAPTAIN): Currently stable with Advair. Hasn't needed rescue Assessment & Plan (10/31/2018 11:29 PM CDT): Continue Advair and treat allergies. Moderate episode of recurrent major depressive d isorder 10/19/2018 Assessment & Plan (06/07/2024 2:14 PM RIVERBOAT CAPTAIN): Symptoms are stable with Lexapro 20 Assessment & Plan (10/11/2023 11:18 PM CDT): Continue Lexapro 20 Assessment & Plan (06/10/2023 9:57 AM RIVERBOAT CAPTAIN): Depression symptoms seem to be stable with the Lexapro 20 mg. She is had increased fatigue but think this is actually situational with increased activities. Will continue to monitor closely Assessment & Plan (12/22/2022 6:50 PM CDT): Stable with Lexapro. Assessment & Plan (06/30/2022 8:03 PM RIVERBOAT CAPTAIN): Continue Lexapro 10 S symptoms are stable [...] 10 Assessment & Plan (07/05/2021 12:16 PM RIVERBOAT CAPTAIN): Stable with Lexapro 10 mg Assessment & Plan (02/13/2021 10:30 AM CDT): Continue lexapro 10 Assessment & Plan (09/05/2020 8:54 PM RIVERBOAT CAPTAIN): Stable with Lexapro 10mg Assessment & Plan (02/29/2020 7:58 AM CDT): Stable with lexapro Assessment & Plan (05/23/2019 2:40 PM RIVERBOAT CAPTAIN): Stable with lexapro Current Treatment and Therapy [...] 06/10/202310/05 Assessment & Plan (06/10/2023 9:58 AM RIVERBOAT CAPTAIN): Cologuard will be due in September. Order placed to kick out at that time Medicare annual wellness visit, subsequent 06/10/2023 10/06/2023 Assessment & Plan (06/10/2023 9:58 AM RIVERBOAT CAPTAIN): Encouraged healthy lifestyle, good nutrition and exercise. [...] 11/20/2022 Assessment & Plan (06/30/2022 8:07 PM RIVERBOAT CAPTAIN): Encouraged healthy lifestyle, good nutrition and exercise. [...] 09/25/2021 Assessment & Plan (07/05/2021 12:17 PM RIVERBOAT CAPTAIN): Probably multifactorial. Check labs and followup to re-evaluate Medicare annual wellness visit, subsequent 07/05/2021 09/25/2021 Assessment & Plan (07/05/2021 12:17 PM RIVERBOAT CAPTAIN): Insert Medicare wellness exam Breast cancer screening [...] 23 Assessment & Plan (06/30/2022 8:08 PM RIVERBOAT CAPTAIN): Discussed the patient's BMI. The BMI is [...] provided. Assessment & Plan (09/06/2020 7:28 AM RIVERBOAT CAPTAIN): Obesity is unchanged. Discussed the patient's BMI. The BMI is above average. BMI management plan is completed. BMI Follow-up includes: nutrition counseling, exercise counseling and education provided. Obesity (BMI 30-39.9) 09/06/20202022 Assessment & Plan (06/30/2022 8:09 PM RIVERBOAT CAPTAIN): Discussed the patient's BMI. The BMI is [...] provided. Assessment & Plan (06/19/2021 7:28 AM RIVERBOAT CAPTAIN): Obesity is unchanged. Discussed the patient's BMI. [...] provided. Assessment & Plan (09/06/2020 7:28 AM RIVERBOAT CAPTAIN): Obesity is unchanged. Discussed the patient's BMI. [...] 22 Assessment & Plan (06/19/2021 7:28 AM RIVERBOAT CAPTAIN): Obesity is unchanged. Discussed the patient's BMI. [...] provided. Assessment & Plan (05/23/2019 1:30 PM RIVERBOAT CAPTAIN): Obesity is unchanged. Discussed the patient's BMI. The BMI is above average. BMI management plan is completed. BMI Follow-up includes: nutrition counseling, exercise counseling and education provided. Encounter for pre-operative examination 05/23/2019 02/28/2020 Assessment & Plan (05/23/2019 2:40 PM RIVERBOAT CAPTAIN): Discussed with patient preoperative exam and EKG [...] 19 Assessment & Plan (05/23/2019 1:30 PM RIVERBOAT CAPTAIN): Obesity is unchanged. Discussed the patient's BMI. [...]
--- OUTSIDE RECORDS SUMMARY | 2025-02-21 20:45 | XMS_ITS | Clinical Summary ---
Author Organization [facility] Address [address] [place] [id number] Care Team Providers Care C Unix Developer Name Role Phone Jer Wahl MD Primary Care Provider [phone] Social History Tobacco Use Types Packs/Day Years [...] complete this topic Insurance [employer] Care Teams C Unix Developer Relationship Specialty Start Date End Date Jer Wahl MD [address] [address] PCP - General 10/24/13
[2025-02-21] MEDS: MECLIZINE HCL 25 MG TABLET PO (20:57)
[2025-02-21] MEDS: ONDANSETRON INJ 4 MG/2 ML VIAL IV PUSH (20:57)
[2025-02-21 20:58] VITALS: BP 141/58; PULSE 55; RESP 10; O2SAT 98
[2025-02-21 22:26] VITALS: BP 142/63; PULSE 50; RESP 14; O2SAT 97
== END 2025-02-21 22:39 | disposition home or self-care (01) ==
PROVIDERS: Physician Assistant; Emergency Provider Emergency Medicine; PCP Physician Assistant
DX: H81.10 Benign paroxysmal vertigo, unspecified ear (principal); F90.9 Attention-deficit hyperactivity disorder, unspecified type; J45.909 Unspecified asthma, uncomplicated; F32.A Depression, unspecified
CPT/HCPCS: 36415; 70450; 70496; 70498; 71046; 80053; 81001; 85025; 93005; 96374; 99284; A9270; J2405; Q9967

== ENCOUNTER 2025-03-01 17:10 | Emergency (ER) | payer MEDICARE, SELFPAY ==
[2025-03-01 17:16] VITALS: BP 123/68; PULSE 72; RESP 16; TEMP 37.4; O2SAT 97
--- NOTE | 2025-03-01 17:35 | ED_ITS ---
HPI - Skin/Abscess/Foreign Bdy General Chief complaint: Skin/Abscess/Foreign Body Stated complaint: rash all over body Time Seen by Provider: 03/01/25 17:20 Source: patient Mode of arrival: ambulatory Limitations: no limitations History of Present Illness HPI narrative: Carolina is a 74-year-old female patient presenting to the clinic today with complaints of a rash on her arms and trunk. She reports she had a burning pain to her back yesterday however that burning has resolved. Has recently the had a viral illness and developed some fever blisters however those symptoms all resolving. Ate some salmon today around 12 30 and developed a rash after eating salmon. She has had no reaction to eating salmon in the past. Denies any shortness of breath, chest pain, difficulty breathing, drooling, or difficulty swallowing. States the rash is not bothersome but she does have some itching on her arms. Has tried taking Benadryl without relief. Denies any fevers, chills, body aches. No new environmental changes, soaps, shampoos, detergents, lotions, or medications. She is not currently taking any antibiotics. Related Data Home Medications ?Medication ?Instructions ?Recorded ?Confirmed ?Last Taken ?Type escitalopram oxalate 10 mg tablet 10 mg PO DAILY 04/1504/20/24 Unknown History (Lexapro) omeprazole 20 mg capsule,delayed 20 mg PO DAILY 04/20/24 Unknown History release fluticasone propionate 115 1 puff inhalation PRN PRN 1 08/24/20 04/20/24 Unknown History mcg-salmeterol 21 mcg/actuation difficulty breathing HFA inhaler (Advair HFA) rosuvastatin 5 mg tablet 5 mg PO DAILY 06/23/2104/20 Unknown History tamoxifen 20 mg tablet 20 mg PO DAILY 04/16/2204/05 Unknown History Allergies Allergy/AdvReac Type Severity Reaction Status Date / Time nitrofurantoin Allergy Severe Hives Verified 03/01/25 17:11 cephalexin Allergy Unknown Hives Verified 03/01/25 17:11 codeine Allergy Unknown Abdominal Verified 03/01/25 17:11 Pain Penicillins Allergy Unknown Swelling Verified 03/01/25 17:11 Review of Systems Review of Systems: Pertinent positives per HPI. Patient denies any fever, chills, headache, visual changes, dizziness, cough, runny nose, sore throat, shortness of breath, chest pain, palpitations, nausea, vomiting, diarrhea, constipation, abdominal pain, or any urinary issues. REPLACED BY [facility] Past Medical History Medical History ADHD Asthma Depression Surgical History Surgical History H/O adenoidectomy History of appendectomy History of lumpectomy Hx of hysterectomy Hx of tonsillectomy Family History Family History Sibling Hypertension Grandparent Cerebrovascular accident Diabetes mellitus Father Family history of malignant neoplasm of urinary bladder, Onset Age: 68 Family history of alcoholism, Onset Age: 68 Mother Family history of dementia, Onset Age: 84 Social History Social History Smoking status: Never smoker Alcohol intake: current Comments At the time of my signature, I reviewed and agree with the nursing past medical, surgical, social, and family history. There is no relevant family history pe rtinent to the patient complaint. Course Course Emergency Course: Portions of this record may have been created with voice recognition software. Level of Care: Express Care Visit Vital Signs Vital signs: Vital Signs Temperature 37.4 C 03/01/25 17:16 Pulse Rate 72 03/01/25 17:16 Respiratory Rate 16 03/01/25 17:16 Blood Pressure 123/68 03/01/25 17:16 Pulse Oximetry 97 03/01/25 17:16 Oxygen Delivery Room Air 03/01/25 17:16 Temperature 37.4 C 03/01/25 17:16 Pulse Rate 72 03/01/25 17:16 Respiratory Rate 16 03/01/25 17:16 Blood Pressure 123/68 03/01/25 17:16 Pulse Oximetry 97 03/01/25 17:16 Oxygen Delivery Room Air 03/01/25 17:16 Vital signs reviewed MDM - Skin/Abscess/Foreign Bdy MDM Narrative Medical decision making narrative: At the time of visit patient is resting comfortably on the exam table. Patient appears to be nontoxic. Complaints of a rash on her arms and trunk. She reports she had a burning pain to her back yesterday however that burning has resolved. Has recently the had a viral illness and developed some fever blisters however those symptoms all resolving. Ate some salmon today around 12 30 and developed a rash after eating salmon. She has had no reaction to eating salmon in the past. Denies any shortness of breath, chest pain, difficulty breathing, drooling, or difficulty swallowing. States the rash is not bothersome but she does have some itching on her arms. Has tried taking Benadryl without relief. Denies any fevers, chills, body aches. No new environmental changes, soaps, shampoos, detergents, lotions, or medications. She is not currently taking any antibiotics. On exam patient has a non raised red scattered macular rash on her chest, abdomen, and back. I suspect etiology verses allergic response. Plan: Has nonspecific rash in the clinic today. 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 Recommend going to the emergency room if she develops any worsening of symptoms Supportive measures were discussed with the patient and they voiced understanding discharge instructions and agrees to treatment plan. Return precautions reviewed Differential Diagnosis Differential diagnosis: Likely abscess of skin or subcutaneous tissue, viral exanthem, dermatophytosis, urticaria, herpes zoster, allergic reaction to drug, cellulitis, eczema, insect bites, impetigo and contact dermatitis Discharge Plan Discharge Clinical Impression: Rash and nonspecific skin eruption Patient Disposition: Home Condition: Stable Instructions: Antibiotic Form, Acute Rash (ED) Additional Instructions: Take prednisone as directed Avoid hot showers Avoid scratching as this can cause a secondary infection May take benadryl 25-50mg every 6 hours as needed for itching. Follow up with your PCP in 3-5 days if symptoms persist or sooner if they worsen Go to the Emergency Room if symptoms worsen- fever, rash spreading with treatment, shortness of breath, tongue swelling, drooling, or chest pain Patient Language: Wolof Prescriptions: New prednisone 20 mg tablet 40 mg PO DAILY 5 Days Qty: 10 0RF No Action rosuvastatin 5 mg tablet 5 mg PO DAILY Advair HFA 115-21 mcg/actuation HFA aerosol inhaler 1 puff INHALATION PRN PRN (Reason: difficulty breathing) ipratropium bromide 0.03 % spray,non-aerosol 2 spray NASAL TID PRN (Reason: nasal drainage) Qty: 30 0RF Rx Instructions: administer into each nostril omeprazole 20 mg capsule,delayed release(DR/EC) 20 mg PO DAILY escitalopram oxalate [Lexapro] 10 mg tablet 10 mg PO DAILY tamoxifen 20 mg tablet 20 mg PO DAILY albuterol sulfate 90 mcg/actuation HFA aerosol inhaler 1 - 2 puff inhalation Q4-6H PRN (Reason: shortness of breath or wheezing) Qty: 8.5 2RF naproxen 375 mg tablet 375 mg PO BID Qty: 14 0RF meclizine 25 mg tablet 25 mg PO BID PRN (Reason: dizziness) 7 Days Qty: 14 0RF Follow-up/Referrals: Jose,Wayne Campbell MD [Primary Care Provider] Quality NIHSS Nursing Documentation ED NIHSS nursing documentation: reviewed/agree
== END 2025-03-01 17:43 | disposition home or self-care (01) ==
PROVIDERS: Emergency Provider Nurse Practitioner Family; PCP Family Medicine
DX: R21 Rash and other nonspecific skin eruption (principal)
CPT/HCPCS: 99213; G0463